=== PATIENT | male | born 1950 | race Caucasian/White ===

== ENCOUNTER 2022-06-26 15:16 | Inpatient (IN) | payer MEDICARE ==
[2022-06-26] MEDS ORDERED: SODIUM CHLORIDE 0.9% 500 ML 500 ML IV ONE (15:53)
--- NOTE | 2022-06-26 16:06 | ED ---
Syncope HPI - General Stated Complaint: Syncope Time Seen by Provider: 06/26/22 15:29 Source: patient Limitations: no limitations - History of Present Illness Initial Comments: This patient is a 71-year-old man who was sent here from the neurology clinic to have evaluation for syncopal episode. The patient had reportedly gone there with his this morning to be evaluated for generalized weakness and numbness throughout his whole body. Patient was having evaluation there when he reportedly passed out. The patient denies having any fall or injury. The patient states he feels some generalized weakness but otherwise back at his baseline. Patient states that he is only able to go from room to room in his home by holding onto the jones. He describes having his entire body be "numb" going back for 12 years. He does not see a primary physician. MD Complaint: collapsed -: hour(s) Prodromal Symptoms: lightheaded Witnessed: yes - by bystander Injuries Sustained Associated with Event: None Current Symptoms: weakness Treatments Prior to Arrival: none - Related Data Allergies Allergy/AdvReac Type Severity Reaction Status Date / Time No Known Allergies Allergy Verified 06/26/22 17:13 Review of Systems ROS Statement: Those systems with pertinent positive or pertinent negative responses have been documented in the HPI. ROS Other: All systems not noted in ROS Statement are negative. Constitutional: Reports: weakness Eyes: Denies: vision change ENT: Denies: congestion Respiratory: Denies: cough, dyspnea, hemoptysis Cardiovascular: Reports: syncope. Denies: chest pain, palpitations, orthopnea, edema Gastrointestinal: Denies: abdominal pain, vomiting, diarrhea, melena, hematochezia Genitourinary: Denies: dysuria, hematuria Musculoskeletal: Denies: back pain Skin: Denies: rash Neurological: Reports: abnormal gait. Denies: headache, weakness, numbness General Exam General appearance: alert, cachectic Head exam: Present: atraumatic, normocephalic Eye exam: Present: normal appearance. Absent: scleral icterus, conjunctival injection ENT exam: Present: mucous membranes dry Neck exam: Present: normal inspection Respiratory exam: Present: normal lung sounds bilaterally. Absent: respiratory distress, wheezes, rales, rhonchi, stridor Cardiovascular Exam: Present: regular rate, normal rhythm, normal heart sounds. Absent: systolic murmur, diastolic murmur, rubs, gallop GI/Abdominal exam: Present: soft. Absent: distended, tenderness, guarding, rebound, mass Extremities exam: Present: normal inspection, normal capillary refill. Absent: pedal edema, calf tenderness Neurological exam: Present: alert, CN II-XII intact. Absent: oriented X3 (The patient not able to state the exact date.), motor sensory deficit Skin exam: Present: warm, dry, intact, normal color. Absent: rash Course Vital Signs 06/26/22 06/26/22 15:30 19:14 Temperature 97.2 F L 98.0 F Pulse Rate 72 73 Respiratory 18 20 Rate Blood Pressure 150/68 103/74 O2 Sat by Pulse 96 100 Oximetry EKG Findings - EKG Comments: EKG Findings:: 12-lead ECG interpretation is extremely limited due to artifact, but shows sinus rhythm rate 89 - EKG Results: EKG: interpreted by RAUDEL, sinus rhythm (Rate 89 bpm) - Blocks, [place], Hypertrophy, ST Abn: AV and intraventricular conduction: 1 AV block Medical Decision Making - Medical Decision Making Patient is 71-year-old man here for syncopal episode. He is found to be moderately dehydrated, elevated lactic acid. No obvious source of infection, cultures are pending. Patient given IV fluids, but he is still too weak to stand at bedside or ambulate. We'll admit patient with possibility of rehabilitation/group home placement - Lab Data Result diagrams: 06/26/22 16:24 06/26/22 16:24 Lab Results 06/26/22 06/26/22 06/26/22 Range/Units 16:24 16:24 16:24 WBC 6.8 (3.8-10.6) k/uL RBC 4.04 L (4.30-5.90) m/uL Hgb 13.7 (13.0-17.5) gm/dL Hct 41.8 (39.0-53.0) % MCV 103.3 H (80.0-100.0) fL MCH 33.9 (25.0-35.0) pg MCHC 32.8 (31.0-37.0) g/dL RDW 13.3 (11.5-15.5) % Plt Count 243 (150-450) k/uL MPV 8.9 Neutrophils % (Manual) 67 % Lymphocytes % (Manual) 25 % Monocytes % (Manual) 8 % Neutrophils # (Manual) 4.56 (1.3-7.7) k/uL Lymphocytes # (Manual) 1.70 (1.0-4.8) k/uL Monocytes # (Manual) 0.54 (0-1.0) k/uL Nucleated RBCs 0 (0-0) /100 WBC Manual Slide Review Performed Macrocytosis Slight PT 10.1 (9.0-12.0) sec INR 0.9 (<1.2) APTT 18.8 L (22.0-30.0) sec Sodium 146 H (137-145) mmol/L Potassium 4.9 (3.5-5.1) mmol/L Chloride 111 H (98-107) mmol/L Carbon Dioxide 21 L (22-30) mmol/L Anion Gap 14 mmol/L BUN 25 H (9-20) mg/dL Creatinine 1.52 H (0.66-1.25) mg/dL Est GFR (CKD-EPI)AfAm 52 (>60 ml/min/1.73 sqM) Est GFR (CKD-EPI)NonAf 45 (>60 ml/min/1.73 sqM) Glucose 103 H (74-99) mg/dL POC Glucose (mg/dL) (70-110) mg/dL POC Glu Automation Controls Engineer ID Lactic Ac Sepsis Rflx Plasma Lactic Acid Jeremie (0.7-2.0) mmol/L Calcium 9.4 (8.4-10.2) mg/dL Total Bilirubin 0.3 (0.2-1.3) mg/dL AST 23 (17-59) U/L ALT 17 (4-49) U/L Alkaline Phosphatase 72 (38-126) U/L Ammonia (<30) umol/L Troponin I (0.000-0.034) ng/mL Total Protein 7.2 (6.3-8.2) g/dL Albumin 4.4 (3.5-5.0) g/dL Urine Color Urine Appearance (Clear) Urine pH (5.0-8.0) Ur Specific [place] (1.001-1.035) Urine Protein (Negative) Urine Glucose (UA) (Negative) Urine Ketones (Negative) Urine Blood (Negative) Urine Nitrite (Negative) Urine Bilirubin (Negative) Urine Urobilinogen (<2.0) mg/dL Ur Leukocyte Esterase (Negative) Serum Alcohol <10 mg/dL 06/26/22 06/26/22 06/26/22 Range/Units 16:24 16:24 16:26 WBC (3.8-10.6) k/uL RBC (4.30-5.90) m/uL Hgb (13.0-17.5) gm/dL Hct (39.0-53.0) % MCV (80.0-100.0) fL MCH (25.0-35.0) pg MCHC (31.0-37.0) g/dL RDW (11.5-15.5) % Plt Count (150-450) k/uL MPV Neutrophils % (Manual) % Lymphocytes % (Manual) % Monocytes % (Manual) % Neutrophils # (Manual) (1.3-7.7) k/uL Lymphocytes # (Manual) (1.0-4.8) k/uL Monocytes # (Manual) (0-1.0) k/uL Nucleated RBCs (0-0) /100 WBC Manual Slide Review Macrocytosis PT (9.0-12.0) sec INR (<1.2) APTT (22.0-30.0) sec Sodium (137-145) mmol/L Potassium (3.5-5.1) mmol/L Chloride (98-107) mmol/L Carbon Dioxide (22-30) mmol/L Anion Gap mmol/L BUN (9-20) mg/dL Creatinine (0.66-1.25) mg/dL Est GFR (CKD-EPI)AfAm (>60 ml/min/1.73 sqM) Est GFR (CKD-EPI)NonAf (>60 ml/min/1.73 sqM) Glucose (74-99) mg/dL POC Glucose (mg/dL) 140 H (70-110) mg/dL POC Glu Automation Controls Engineer ID Coleman Mallory Lactic Ac Sepsis Rflx Plasma Lactic Acid Jeremie 4.3 H* (0.7-2.0) mmol/L Calcium (8.4-10.2) mg/dL Total Bilirubin (0.2-1.3) mg/dL AST (17-59) U/L ALT (4-49) U/L Alkaline Phosphatase (38-126) U/L Ammonia <9 (<30) umol/L Troponin I <0.012 (0.000-0.034) ng/mL Total Protein (6.3-8.2) g/dL Albumin (3.5-5.0) g/dL Urine Color Urine Appearance (Clear) Urine pH (5.0-8.0) Ur Specific [place] (1.001-1.035) Urine Protein (Negative) Urine Glucose (UA) (Negative) Urine Ketones (Negative) Urine Blood (Negative) Urine Nitrite (Negative) Urine Bilirubin (Negative) Urine Urobilinogen (<2.0) mg/dL Ur Leukocyte Esterase (Negative) Serum Alcohol mg/dL 06/26/22 06/26/22 Range/Units 16:56 19:11 WBC (3.8-10.6) k/uL RBC (4.30-5.90) m/uL Hgb (13.0-17.5) gm/dL Hct (39.0-53.0) % MCV (80.0-100.0) fL MCH (25.0-35.0) pg MCHC (31.0-37.0) g/dL RDW (11.5-15.5) % Plt Count (150-450) k/uL MPV Neutrophils % (Manual) % Lymphocytes % (Manual) % Monocytes % (Manual) % Neutrophils # (Manual) (1.3-7.7) k/uL Lymphocytes # (Manual) (1.0-4.8) k/uL Monocytes # (Manual) (0-1.0) k/uL Nucleated RBCs (0-0) /100 WBC Manual Slide Review Macrocytosis PT (9.0-12.0) sec INR (<1.2) APTT (22.0-30.0) sec Sodium (137-145) mmol/L Potassium (3.5-5.1) mmol/L Chloride (98-107) mmol/L Carbon Dioxide (22-30) mmol/L Anion Gap mmol/L BUN (9-20) mg/dL Creatinine (0.66-1.25) mg/dL Est GFR (CKD-EPI)AfAm (>60 ml/min/1.73 sqM) Est GFR (CKD-EPI)NonAf (>60 ml/min/1.73 sqM) Glucose (74-99) mg/dL POC Glucose (mg/dL) (70-110) mg/dL POC Glu Automation Controls Engineer ID Lactic Ac Sepsis Rflx Y Plasma Lactic Acid Jeremie (0.7-2.0) mmol/L Calcium (8.4-10.2) mg/dL Total Bilirubin (0.2-1.3) mg/dL AST (17-59) U/L ALT (4-49) U/L Alkaline Phosphatase (38-126) U/L Ammonia (<30) umol/L Troponin I (0.000-0.034) ng/mL Total Protein (6.3-8.2) g/dL Albumin (3.5-5.0) g/dL Urine Color Light Yellow Urine Appearance Clear (Clear) Urine pH 6.5 (5.0-8.0) Ur Specific [place] 1.015 (1.001-1.035) Urine Protein Trace H (Negative) Urine Glucose (UA) Negative (Negative) Urine Ketones Negative (Negative) Urine Blood Negative (Negative) Urine Nitrite Negative (Negative) Urine Bilirubin Negative (Negative) Urine Urobilinogen <2.0 (<2.0) mg/dL Ur Leukocyte Esterase Negative (Negative) Serum Alcohol mg/dL Disposition Clinical Impression: Generalized weakness, Lactic acidosis Disposition: ADMITTED IP TO THIS HOSP Condition: Fair Is patient prescribed a controlled substance at d/c from ED?: No Referrals: None,Stated [Primary Care Provider] - 1-2 days
[2022-06-26 16:29] LABS: Glucose,Whole Blood 140 mg/dL (70-110)
[2022-06-26 16:52] LABS: ALT 17 U/L (4-49); AST 23 U/L (17-59); African American GFR (CKD) 52 (>60 ml/min/1.73 sqM); Albumin 4.4 g/dL (3.5-5.0); Alcohol <10 mg/dL; Alkaline Phosphatase 72 U/L (38-126); Anion Gap 14 mmol/L; Blood Urea Nitrogen 25 mg/dL (9-20); Calcium 9.4 mg/dL (8.4-10.2); Carbon Dioxide 21 mmol/L (22-30); Chloride 111 mmol/L (98-107); Glucose 103 mg/dL (74-99); Non-African American GFR(CKD) 45 (>60 ml/min/1.73 sqM); Potassium 4.9 mmol/L (3.5-5.1); Sodium 146 mmol/L (137-145); Total Bilirubin 0.3 mg/dL (0.2-1.3); Total Protein 7.2 g/dL (6.3-8.2)
[2022-06-26 16:56] LABS: Lactic Acid, Venous 4.3 mmol/L (0.7-2.0)
[2022-06-26 17:00] LABS: INR 0.9 (<1.2); Prothrombin Time 10.1 sec (9.0-12.0)
[2022-06-26 17:02] LABS: HCT 41.8 % (39.0-53.0); HGB 13.7 gm/dL (13.0-17.5); MCH 33.9 pg (25.0-35.0); MCHC 32.8 g/dL (31.0-37.0); MCV 103.3 fL (80.0-100.0); Macrocytosis Slight; Mean Platelet Volume 8.9; Platelet Count 243 k/uL (150-450); RBC 4.04 m/uL (4.30-5.90); RDW 13.3 % (11.5-15.5); WBC 6.8 k/uL (3.8-10.6)
[2022-06-26 17:04] LABS: Partial Thromboplastin Time 18.8 sec (22.0-30.0)
[2022-06-26 17:12] LABS: Monocytes # (M) 0.54 k/uL (0-1.0); Neutrophils # (M) 4.56 k/uL (1.3-7.7); Neutrophils % (M) 67 %; Nucleated Red Blood Cells 0 /100 WBC (0-0); Total Cells Counted 100
--- NOTE | 2022-06-26 17:40 | CT ---
EXAMINATION TYPE: CT brain wo con DATE OF EXAM: 06/26/2022 COMPARISON: None HISTORY: Altered mental status CT DLP: 1090.4 mGycm Automated exposure control for dose reduction was used. There is mild cerebral cortical atrophy. There is no mass effect nor midline shift. There is no evide nce of intracranial hemorrhage. There is patchy hypodensity in the periventricular white matter. Ther e is 1 cm old lacunar infarct in the mid right internal capsule. The calvarium is intact. IMPRESSION: Mild atrophy. Chronic small vessel ischemia. No acute intracranial abnormality. Left-sided mastoiditi s noted.
--- NOTE | 2022-06-26 17:47 | XR ---
EXAMINATION TYPE: XR chest 2V DATE OF EXAM: 06/26/2022 COMPARISON: NONE HISTORY: Altered mental status. Short of breath TECHNIQUE: 3 views FINDINGS: Heart is normal. Lungs are clear of infiltrate. No heart failure. There are no hilar masses . There is a mild pectus excavatum chest deformity. A small reticular interstitial density lateral ri ght upper lobe. IMPRESSION: There is probably some COPD. Mild pulmonary hyperinflation. Mild scarring or subsegmental atelectasis right upper lobe.
[2022-06-26] MEDS ORDERED: SODIUM CHLORIDE 0.9% 500 ML 500 ML IV STA (18:56)
[2022-06-26 19:33] LABS: Appearance,Urine Clear (Clear); Bilirubin,Urine Negative (Negative); Blood,Urine Negative (Negative); Color,Urine Light Yellow; Glucose,Urine (UA) Negative (Negative); Ketones,Urine Negative (Negative); Leukocyte Esterase,Urine Negative (Negative); Nitrite,Urine Negative (Negative); PH, Urine 6.5 (5.0-8.0); Protein,Urine Trace (Negative); Specific Gravity,Urine 1.015 (1.001-1.035); Urobilinogen,Urine <2.0 mg/dL (<2.0)
[2022-06-26] MEDS ORDERED: SODIUM CHLORIDE 0.9% 1,000 ML IV ONE (19:58)
[2022-06-26] MEDS ORDERED: NALOXONE 0.4 MG/ML 1 ML VIAL IV PRN (20:11)
--- NOTE | 2022-06-27 00:50 | P.HPIM ---
History of Present Illness H&P Date: 06/26/22 Chief Complaint: Syncope 71-year-old male with BPH Patient was visiting and neurology office today as he's been dealing with paresthesia of the hands and feet for over 12 years now is also struggling with gait for about 5 years now as he can't walk without leaning against wall and furniture as he loses balance. He also admits to multiple episodes of syncope over the past month. And today while he was at the neurology office he had another episode of syncope which she can't recall. No reported seizure-like activity loss of bladder or bowel control or biting tongue. Patient denies any associated palpitations or shortness of breath he literally doesn't remember wha t happened and he felt nothing before or after the episode. EMS was notified and he was brought into the hospital for evaluation. Blood work was done showed mAcrocytosis without anemia, elevated renal function creatinine without baseline, CT of the brain showed no acute pathology Patient denies any recent hospitalization or traveling. He denies any fevers or chills denies any coughing chest pain or trouble breathing denies any abdominal pain nausea vomiting or diarrhea. Patient does admit to heavy smoking denies any illicit drugs or alcohol. Patient also admits to poor appetite but claims that his weight has been stable which she is very thin built and cachectic Review of Systems Pertinent positives as noted in HPI. All other systems were reviewed and are negative Past Medical History Past Medical History: No Reported History History of Any Multi-Drug Resistant Organisms: None Reported Past Surgical History: No Surgical Hx Reported Past Psychological History: No Psychological Hx Reported Smoking Status: Current every day smoker Past Alcohol Use History: None Reported, Daily Past Drug Use History: None Reported - Past Family History family Additional Family Medical History / Comment(s): no reported CAD, OR CANCER Medications and Allergies Home Medications Medication Instructions Recorded Confirmed Type Ibuprofen [Motrin Ib] 600 mg PO BID 06/26/22 06/26/22 History Allergies Allergy/AdvReac Type Severity Reaction Status Date / Time No Known Allergies Allergy Verified 06/26/22 20:35 Physical Exam Vitals: Vital Signs Temp Pulse Resp BP Pulse Ox 06/26/22 19:14 98.0 F 73 20 103/74 100 06/26/22 15:30 97.2 F L 72 18 150/68 96 Intake and Output 06/26/22 06/26/22 06/26/22 06:59 14:59 22:59 Other: Weight 56.699 kg Constitutional: No acute distress, conversant, pleasant, cachectic Eyes: Anicteric sclerae, moist conjunctiva, Pupils equal round reactive to light ENMT: NC/AT Oropharynx clear, no erythema, or exudates Neck: Supple, FROM, no masses, or JVD No carotid bruits No thyromegaly Lungs: Clear to auscultation Clear to percussion Normal respiratory effort, no accessory muscle use Cardiovascular: Heart regular in rate and rhythm, No murmurs, gallops, or rubs No peripheral edema Abdominal: Soft Nontender, no guarding, rebound or rigidity Abdomen moving with respiration Normoactive bowel sounds No hepatomegaly, No splenomegaly No palpable mass No abdominal wall hernia noted Skin: Normal temperature, tone, texture, turgor No induration No subcutaneous nodules No rash, lesions No ulcers Extremities: No digital cyanosis No clubbing Pedal pulses intact and symmetrical Radial pulses intact and symmetrical No calf tenderness Psychiatric: Alert and oriented to person, place and time Appropriate affect fair judgement Neuro Muscles Strength 4/5 in all 4 extremities Decreased sensation to light touch over bilateral feet and hands Cranial nerves II-XII grossly intact Lymphatics: no palpable cervical or supraclavicular lymph nodes Results CBC & Chem 7: 06/26/22 16:24 06/26/22 16:24 Labs: Abnormal Lab Results - Last 24 Hours (Table) 06/26/22 06/26/22 06/26/22 Range/Units 16:24 16:24 16:24 RBC 4.04 L (4.30-5.90) m/uL MCV 103.3 H (80.0-100.0) fL APTT 18.8 L (22.0-30.0) sec Sodium 146 H (137-145) mmol/L Chloride 111 H (98-107) mmol/L Carbon Dioxide 21 L (22-30) mmol/L BUN 25 H (9-20) mg/dL Creatinine 1.52 H (0.66-1.25) mg/dL Glucose 103 H (74-99) mg/dL POC Glucose (mg/dL) (70-110) mg/dL Plasma Lactic Acid Jeremie (0.7-2.0) mmol/L Urine Protein (Negative) 06/26/22 06/26/22 06/26/22 Range/Units 16:24 16:26 19:11 RBC (4.30-5.90) m/uL MCV (80.0-100.0) fL APTT (22.0-30.0) sec Sodium (137-145) mmol/L Chloride (98-107) mmol/L Carbon Dioxide (22-30) mmol/L BUN (9-20) mg/dL Creatinine (0.66-1.25) mg/dL Glucose (74-99) mg/dL POC Glucose (mg/dL) 140 H (70-110) mg/dL Plasma Lactic Acid Jeremie 4.3 H* (0.7-2.0) mmol/L Urine Protein Trace H (Negative) Assessment and Plan Assessment: Frequent episodes of syncope Gait instability Macrocytosis without anemia Peripheral neuropathy Acute kidney injury Plan Neurochecks Fall precautions CT of the brain no acute pathology Check vitamin B12, vitamin D hydroxy 25, TSH, RBC folate PT consultation Neurology consult Initiate patient on Neurontin 100 mg 3 times a day residential monitor Check echocardiogram Avoid nephrotoxic meds IV fluid hydration with normal saline Monitor renal function Monitor urine output Ensure with all meals Nutrition consult Tobacco smoking daily Counseled to quit smoking DVT prophylaxis mechanical Full code
[2022-06-27] MEDS: GABAPENTIN 100 MG CAP PO SCH ×4 (01:44→23:05)
[2022-06-27] MEDS: ACETAMINOPHEN TAB 325 MG TAB PO PRN (04:57)
[2022-06-27] MEDS ORDERED: PANTOPRAZOLE 40 MG/10 ML VIAL IV SCH (09:00)
--- NOTE | 2022-06-27 11:02 | CA ---
Transthoracic Echo Report Name: Brenton Moraes Age: 71 Gender: M : 1950 Exam Date: 06/27/2022 08:13 Exam Location: [place] [facility] Ht (in): 60 Wt (lb): 125 Ordering Physician: Steven Call MD Attending/Referring Phys: [id number], Jakub Tap Builder Elvira Christina RDCS Procedure CPT: Indications: Syncope Cardiac Hx: Technical Quality: Fair Contrast 1: Total Dose (mL): Contrast 2: Total Dose (mL): MEASUREMENTS (Male / Female) Normal Values 2D ECHO LV Diastolic Diameter PLAX 4.3 cm 4.2 - 5.9 / 3.9 - 5.3 cm LV Systolic Diameter PLAX 3.0 cm IVS Diastolic Thickness 1.3 cm 0.6 - 1.0 / 0.6 - 0.9 cm LVPW Diastolic Thickness 1.1 cm 0.6 - 1.0 / 0.6 - 0.9 cm LV Relative Wall Thickness 0.5 RV Internal Dim ED PLAX 2.3 cm LA Systolic Diameter LX 2.4 cm 3.0 - 4.0 / 2.7 - 3.8 cm M-MODE Aortic Root Diameter MM 3.4 cm LA Systolic Diameter MM 4.2 cm LA Ao Ratio MM 1.2 MV E Point Septal Separation 0.5 cm AV Cusp Separation MM 2.6 cm DOPPLER MV Area PHT 3.2 cm??? Mitral E Point Velocity 51.4 cm/s Mitral A Point Velocity 71.1 cm/s Mitral E to A Ratio 0.7 MV Deceleration Time 233.7 ms MV E' Velocity 4.4 cm/s Mitral E to MV E' Ratio 11.6 FINDINGS Left Ventricle Left ventricular ejection fraction is estimated at 50-55%. Mildly increased left ventricular wall thickness. Right Ventricle Normal right ventricular size and function. Right Atrium Normal right atrial size. Left Atrium Normal left atrial size. Mitral Valve Structurally normal mitral valve. Trace to mild mitral regurgitation. Aortic Valve Aortic valve not well visualized. Tricuspid Valve Structurally normal tricuspid valve. Mild tricuspid regurgitation. Pulmonic Valve Structurally normal pulmonic valve. Pericardium Normal pericardium. Aorta Normal size aortic root and proximal ascending aorta. CONCLUSIONS Technically difficult study for interpretation Normal left ventricular dimension and systolic function Poorly visualized intracardiac valves Previewed by: Dr. Salvador Nguyen MD (Electronically Signed) Final Date: 27 June 2022 11:01
--- NOTE | 2022-06-27 12:03 | US ---
EXAMINATION TYPE: US carotid duplex BILAT DATE OF EXAM: 06/27/2022 COMPARISON: NONE CLINICAL HISTORY: syncope. Syncope, weakness TECHNIQUE: Carotid duplex ultrasound examination. Indirect Doppler criteria was utilized. FINDINGS: EXAM MEASUREMENTS: RIGHT: Peak Systolic Velocity (PSV) cm/sec ----- Right CCA: 65.8 ----- Right ICA: 197.6 ----- Right ECA: 81.9 ICA/CCA ratio: 3.0 RIGHT: End Diastole cm/sec ----- Right CCA: 15.3 ----- Right ICA: 33.2 ----- Right ECA: 0.0 LEFT: Peak Systolic Velocity (PSV) cm/sec ----- Left CCA: 120.0 ----- Left ICA: 122.6 ----- Left ECA: 102.3 ICA/CCA ratio: 1.0 LEFT: End Diastole cm/sec ----- Left CCA: 11.6 ----- Left ICA: 28.9 ----- Left ECA: 11.9 VERTEBRALS (direction of flow): Right Vertebral: Antegrade Left Vertebral: Unable to visualize Rhythm: Normal WAGON WASHER NOTES: Heterogeneous plaque bilaterally with elevated velocities right ICA IMPRESSION: 1. Atheromatous plaquing bilaterally greater on the right. 2. Moderate narrowing between 50 and 69% proximal right internal carotid artery. 3. Mild narrowing approaching 50% within the proximal left internal carotid artery. Criteria for Assigning % of Stenosis / Diameter reduction (Estimation based on the indirect measurements of the internal carotid artery velocities (ICA PSV). 1. Normal (no stenosis)=ICA PSV < 125 cm/s: ratio < 2.0: ICA EDV<40 cm/s. 2. Less than 50% stenosis=ICA PSV < 125 cm/s: ratio < 2.0: ICA EDV<40 cm/s. 3. 50 to 69% stenosis=ICA PSV of 125 to 230 cm/s: ration 2.0 ? 4.0: ICA EDV 40-100 cm/s. 4. Greater than 70% stenosis to near occlusion= ICA PSV > 230 cm/s: ratio > 4.0: ICA EDV > 100 cm/s. 5. Near occlusion= ICA PSV velocities may be low or undetectable: variable ratio and ICA EDV. 6. Total occlusion=unable to detect flow.
--- NOTE | 2022-06-27 12:06 | XR ---
EXAMINATION TYPE: XR lumbar spine 2 or 3V DATE OF EXAM: 06/27/2022 COMPARISON: None HISTORY: Gait instability and numbness to lower extremities TECHNIQUE: 3 view lumbar spine FINDINGS: There is a grade 1 anterior listhesis of L4 anteriorly on L5. There is a grade 1 retrolist hesis of L2 posteriorly on L3. Some mild superior endplate compression changes may be present at L2 There is posterior disc space narrowing present at L2-3 L3-4. Mild diffuse disc space narrowing is pr esent L5-S1. Rotoscoliosis is present. IMPRESSION: 1. Grade 1 anterolisthesis of L4 anteriorly on L5. A grade 1 retrolisthesis of L2 on L3 is present. 2. Mild superior endplate changes L2. 3. Degenerative disc changes
--- NOTE | 2022-06-27 14:33 | P.PN ---
Subjective Progress Note Date: 06/27/22 Patient seen and examined at bedside. Patient denied chest pain shortness of breath nausea vomiting fevers or chills. Patient continues to have upper and lower extremity neuropathy and pain. Patient also admits to back pain. Objective - Vital Signs Vital signs: Vital Signs Temp 98 F 06/27/22 09:41 Pulse 70 06/27/22 09:41 Resp 16 06/27/22 09:41 BP 114/74 06/27/22 09:41 Pulse Ox 96 06/27/22 09:41 FiO2 Intake & Output 06/26/22 06/27/22 06/27/22 18:59 06:59 18:59 Output Total 400 Balance -400 Weight 56.699 kg Output: Urine 400 Other: # Voids 1 - Exam General: [non toxic], [no distress], [appears at stated age] Derm: [warm], [dry] Head: [atraumatic], [normocephalic], [symmetric] Eyes: [EOMI], [no lid lag], [anicteric sclera] Mouth: [no lip lesion], [mucus membranes moist] Cardiovascular: [S1S2 reg], [no murmur], [positive posterior tibial pulse bilateral], Lungs: [CTA bilateral], [no rhonchi, no rales] , [no accessory muscle use] Abdominal: [soft], [ nontender to palpation], [no guarding], [no appreciable organomegaly] Ext: [4 out of 5 bilateral muscle strength gross muscle atrophy], [no edema], [no contractures] Neuro: [ CN II-XI grossly intact], [no focal neuro deficits] Psych: [Alert], [oriented], [appropriate affect] - Labs CBC & Chem 7: 06/26/22 16:24 06/26/22 16:24 Labs: Abnormal Lab Results - Last 24 Hours (Table) 06/26/22 06/26/22 06/26/22 Range/Units 16:24 16:24 16:24 RBC 4.04 L (4.30-5.90) m/uL MCV 103.3 H (80.0-100.0) fL APTT 18.8 L (22.0-30.0) sec Sodium 146 H (137-145) mmol/L Chloride 111 H (98-107) mmol/L Carbon Dioxide 21 L (22-30) mmol/L BUN 25 H (9-20) mg/dL Creatinine 1.52 H (0.66-1.25) mg/dL Glucose 103 H (74-99) mg/dL POC Glucose (mg/dL) (70-110) mg/dL Plasma Lactic Acid Jeremie (0.7-2.0) mmol/L Urine Protein (Negative) 06/26/22 06/26/22 06/26/22 Range/Units 16:24 16:26 19:11 RBC (4.30-5.90) m/uL MCV (80.0-100.0) fL APTT (22.0-30.0) sec Sodium (137-145) mmol/L Chloride (98-107) mmol/L Carbon Dioxide (22-30) mmol/L BUN (9-20) mg/dL Creatinine (0.66-1.25) mg/dL Glucose (74-99) mg/dL POC Glucose (mg/dL) 140 H (70-110) mg/dL Plasma Lactic Acid Jeremie 4.3 H* (0.7-2.0) mmol/L Urine Protein Trace H (Negative) Assessment and Plan Assessment: Assessment/Plan 1. 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 Macrocytosis without anemia Trend CBC Vitamin B12 within normal limits 3. Peripheral neuropathy initiate patient on Neurontin 100 mg 3 times a day 4.Acute kidney injury Slow IV hydration Trend BUN and creatinine 5. malnutrtion Ensure with all meals Nutrition consult 6. Tobacco smoking daily Counseled to quit smoking DVT prophylaxis mechanical Full code
[2022-06-27] MEDS: SODIUM CHLORIDE 0.9% 1,000 ML IV SCH (15:07)
[2022-06-27 15:22] VITALS: BMI 17.9
[2022-06-27 15:27] LABS: ALT 18 U/L (4-49); AST 24 U/L (17-59); African American GFR (CKD) 78 (>60 ml/min/1.73 sqM); Albumin 3.5 g/dL (3.5-5.0); Albumin/Globulin Ratio 1.5; Alkaline Phosphatase 63 U/L (38-126); Anion Gap 10 mmol/L; Blood Urea Nitrogen 22 mg/dL (9-20); Calcium 8.8 mg/dL (8.4-10.2); Carbon Dioxide 22 mmol/L (22-30); Chloride 109 mmol/L (98-107); Globulin 2.4 g/dL; Glucose 118 mg/dL (74-99); Non-African American GFR(CKD) 68 (>60 ml/min/1.73 sqM); Sodium 141 mmol/L (137-145); Total Bilirubin 0.3 mg/dL (0.2-1.3); Total Protein 5.9 g/dL (6.3-8.2)
[2022-06-27 15:35] LABS: Basophils # (A) 0.1 k/uL (0-0.2); Basophils % (A) 1 %; Eosinophils # (A) 0.2 k/uL (0-0.7); Eosinophils % (A) 3 %; HCT 32.8 % (39.0-53.0); Hypochromasia Slight; Lymphocytes # (A) 1.5 k/uL (1.0-4.8); Lymphocytes % (A) 31 %; MCH 34.8 pg (25.0-35.0); MCHC 33.5 g/dL (31.0-37.0); MCV 103.9 fL (80.0-100.0); Macrocytosis Slight; Mean Platelet Volume 8.3; Monocytes # (A) 0.4 k/uL (0-1.0); Monocytes % (A) 9 %; Neutrophils # (A) 2.6 k/uL (1.3-7.7); Neutrophils % (A) 52 %; Platelet Count 224 k/uL (150-450); RBC 3.15 m/uL (4.30-5.90); RDW 12.8 % (11.5-15.5); WBC 4.9 k/uL (3.8-10.6)
--- NOTE | 2022-06-27 18:23 | MR ---
EXAMINATION TYPE: MR brain/cspine wo DATE OF EXAM: 06/27/2022 COMPARISON: None HISTORY: Weakness, ataxia Multiplanar multiecho imaging of the brain and cervical spine performed without contrast. On the T2 and FLAIR images there are numerous areas of increased signal in the periventricular white matter and noel-white matter junction of both cerebral hemispheres. These are somewhat coalescent and measure up to 1.3 cm in thickness. There are multiple discrete high signal foci on the diffusion lavon ges in the right centrum semiovale that measure up to almost 10 mm. There is also single 3 mm focus i n the posterior left thalamus. There is some cerebral mild cortical atrophy. The brainstem is intact. Cerebellum is intact. No evide nce of posterior fossa mass. Internal auditory canals appear normal. The cervical vertebra show fairly normal alignment. There is a minimal retrolisthesis at C6-7. There is posterior disc herniation at C6-7. There is a 5 mm area of increased signal on the T2 images in th e cervical cord at the C4-5 level. There is uncovertebral spurring and left-sided neural foraminal na rrowing at C6-7. There is a small posterior disc bulge at C4-5. No significant spinal stenosis seen a t C4-5 to explain the cervical cord signal abnormality. IMPRESSION: Spondylotic changes in the cervical spine. Large area of abnormal signal in the cervical cord at the C4-5 level could be infarct or demyelinating disease. No cord mass. Mild left-sided C6-7 neural roland inal impingement. Posterior C6-7 disc herniation without significant spinal stenosis. There is some m ild relative spinal stenosis at C3-4. Canal measures 6 mm. Extensive coalescent increased signal in the periventricular white matter in both cerebral hemisphere s. This could be demyelinating disease or microvascular ischemia. Diffusion weighted images show increased signal in multiple foci in the right cerebral hemisphere yoli trum semiovale and also the left thalamus that could be acute infarcts or acute demyelinating disease .
--- NOTE | 2022-06-28 00:52 | P.CNNES ---
History of Present Illness Consult date: 06/27/22 Requesting physician: Steven Call Reason for Consult: Gait instability History of Present Illness: Patient is a 71-year-old male came to the hospital by ambulance yesterday at 3:16 PM for a syncopal spell at his neurologist office. Patient states that he was at his neurologist office, when he passed out. He did not know what happened after that. Patient states that he has passed out two other times. Each time he has been sitting when he passes out. He does not recall what happened. It just comes on and he is out for a few minutes. Never had any tongue bite or loss of control of urine. As per EMS flow sheet, when they arrived, patient was sitting in the wheelchair in exam room. Patient was alert and oriented 4, complaining of numbness in his hands and feet. This has been going on for several years. Patient had come into the neurology clinic for an appointment. While he was being seen by the physician medical assistant per diem (PA), he had a syncopal episode. The PA went to get the M.D., but by the time they got back, the patient was alert again. Patient had not fallen and had no trauma. Patient's family stated that this has happened about 2 weeks ago. Patient's vitals at the scene was blood pressure 153/65 pulse is 70 respirations 16, saturation 95%. Blood test shows normal CBC with elevated MCV 103.3. PT/PTT is normal, sodium 146 potassium 4.9 BUN 25 creatinine 1.52. Plasma lactate 4.3. Vitamin B12 722, vitamin D 50.4, troponin negative. UA negative, blood alcohol level negative. CT head showed mild atrophy. Chronic small vessel ischemia. No acute process. Left-sided mastoiditis noted. I personally reviewed CT head. There is some small vessel disease. Old lacune in the right internal capsule. Chest x-ray showed probably some COPD. Mild pulmonary hyperinflation. Mild scarring or subsegmental atelectasis right upper lobe. EKG shows sinus rhythm with first- degree AV block. Possible right atrial enlargement. Patient states he has very limited walking. He goes from living room to the kitchen, hanging onto the jones. He has problem with gait for about last 5-6 years, getting worse particularly this year. Patient states that the symptoms started in the upper body then went to the arms, legs, feet neck down, left more than right. Patient states that he uses wheelchair when he goes outside. When he walks, there are slow steps, not a real good gait. He admits to sometimes localized low back pain, which he rates 5/10, cannot stand up straight due to the pain. Patient has some problems with urine, as he has urgency, sometimes cannot control of urine. He believes it is the result of exposure to agent orange in 1968 in the [place]. Also believes he had history of Malaria in 1968. Patient only takes ibuprofen at home. Patient denies any marijuana use or any drugs. He quit alcohol. He drinks 1 beer per day. He has smoked 1 pack per day most of his life since age 14-15. In the last 2-3 years, he rolls his own cigarette. He smokes < 1 pack per day since age [age]. Patient states that he lives with his . He has one biological child. He denies diabetes. Review of Systems Constitutional: Denies chills, Denies fever Eyes: denies blurred vision, denies pain Ears, nose, mouth and throat: Denies headache, Denies sore throat Cardiovascular: Reports as per HPI Respiratory: Denies cough Gastrointestinal: Denies abdominal pain, Denies diarrhea, Denies nausea, Denies vomiting Genitourinary: Reports urinary frequency Musculoskeletal: Reports frequent falls, Reports gait dysfunction, Reports low back pain, Reports neck pain Integumentary: Denies pruritus, Denies rash Neurological: Reports as per HPI Psychiatric: Reports anxiety, Denies irritability, Denies suicidal ideation Endocrine: Reports fatigue, Reports weight change Hematologic/Lymphatic: Reports easy bruising Past Medical History Past Medical History: No Reported History History of Any Multi-Drug Resistant Organisms: None Reported Past Surgical History: No Surgical Hx Reported Past Psychological History: No Psychological Hx Reported Smoking Status: Current every day smoker Past Alcohol Use History: None Reported, Daily Past Drug Use History: None Reported - Past Family History family Additional Family Medical History / Comment(s): no reported CAD, OR CANCER Medications and Allergies Home Medications Medication Instructions Recorded Confirmed Type Ibuprofen [Motrin Ib] 600 mg PO BID 06/26/22 06/26/22 History Allergies Allergy/AdvReac Type Severity Reaction Status Date / Time No Known Allergies Allergy Verified 06/26/22 20:35 Physical Examination - Vital Signs Vital Signs: Vital Signs Temp Pulse Pulse Resp BP BP Pulse Ox 06/27/22 04:44 67 18 121/70 96 06/26/22 22:54 98.2 F 70 20 131/79 96 06/26/22 19:14 98.0 F 73 20 103/74 100 06/26/22 15:30 97.2 F L 72 18 150/68 96 Intake and Output 06/26/22 06/27/22 06/27/22 22:59 06:59 14:59 Output Total 400 Balance -400 Output: Urine 400 Other: # Voids 1 Weight 56.699 kg Patient is an elderly male, in no acute distress. Patient appears somewhat cachectic. Patient is alert awake oriented to time place and person. He knows it is 06/26/2022 and that he is in [facility]. Speech and language functions are normal. Patient can name and repeat very well. No aphasia or dysarthria. Attention, concentration and fund of knowledge is adequate. On cranial nerve examination, pupils are equal, although at times the right appears slightly larger than the left. He appears to have cataract in both eyes, right more than left. His visual cho are full on confrontation, with no neglect on double simultaneous stimulation. Extraocular muscles are intact with no nystagmus. Face is symmetric, tongue protrudes to the midline. Palatal elevation and sensation normal, hearing and shoulder shrug normal, facial sensation normal. On muscle strength testing, there is no pronator drift, and the strength is (right/left) deltoid 5/4, biceps 5/4, triceps 5/5, field marketing specialist 5/5, hip flexion 4/4, knee extension 5/5, ankle dorsiflexion 5/5, toe extension 5-/5-. Deep tendon reflexes are symmetric (right/left) biceps 1+/3, brachioradialis 1/2+, triceps 1+/2+, knees 3/3, ankles 2/2 and plantars are upgoing bilaterally. Sensory to touch is equal except decreased left hand as compared to the right. There is no neglect on double simultaneous stimulation. Cerebellar function showed ataxia for [id number] testing on the left, not on the right. He has dysdiadochokinesia on the left. He has significant ataxia for [id number] testing on both sides. Tone of muscles normal. Bulk of muscles overall diminished. Gait deferred.. On general examination, there is no carotid bruit or murmur, S1-S2 audible. Chest is clear on consultation. Abdomen is soft nontender. No organomegaly, bowel sounds present. Peripheral pulses are present. No edema. He has some petechia and some bruises on his extremities. Results - Laboratory Findings CBC and BMP: 06/27/22 14:58 06/27/22 14:58 Abnormal Lab Findings: Abnormal Labs 06/26/22 06/26/22 06/26/22 16:24 16:24 16:24 RBC 4.04 L MCV 103.3 H APTT 18.8 L Sodium 146 H Chloride 111 H Carbon Dioxide 21 L BUN 25 H Creatinine 1.52 H Glucose 103 H POC Glucose (mg/dL) Plasma Lactic Acid Jeremie Urine Protein 06/26/22 06/26/22 06/26/22 16:24 16:26 19:11 RBC MCV APTT Sodium Chloride Carbon Dioxide BUN Creatinine Glucose POC Glucose (mg/dL) 140 H Plasma Lactic Acid Jeremie 4.3 H* Urine Protein Trace H Assessment and Plan Assessment: * Syncopal spell 3, unclear etiology. All of them occurred in sitting position, therefore need to rule out arrhythmia, seizure, versus orthostasis. * Gait dysfunction, generalized weakness, with spasticity, ataxia rule out spinal stenosis. Rule out demyelinating disease, CVA. * Ataxia involving the left upper extremity and bilateral lower limbs. Rule out spinal stenosis. Rule out central cause. * Tobacco use * Reported exposure to agent orange in 1968. Plan: * MRI of the brain and cervical spine evaluate for CVA, demyelinating disease, spinal stenosis and other structural abnormalities. * EEG rule out epileptiform activity. * Carotid Doppler * 2-D echo * B12 is 722, TSH normal 1.27, vitamin D 50. Ammonia <9. Check folate, A1c, Lyme titer. * Neurology will follow. Thank you for the consult. Time with Patient: Greater than 30
--- NOTE | 2022-06-28 02:56 | EEG ---
ELECTROENCEPHALOGRAM REPORT PREAMBLE: This is a 71-year-old male with recurrent syncopal spells. This study is performed to evaluate for any epileptiform activity. EEG FINDINGS: This is a 21-channel digital EEG recorded with video component, utilizing 10/20 international system with referential and bipolar montages. Background consists of well developed, well regulated moderate voltage activity in 9 hertz alpha. Background is posterior dominant and reactive to eye opening and closing. Photic driving response was seen with some flash frequencies. Some drowsiness was seen with appearance of bilaterally symmetric theta frequency rhythm. Deeper stages of sleep were not attained. No focal or generalized epileptiform activity was seen. EKG channel showed no obvious arrhythmia. IMPRESSION: This is a normal awake and drowsy EEG. No focal, lateralized or epileptiform activity was seen. MMODL / IJN: [id number] /
[2022-06-28] MEDS: GABAPENTIN 100 MG CAP PO SCH ×3 (08:24→23:27)
[2022-06-28] MEDS: PANTOPRAZOLE 40 MG TABLET PO SCH (08:24)
[2022-06-28 09:13] LABS: ALT 10 U/L (10-49); AST 18 U/L (14-35); African American GFR (CKD) 86.2 (60.0-200.0); Albumin 3.4 g/dL (3.8-4.9); Albumin/Globulin Ratio 1.62 (1.60-3.17); Alkaline Phosphatase 64 U/L (41-126); Blood Urea Nitrogen 17.1 mg/dL (9.0-27.0); Calcium 8.7 mg/dL (8.7-10.3); Carbon Dioxide 23.4 mmol/L (20.0-27.5); Chloride 112 mmol/L (96-109); Globulin 2.1 g/dL (1.6-3.3); Glucose 98 mg/dL (70-110); Non-African American GFR(CKD) 74.3 (60.0-200.0); Potassium 4.2 mmol/L (3.5-5.5); Sodium 144 mmol/L (135-145); Total Bilirubin <0.15 mg/dL (0.30-1.20); Total Protein 5.5 g/dL (6.2-8.2)
[2022-06-28 09:21] LABS: Basophils # (A) 0.08 X 10*3/uL (0.00-0.10); Basophils % (A) 1.4 %; Eosinophils # (A) 0.29 X 10*3/uL (0.04-0.35); Eosinophils % (A) 5.3 %; HCT 33.8 % (39.6-50.0); HGB 10.9 g/dL (13.0-17.0); Immature Grans, Automated 0.2 %; Lymphocytes # (A) 2.01 X 10*3/uL (0.90-5.00); Lymphocytes % (A) 36.4 %; MCH 33.9 pg (27.0-32.0); MCHC 32.2 g/dL (32.0-37.0); Mean Platelet Volume 10.6 fL (9.5-12.2); Monocytes # (A) 0.65 X 10*3/uL (0.20-1.00); Monocytes % (A) 11.8 %; NRBC Per 100 WBC 0 /100 WBCS (0.0-0.0); Neutrophils # (A) 2.48 X 10*3/uL (1.80-7.70); Neutrophils % (A) 44.9 %; Platelet Count 231 X 10*3/uL (140-440); RBC 3.22 X 10*6/uL (4.40-5.60); RDW 13.2 % (11.5-14.5); WBC 5.52 X 10*3/uL (4.50-10.00)
--- NOTE | 2022-06-28 10:40 | P.CRDCN ---
History of Present Illness Consult date: 06/28/22 Chief complaint: Cardiac arrhythmia History of present illness: The patient is a pleasant 71-year-old gentleman was no significant cardiovascular history from before with a follow with a home therapy clinician regularly who was admitted to the hospital because of recurrent syncope. We consulted to see the patient because of episodes of sinus pause noted last night. The patient does have history of neuropathy and he underwent recently an investigation including a computed tomography scan of the neck and that showed what it seems to be disc herniation at the level of C6-C7 subsequently he was seen by orthopedic surgeon who advised the patient to undergo surgery to relieve the numbness in the upper and lower extremities. The patient did have to episodes of syncope over the last several weeks. The first episode when he was at home sitting on the dinner table and suddenly he lost his consciousness without any warning symptoms. The second episode was at his doctor's office when he was having an x-ray and at that point also he was in the sitting position when he did have another episode of syncope as well. The 2 episodes of syncope were not associated with any warning symptoms and also wear in a sitting position. No warning symptoms off work feeling or sweating or nausea or vomiting. No other symptoms of any chest pain or chest discomfort or shortness of breath. No cardiovascular history of coronary artery disease or congestive h eart failure or cardiac arrhythmia in the past and he never seen any home therapy clinician before. I did review the telemetry which revealed multiple episodes of sinus pauses have been mostly during the night with the longest 2.2 seconds. He underwent an echo which revealed normal left ventricular systolic function. He underwent also a TSH and that came in to be unremarkable. He is not on any AV bartolo serafin agents. Past Medical History Past Medical History: No Reported History Additional Past Medical History / Comment(s): recently went to neurologist and had syncopal episode. pt states he has been numb all over, neck pain, and wea kness and unable to walk. states started years ago but recently went to doctor. possible exposure to agent orange History of Any Multi-Drug Resistant Organisms: None Reported Past Surgical History: No Surgical Hx Reported Past Psychological History: No Psychological Hx Reported Smoking Status: Current every day smoker Past Alcohol Use History: None Reported, Daily Past Drug Use History: None Reported - Past Family History family Additional Family Medical History / Comment(s): no reported CAD, OR CANCER Medications and Allergies Home Medications Medication Instructions Recorded Confirmed Type Ibuprofen [Motrin Ib] 600 mg PO BID 06/26/22 06/26/22 History Allergies Allergy/AdvReac Type Severity Reaction Status Date / Time No Known Allergies Allergy Verified 06/26/22 20:35 Physical Exam Vitals: Vital Signs Temp Pulse Pulse Resp BP BP Pulse Ox 06/28/22 08:00 62 17 06/28/22 07:44 97.7 F 62 17 123/76 99 06/28/22 02:27 98.3 F 67 17 119/57 98 06/27/22 22:05 65 17 06/27/22 20:34 97.5 F L 65 17 110/75 97 06/27/22 15:30 97.5 F L 72 17 119/87 97 06/27/22 14:25 60 16 110/60 98 Intake and Output 06/27/22 06/28/22 06/28/22 22:59 06:59 14:59 Output Total 475 200 Balance -475 -200 Output: Urine 475 200 Other: Voiding Method Urinal Urinal # Voids 1 Weight 56.699 kg - Constitutional General appearance: no acute distress - Respiratory Respiratory: bilateral: CTA - Cardiovascular Rhythm: regular Heart sounds: normal: S1, S2 Abnormal Heart Sounds: systolic murmur Results 06/28/22 06:25 06/28/22 06:25 Cardiac Enzymes 06/27/22 06/28/22 Range/Units 14:58 06:25 AST 24 18 (17-59) U/L CBC 06/27/22 06/28/22 Range/Units 14:58 06:25 WBC 4.9 5.52 (3.8-10.6) k/uL RBC 3.15 L 3.22 L (4.30-5.90) m/uL Hgb 11.0 L 10.9 L (13.0-17.5) gm/dL Hct 32.8 L 33.8 L (39.0-53.0) % Plt Count 224 231 (150-450) k/uL Comprehensive Metabolic Panel 06/27/22 06/28/22 Range/Units 14:58 06:25 Sodium 141 144 (137-145) mmol/L Potassium 4.0 4.2 (3.5-5.1) mmol/L Chloride 109 H 112 H (98-107) mmol/L Carbon Dioxide 22 23.4 (22-30) mmol/L BUN 22 H 17.1 (9-20) mg/dL Creatinine 1.08 1.0 (0.66-1.25) mg/dL Glucose 118 H 98 (74-99) mg/dL Calcium 8.8 8.7 (8.4-10.2) mg/dL AST 24 18 (17-59) U/L ALT 18 10 (4-49) U/L Alkaline Phosphatase 63 64 (38-126) U/L Total Protein 5.9 L 5.5 L (6.3-8.2) g/dL Albumin 3.5 3.4 L (3.5-5.0) g/dL Current Medications Generic Name Dose Route Start Last Admin Trade Name Freq PRN Reason Stop Dose Admin Acetaminophen 650 mg 06/26/22 20:11 06/27/22 04:57 Acetaminophen Tab 325 Mg Tab PO 650 mg Q6HR PRN Administration Mild Pain or Fever > 100.5 Gabapentin 100 mg 06/27/22 00:45 06/28/22 08:24 Gabapentin 100 Mg Cap PO 100 mg TID SHALONDA Administration Sodium Chloride 1,000 mls @ 75 mls/hr 06/27/22 14:45 06/27/22 15:07 Saline 0.9% IV 75 mls/hr .[id number] SHALONDA Administration Naloxone HCl 0.2 mg 06/26/22 20:11 Naloxone 0.4 Mg/Ml 1 Ml Vial IV Q2M PRN Opioid Reversal Pantoprazole Sodium 40 mg 06/28/22 07:30 06/28/22 08:24 Pantoprazole 40 Mg Tablet PO 40 mg [id number] SHALONDA Administration Intake and Output 06/27/22 06/28/22 06/28/22 22:59 06:59 14:59 Output Total 475 200 Balance -475 -200 Output: Urine 475 200 Other: Voiding Method Urinal Urinal # Voids 1 Weight 56.699 kg 06/28/22 06:25 06/28/22 06:25 Assessment and Plan Assessment: Assessment #1 intermittent episodes of syncope not associated with any warning symptoms and both where in the sitting position #2 cardiac arrhythmia into of sinus pauses with the longest of 2.5 seconds mostly during the night #3 degenerative changes in the cervical spine #4 bilateral upper and lower extent his numbness secondary to #3 Plan #1 definitely episodes of syncope are concerning to be of cardiac etiology/cardiac syncope giving that both have been in sitting position and with no warning symptoms #2 continue monitor the patient on telemetry. So far he did not have any episodes of sinus pauses longest then 3 seconds #3 thyroid disease was ruled out. TSH came in to be unremarkable #4 avoid any AV bartolo serafin agents #5 further recommendation to follow.
--- NOTE | 2022-06-28 12:02 | CT ---
CT of the cervical and thoracic spine without contrast. HISTORY: Pain. COMPARISON: None. TECHNIQUE: Multiple axial images were obtained through the skull base through the cervical and thorac ic spine without contrast. Coronal and sagittal reconstructions were generated and reviewed. FINDINGS: CT cervical spine. The craniovertebral junction relationships and prevertebral soft tissues are normal. There is a 3.5 mm anterolisthesis of C4 on C5. The cervical vertebral segments are normal in height a nd there is no evidence of fracture. There is moderate degenerative disc disease at the C6-7 level wh ere there is moderate disc space narrowing and spondylosis. Intervertebral discs from C2 through C6 a re well-maintained in height. There is no bony encroachment of the cervical spinal canal. Secondary to marked degeneration of facet joints and uncovertebral joint there is marked bony neural foraminal stenosis at this C4-5 level yuliya aterally left greater than right is also significant bony neural foraminal encroachment secondary to facet degeneration at the C6-[address] thoracic spine. The thoracic vertebral segments are normal in height and alignment. There is moderate degenerative di sc disease with moderate disc space narrowing and spondylosis at the T8-9 and T9-10 level. There is n o bony encroachment of the thoracic spinal canal the paraspinal soft tissues are unremarkable. IMPRESSION: 1. Anterolisthesis of C4 on C5 as described above. 2. Marked degeneration of the uncovertebral joints and facet joints at the C4-5 and C6-7 levels resul ting in neural foraminal stenosis as described above 3. Moderate degenerative disc disease in the mid to lower thoracic spine as described above. 4. Thoracic vertebral segments are normal in both height and alignment. No bony compromise of the tho racic spinal canal.
--- NOTE | 2022-06-28 12:13 | P.PN ---
Subjective Progress Note Date: 06/28/22 The patient was seen at bedside, no acute events overnight. Objective - Vital Signs Vital signs: Vital Signs Temp 97.7 F 06/28/22 07:44 Pulse 62 06/28/22 08:00 Resp 17 06/28/22 08:00 BP 123/76 06/28/22 07:44 Pulse Ox 99 06/28/22 07:44 FiO2 Intake & Output 06/27/22 06/28/22 06/28/22 18:59 06:59 18:59 Output Total 475 200 Balance -475 -200 Weight 56.699 kg Output: Urine 475 200 Other: Voiding Method Urinal Urinal # Voids 1 - Exam General: [non toxic], [no distress], [appears at stated age] Derm: [warm], [dry] Head: [atraumatic], [normocephalic], [symmetric] Eyes: [EOMI], [no lid lag], [anicteric sclera] Mouth: [no lip lesion], [mucus membranes moist] Cardiovascular: [S1S2 reg], [no murmur], [positive posterior tibial pulse bilateral], Lungs: [CTA bilateral], [no rhonchi, no rales] , [no accessory muscle use] Abdominal: [soft], [ nontender to palpation], [no guarding], [no appreciable organomegaly] Ext: [4 out of 5 bilateral muscle strength gross muscle atrophy], [no edema], [no contractures] Neuro: [ CN II-XI grossly intact], [no focal neuro deficits] Psych: [Alert], [oriented], [appropriate affect] - Labs CBC & Chem 7: 06/28/22 06:25 06/28/22 06:25 Labs: Abnormal Lab Results - Last 24 Hours (Table) 06/27/22 06/27/22 06/28/22 Range/Units 14:58 14:58 06:25 RBC 3.15 L 3.22 L (4.30-5.90) m/uL Hgb 11.0 L 10.9 L (13.0-17.5) gm/dL Hct 32.8 L 33.8 L (39.0-53.0) % MCV 103.9 H 105.0 H (80.0-100.0) fL MCH 33.9 H (27.0-32.0) pg Chloride 109 H (98-107) mmol/L Anion Gap (10.00-18.00) mmol/L BUN 22 H (9-20) mg/dL Glucose 118 H (74-99) mg/dL Total Bilirubin (0.30-1.20) mg/dL Total Protein 5.9 L (6.3-8.2) g/dL Albumin (3.8-4.9) g/dL 06/28/22 Range/Units 06:25 RBC (4.30-5.90) m/uL Hgb (13.0-17.5) gm/dL Hct (39.0-53.0) % MCV (80.0-100.0) fL MCH (27.0-32.0) pg Chloride 112 H (98-107) mmol/L Anion Gap 8.60 L (10.00-18.00) mmol/L BUN (9-20) mg/dL Glucose (74-99) mg/dL Total Bilirubin <0.15 L (0.30-1.20) mg/dL Total Protein 5.5 L (6.3-8.2) g/dL Albumin 3.4 L (3.8-4.9) g/dL Assessment and Plan Assessment: 1. 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 Macrocytosis without anemia Trend CBC Vitamin B12 within normal limits 3. Peripheral neuropathy initiate patient on Neurontin 100 mg 3 times a day 4.Acute kidney injury Slow IV hydration Trend BUN and creatinine 5. Malnutrtion Ensure with all meals Nutrition consult 6. Tobacco smoking daily Counseled to quit smoking DVT prophylaxis mechanical Full code
--- NOTE | 2022-06-28 16:24 | P.CNOR ---
History of Present Illness - [facility] Consult date: 06/28/22 Consult reason: neck pain History of present illness: 71 yo male presented with complex multisystem issues. He has sustained several falls lately and has been weak in his UE and LE. He states neck pain as well t hat has been going on for some time. Pt uses a walker at baseline and has over the past 4 years. He states he gradually just became more weak and more unbalanced. He denies any acute progressive symptoms other than his neck pain and some UE and LE paresthesias of which [facility] as he thought it may have been related to agent orange exposure. He had never had his neck or spine imaged however till now. He states no bowel or bladder issues. States no perineal numbness/tingling at this time. Denies any f/c/sob/cp currently. Review of Systems 16 pt ROS completed as stated in HPI. All other systems reviewed as negative. All systems: negative Constitutional: Reports as per HPI Past Medical History Past Medical History: No Reported History Additional Past Medical History / Comment(s): recently went to neurologist and had syncopal episode. pt states he has been numb all over, neck pain, and weakness and unable to walk. states started years ago but recently went to doctor. possible exposure to agent orange History of Any Multi-Drug Resistant Organisms: None Reported Past Surgical History: No Surgical Hx Reported Past Psychological History: No Psychological Hx Reported Smoking Status: Current every day smoker Past Alcohol Use History: None Reported, Daily Past Drug Use History: None Reported - Past Family History family Additional Family Medical History / Comment(s): no reported CAD, OR CANCER Medications and Allergies Home Medications Medication Instructions Recorded Confirmed Type Ibuprofen [Motrin Ib] 600 mg PO BID 06/26/22 06/26/22 History Allergies Allergy/AdvReac Type Severity Reaction Status Date / Time No Known Allergies Allergy Verified 06/26/22 20:35 Physical Examination Osteopathic Statement: *. No significant issues noted on an osteopathic structural exam other than those noted in the History and Physical/Consult. AOX3 NAD at this time in bed, answers questions appropriately, appears unkempt and cachexic VSS, afeb Mild TTP about the C and T spine paraspinal no midline TTP ROM of C spine is with mild pain and is relatively normal, decreased chin to chest and rotation slightly 4-/5 UE all major muscle groups with muscle wasting b/l UE and hands and forearms noted 4-/5 LE all major muscle groups with again muscle wasting 3+/4 DTR all, hyperreflexia present in UE and LE b/l, equal +hernández's b/l +clonus 10 beats b/l LE Neg babinski b/l SILT C5-T1 and L2-S1 with slight decrease over the C5-6 b/l UE 2/4 distal pulses all Compartments softand compressive CN II-XII grossly intact Results MRI of the Brain and C spine as well as CT of C spine reviewed. MRI shows severe stenosis of the cervical spine from C3-7 with myelomalacia and demyelnation of the cord with signal change at C3=4 and 5-7. This could be rela korey to the stenosis with SAC only 6 mm at C3-4, however due to findings in the brain could also be related to demyelinating disease. There is anterior listhesis of C3-4 noted as well as C7-T1 due to degeneration. There is spondylosis through the C spine as well that is evident on MRI and CT scan. No acute fractures noted at this time. No other lesions noted. - Labs Labs: Abnormal Lab Results - Last 24 Hours (Table) 06/27/22 06/27/22 06/28/22 Range/Units 14:58 14:58 06:25 RBC 3.15 L 3.22 L (4.30-5.90) m/uL Hgb 11.0 L 10.9 L (13.0-17.5) gm/dL Hct 32.8 L 33.8 L (39.0-53.0) % MCV 103.9 H 105.0 H (80.0-100.0) fL MCH 33.9 H (27.0-32.0) pg Chloride 109 H (98-107) mmol/L Anion Gap (10.00-18.00) mmol/L BUN 22 H (9-20) mg/dL Glucose 118 H (74-99) mg/dL Total Bilirubin (0.30-1.20) mg/dL Total Protein 5.9 L (6.3-8.2) g/dL Albumin (3.8-4.9) g/dL 06/28/22 Range/Units 06:25 RBC (4.30-5.90) m/uL Hgb (13.0-17.5) gm/dL Hct (39.0-53.0) % MCV (80.0-100.0) fL MCH (27.0-32.0) pg Chloride 112 H (98-107) mmol/L Anion Gap 8.60 L (10.00-18.00) mmol/L BUN (9-20) mg/dL Glucose (74-99) mg/dL Total Bilirubin <0.15 L (0.30-1.20) mg/dL Total Protein 5.5 L (6.3-8.2) g/dL Albumin 3.4 L (3.8-4.9) g/dL H & H 06/26/22 06/27/22 06/28/22 Range/Units 16:24 14:58 06:25 Hgb 13.7 11.0 L 10.9 L (13.0-17.5) gm/dL Hct 41.8 32.8 L 33.8 L (39.0-53.0) % Coagulation 06/26/22 Range/Units 16:24 INR 0.9 (<1.2) Result Diagrams: 06/28/22 06:25 06/28/22 06:25 Assessment and Plan Assessment: 71 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 There are areas of severe stenosis within his neck that are causing bruising to his spinal cord which explain some of his UE and LE symptoms. He also has lesions in his brain concerning for demyelinating disease which could be con tributing to the overall myelopathic picture of this patient. On top of this, the patient is undernourished and likely has multiple medical comorbid conditions, however he has not been to a physician in a long time. We discussed different options for treatment. From the spine standpoint, he has severe stenosis in his neck and would require surgery to decompress and stabiliize his neck which would allow this area to potentially heal and him to regain strength and function of his UE and LE. I also spoke with neurology who would like to work up with an LP which is reasonable given his imaging findings. The patient expressed that he would like to think about surgery at this time. While his myelopathy is urgent, there are no emergent signs at this time and he could have surgery in a few days if he desired and is cleared for surgery. -We will continue to follow
[2022-06-28] MEDS: HEPARIN SODIUM,PORCINE/PF 5,000 UNIT/0.5 ML SYRINGE SQ SCH (23:26)
[2022-06-28] MEDS: SODIUM CHLORIDE 0.9% 1,000 ML IV SCH ×2 (23:27→23:30)
[2022-06-29] MEDS: HEPARIN SODIUM,PORCINE/PF 5,000 UNIT/0.5 ML SYRINGE SQ SCH ×2 (08:35→20:39)
[2022-06-29] MEDS: GABAPENTIN 100 MG CAP PO SCH ×3 (08:36→23:18)
[2022-06-29] MEDS: PANTOPRAZOLE 40 MG TABLET PO SCH (08:36)
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
--- NOTE | 2022-06-29 09:28 | P.PN ---
Subjective Progress Note Date: 06/29/22 Principal diagnosis: Syncope The patient is a 49-year-old female patient who is known to her service from before was seen recently for mildly abnormal troponin which was felt to be not reactive to acute coronary syndrome. She does have an extensive cardiac history consistent of history of smoking and history of excessive alcohol use and history of drug abuse and also hepatitis C. She was admitted to the hospital this time was change in mental status. We consulted to see her this time because of cardiac arrhythmia mainly in the term of PVC. The patient is asymptomatic from the cardiovascular standpoint and reported no heart racing or fluttering and no palpitation no symptoms of chest pain or chest discomfort but these note that the patient overall is very poor historian. During her last hospital admission she underwent a workup including an echo which revealed no rmal left ventricle systolic function with mild valvular abnormalities. During this admission she seems to be hemodynamically stable. I'm going to obtain a BNP and also magnesium level. No need to repeat the echocardiogram in the light of recent echocardiogram. As an outpatient she needs to have a Holter monitor to assess the frequency of her PVC and further investigation/workup needed if the frequency is at high level. In the light of being asymptomatic from the PVC standpoint of view I would advise a conservative medical approach. We'll follow-up with the patient after the blood work was performed including a magnesium level June [id number] The patient was seen this morning. He remains asymptomatic. He did have an episode of sinus pause of less than 30 seconds again in the respiratory therapy aide. He remains hemodynamically stable as well. He underwent an echo which revealed normal left ventricular systolic function was no significant valvular abnormalities. We don't know the plan regarding the neck pain and if the plan to treat that surgically or conservatively at this point. From a cardiac standpoint of view, the patient seems to be stable. We will continue monitor his rhythm. Avoid any AV bartolo serafin agents. He might benefit from an event monitor as an outpatient. Objective - Vital Signs Vital signs: Vital Signs Temp 97.7 F 06/29/22 08:24 Pulse 68 06/29/22 08:24 Resp 17 06/29/22 08:24 BP 108/81 06/29/22 08:24 Pulse Ox 98 06/29/22 08:24 FiO2 Intake & Output 06/28/22 06/29/22 06/29/22 18:59 06:59 18:59 Output Total 200 750 Balance -200 -750 Weight 56.699 kg Output: Urine 200 750 Other: Voiding Method Urinal Urinal # Voids 1 # Bowel Movements 1 - Constitutional General appearance: Present: no acute distress - Respiratory Respiratory: bilateral: diminished - Cardiovascular Rhythm: regular Heart sounds: normal: S1, S2 Abnormal Heart Sounds: Present: systolic murmur - Labs CBC & Chem 7: 06/28/22 06:25 06/28/22 06:25 Assessment and Plan Assessment: Assessment #1 intermittent episodes of syncope not associated with any warning symptoms and both where in the sitting position #2 cardiac arrhythmia into of sinus pauses with the longest of 2.5 seconds mostly during the night #3 degenerative changes in the cervical spine #4 bilateral upper and lower extent his numbness secondary to #3 Plan #1 episodes of syncope are concerning to be of cardiac etiology/cardiac syncope giving that both have been in sitting position and with no warning symptoms #2 continue monitor the patient on telemetry. So far he did not have any episodes of sinus pauses longest then 3 seconds #3 thyroid disease was ruled out. TSH came in to be unremarkable #4 avoid any AV bartolo serafin agents #5 event monitor as an outpatient.
[2022-06-29] MEDS: DEXAMETHASONE SOD PHOSPHATE 4 MG/ML 1 ML VIAL IVP SCH ×3 (09:34→19:26)
[2022-06-29 11:25] LABS: Basophils # (A) 0.08 X 10*3/uL (0.00-0.10); Basophils % (A) 1.5 %; Eosinophils % (A) 5.5 %; HCT 31.4 % (39.6-50.0); HGB 10.5 g/dL (13.0-17.0); Immature Grans, Automated 0.2 %; Lymphocytes # (A) 1.93 X 10*3/uL (0.90-5.00); Lymphocytes % (A) 35.3 %; MCH 34.5 pg (27.0-32.0); MCHC 33.4 g/dL (32.0-37.0); MCV 103.3 fL (80.0-97.0); Mean Platelet Volume 10.7 fL (9.5-12.2); Monocytes # (A) 0.82 X 10*3/uL (0.20-1.00); NRBC Per 100 WBC 0 /100 WBCS (0.0-0.0); Neutrophils # (A) 2.32 X 10*3/uL (1.80-7.70); Neutrophils % (A) 42.5 %; Platelet Count 244 X 10*3/uL (140-440); RBC 3.04 X 10*6/uL (4.40-5.60); WBC 5.46 X 10*3/uL (4.50-10.00)
[2022-06-29 11:36] LABS: African American GFR (CKD) 78.5 (60.0-200.0); Anion Gap 8.9 mmol/L (10.00-18.00); BUN/Creat Ratio 21.85 Ratio (12.00-20.00); Blood Urea Nitrogen 23.6 mg/dL (9.0-27.0); Calcium 8.9 mg/dL (8.7-10.3); Carbon Dioxide 24.7 mmol/L (20.0-27.5); Magnesium 2.1 mg/dL (1.5-2.4); Non-African American GFR(CKD) 67.7 (60.0-200.0); Phosphorus 3.5 mg/dL (2.4-5.1); Potassium 4.2 mmol/L (3.5-5.5)
--- NOTE | 2022-06-29 12:48 | P.PN ---
Subjective Progress Note Date: 06/29/22 Principal diagnosis: 1. 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 UE weakness with paresthesias and hyperreflexia 3. LE weakness with paresthesias and hyperreflexia Patient was seen at bedside this morning lying in the semirecumbent position. Patient says he is still unable to walk. Patient has thought about surgery and still unsure whether he wants to proceed with cervical spine surgery at this time. Patient denies chest pain, fever, shortness breath, nausea, vomiting, change in vision, loss of bowel/bladder control. Objective - Vital Signs Vital signs: Vital Signs Temp 97.7 F 06/29/22 08:24 Pulse 68 06/29/22 08:24 Resp 17 06/29/22 08:24 BP 108/81 06/29/22 08:24 Pulse Ox 98 06/29/22 08:24 FiO2 Intake & Output 06/28/22 06/29/22 06/29/22 18:59 06:59 18:59 Output Total 200 750 Balance -200 -750 Weight 56.699 kg Output: Urine 200 750 Other: Voiding Method Urinal Urinal # Voids 1 # Bowel Movements 1 - Exam Negative for any open fractures, significant ecchymosis/erythema, ulcers. Patient is cachectic. Patient does have some tenderness to palpation along the posterior cervical spine. Nontender to palpation throughout rest exam. Patient does have sensation in the bilateral upper and lower extremities. Patient is a bit hyperreflexive on examining both the upper and lower extremities. Patient does have range of motion of the cervical spine, however it is present with some mild pain. Patient does have some limited range of motion in hip flexion/ extension and shoulder forward elevation. Patient has full range of motion and knee flexion/extension dorsi/plantar flexion bilaterally and elbow flexion/extension and wrist flexion/extension. motor exam 4-/5 in UE in all motor groups. 4-/5 in all LE motor groups. Radial pulses intact bilaterally. Cap refill under 3 seconds in his upper extremities digits. Positive Domitila's bilaterally. Positive clonus bilaterally. Negative Homans bilaterally. - Labs CBC & Chem 7: 06/29/22 06:21 06/29/22 06:21 Labs: Abnormal Lab Results - Last 24 Hours (Table) 06/28/22 06/28/22 Range/Units 06:25 06:25 RBC 3.22 L (4.40-5.60) X 10*6/uL Hgb 10.9 L (13.0-17.0) g/dL Hct 33.8 L (39.6-50.0) % MCV 105.0 H (80.0-97.0) fL MCH 33.9 H (27.0-32.0) pg Chloride 112 H (96-109) mmol/L Anion Gap 8.60 L (10.00-18.00) mmol/L Total Bilirubin <0.15 L (0.30-1.20) mg/dL Total Protein 5.5 L (6.2-8.2) g/dL Albumin 3.4 L (3.8-4.9) g/dL Assessment and Plan Assessment: 1. 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 UE weakness with paresthesias and hyperreflexia 3. LE weakness with paresthesias and hyperreflexia Plan: 1. 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 At this time we are recommending continued Decadron. We'll continue follow patient while in hospital. 2. Appreciate medical management 3. Pain management - Tylenol; gabapentin 4. DVT prophylaxis - heparin 5. GI prophylaxis - Protonix 6. Encourage incentive spirometer use 7. PT/OT - weightbearing as tolerated with walker and assistance 8. Appreciate consult Time with Patient: Less than 30
--- NOTE | 2022-06-29 13:12 | P.PN ---
Subjective Progress Note Date: 06/29/22 The patient was seen at bedside, no acute events overnight. Objective - Vital Signs Vital signs: Vital Signs Temp 97.7 F 06/29/22 08:24 Pulse 68 06/29/22 08:24 Resp 17 06/29/22 08:24 BP 108/81 06/29/22 08:24 Pulse Ox 98 06/29/22 08:24 FiO2 Intake & Output 06/28/22 06/29/22 06/29/22 18:59 06:59 18:59 Output Total 200 750 Balance -200 -750 Weight 56.699 kg Output: Urine 200 750 Other: Voiding Method Urinal Urinal Urinal # Voids 1 # Bowel Movements 1 - Exam General: [non toxic], [no distress], [appears at stated age] Derm: [warm], [dry] Head: [atraumatic], [normocephalic], [symmetric] Eyes: [EOMI], [no lid lag], [anicteric sclera] Mouth: [no lip lesion], [mucus membranes moist] Cardiovascular: [S1S2 reg], [no murmur], [positive posterior tibial pulse bilateral], Lungs: [CTA bilateral], [no rhonchi, no rales] , [no accessory muscle use] Abdominal: [soft], [ nontender to palpation], [no guarding], [no appreciable organomegaly] Ext: [4 out of 5 bilateral muscle strength gross muscle atrophy], [no edema], [no contractures] Neuro: [ CN II-XI grossly intact], [no focal neuro deficits] Psych: [Alert], [oriented], [appropriate affect] - Labs CBC & Chem 7: 06/29/22 06:21 06/29/22 06:21 Labs: Abnormal Lab Results - Last 24 Hours (Table) 06/29/22 06/29/22 Range/Units 06:21 06:21 RBC 3.04 L (4.40-5.60) X 10*6/uL Hgb 10.5 L (13.0-17.0) g/dL Hct 31.4 L (39.6-50.0) % MCV 103.3 H (80.0-97.0) fL MCH 34.5 H (27.0-32.0) pg Anion Gap 8.90 L (10.00-18.00) mmol/L BUN/Creatinine Ratio 21.85 H (12.00-20.00) Ratio Assessment and Plan Assessment: Frequent episodes of syncope Cervical spondylotic myelopathy vs demyelinating disease or both Gait instability Neurochecks lumbar xray Fall precautions CT of the brain no acute pathology Echocardiogram showed left ventricular ejection fraction 55% 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 Cervical spine MRI that shows cervical and impingement and demyelinating changes Patient was started on Decadron per orthopedic recs Orthopedic recommended cervical spine surgery and the patient wanted to think about it Neurology on board appreciate recommendations Cardiology on board appreciate recommendations Macrocytosis without anemia Trend CBC Vitamin B12 within normal limits Peripheral neuropathy initiate patient on Neurontin 100 mg 3 times a day Acute kidney injury Slow IV hydration Trend BUN and creatinine Malnutrtion Ensure with all meals Nutrition consult Tobacco smoking daily Counseled to quit smoking DVT prophylaxis mechanical Full code
[2022-06-29] MEDS: ASPIRIN 81 MG PO SCH (15:41)
[2022-06-29] MEDS: SODIUM CHLORIDE 0.9% 1,000 ML IV SCH ×2 (19:26→23:18)
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
[2022-06-30] MEDS: DEXAMETHASONE SOD PHOSPHATE 4 MG/ML 1 ML VIAL IVP SCH ×4 (00:26→17:45)
[2022-06-30] MEDS: HEPARIN SODIUM,PORCINE/PF 5,000 UNIT/0.5 ML SYRINGE SQ SCH (07:28)
[2022-06-30] MEDS: ASPIRIN 81 MG PO SCH (08:53)
[2022-06-30] MEDS: GABAPENTIN 100 MG CAP PO SCH ×3 (08:56→20:47)
[2022-06-30] MEDS: PANTOPRAZOLE 40 MG TABLET PO SCH (08:56)
[2022-06-30 09:41] LABS: Lyme IgG/IgM 0.12 Index
--- NOTE | 2022-06-30 09:41 | P.PN ---
Subjective Progress Note Date: 06/30/22 Principal diagnosis: Neck Pain Patient seen and examined at bedside. Patient is currently resting in bed. Patient reports that his pain is managed on current regimen. Discussed surgical options with patient, he states he would like to proceed with surgical intervention at this time. Surgery is scheduled for Thursday pending medical clearance. Patient is requesting his phone from his bags that were placed in quarantine. assignment desk editor was notified. Patient denies any changes regarding neck pain and bilateral upper extremity weakness. Patient denies any fevers/chills, shortness of breath, or chest pain. Objective - Vital Signs Vital signs: Vital Signs Temp 98.3 F 06/30/22 01:55 Pulse 67 06/30/22 01:55 Resp 15 06/30/22 01:55 BP 117/72 06/30/22 01:55 Pulse Ox 97 06/30/22 01:55 FiO2 Intake & Output 06/29/22 06/30/22 06/30/22 18:59 06:59 18:59 Output Total 500 Balance -500 Output: Urine 500 Other: Voiding Method Urinal Urinal # Voids 3 - Exam Physical Examination General: The patient is awake and alert, in no acute distress Skin: Skin is warm and dry with no obvious rashes or lesions. Hairy patches absent, no dorsal skin dimples, no cafe au lait spots, and no surgical incisions. Eye: Pupils are equal, round and reactive to light, extra-ocular movements are intact; there is normal conjunctiva bilaterally. Neck: The neck is supple, there is no tenderness and ROM intact. Cardiovascular: There is a regular rate and rhythm. No murmur, rub or gallop is appreciated. Respiratory: Lungs are clear to auscultation, respirations are non-labored, breath sounds are equal. Gastrointestinal: Soft, non-distended, non-tender abdomen . Back: There is no tenderness to palpation in the midline, paralumbar, parathoracic or buttocks region. There is no obvious deformity . Musculoskeletal: ROM limited secondary to pain. Shoulder abduction 4-/5, elbow flexors 4-/5, wrist dorsiflexors 4-/5. finger abductor 4-/5, agency manager 4-/5, hip flexor 4-/5, knee flexor 4-/5, ankle dorsiflexor 4-/5, ankle plantarflexion 4-/5 and extensor hallucis 4-/5. Neurological: CN 2-12 intact. Patient is hyperflexic in bilateral upper extremities. Movement and coordination equal and intact. Sensory exam to light touch intact C5-T1 and intact from L2-S1. Reflexes 2/4 in bilateral upper and lower extremities. Negative Hoffmans, babinski, and clonus signs. Psychiatric: Cooperative, appropriate mood & affect, normal judgment. - Labs CBC & Chem 7: 06/29/22 06:21 06/29/22 06:21 Labs: Abnormal Lab Results - Last 24 Hours (Table) 06/29/22 06/29/22 Range/Units 06:21 06:21 RBC 3.04 L (4.40-5.60) X 10*6/uL Hgb 10.5 L (13.0-17.0) g/dL Hct 31.4 L (39.6-50.0) % MCV 103.3 H (80.0-97.0) fL MCH 34.5 H (27.0-32.0) pg Anion Gap 8.90 L (10.00-18.00) mmol/L BUN/Creatinine Ratio 21.85 H (12.00-20.00) Ratio Assessment and Plan Assessment: Assessment: 1. 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 UE weakness with paresthesias and hyperreflexia 3. LE weakness with paresthesias and hyperreflexia Plan: Plan: 1. 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 This has been scheduled for Thursday pending medical clearance. 2. Appreciate medical management 3. Pain management - Tylenol; gabapentin 4. DVT prophylaxis - heparin 5. GI prophylaxis - Protonix 6. Encourage incentive spirometer use 7. PT/OT - weightbearing as tolerated with walker and assistance 8. Appreciate consult *I reviewed and discussed this case with my attending Dr. Odonnell, whom has reviewed this chart and films and is in agreement with assessment and plan of care as outlined above. I have personally seen and examined the patient, performed the documentation and the assessment and plan as written. Number of minutes spent on the visit: 20m.
--- NOTE | 2022-06-30 10:12 | P.PN ---
Subjective Progress Note Date: 06/30/22 HISTORY OF PRESENT ILLNESS: The patient is a 49-year-old female patient who is known to her service from before was seen recently for mildly abnormal troponin which was felt to be not reactive to acute coronary syndrome. She does have an extensive cardiac history consistent of history of smoking and history of excessive alcohol use and history of drug abuse and also hepatitis C. She was admitted to the hospital this time was change in mental status. We consulted to see her this time because of cardiac arrhythmia mainly in the term of PVC. The patient is asymptomatic from the cardiovascular standpoint and reported no heart racing or fluttering and no palpitation no symptoms of chest pain or chest discomfort but these note that the patient overall is very poor historian. During her last hospital admission she underwent a workup including an echo which revealed kalpesh l left ventricle systolic function with mild valvular abnormalities. During this admission she seems to be hemodynamically stable. I'm going to obtain a BNP and also magnesium level. No need to repeat the echocardiogram in the light of recent echocardiogram. As an outpatient she needs to have a Holter monitor to assess the frequency of her PVC and further investigation/workup needed if the frequency is at high level. In the light of being asymptomatic from the PVC standpoint of view I would advise a conservative medical approach. We'll follow-up with the patient after the blood work was performed including a magnesium level June [id number] The patient was seen this morning. He remains asymptomatic. He did have an episode of sinus pause of less than 30 seconds again in the candy maker. He remains hemodynamically stable as well. He underwent an echo which revealed normal left ventricular systolic function was no significant valvular abnormalities. We don't know the plan regarding the neck pain and if the plan to treat that surgically or conservatively at this point. From a cardiac standpoint of view, the patient seems to be stable. We will continue monitor his rhythm. Avoid any AV bartolo serafin agents. He might benefit from an event monitor as an outpatient. 06/30/2022 Patient examined this morning. He is sitting up in the chair. He denies chest pain or pressure. He denies dizziness or lightheadedness. No further episodes of syncope. Telemetry reveals sinus mechanism with a heart rate around 100. Blood pressure stable. Echo reveals EF 50-50%. PHYSICAL EXAM: VITAL SIGNS: Reviewed. GENERAL: Well-developed in no acute distress. NECK: Supple. No JVD or thyromegaly LUNGS: Respirations even and unlabored. Lungs essentially clear to auscultation bilaterally. HEART: Regular rate and rhythm. S1 and S2 heard. + systolic murmur. EXTREMITIES: Normal range of motion. No clubbing or cyanosis. Peripheral pulses intact. 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 Will consider event monitor at follow up visit We will sign off. Please reconsult if needed. Nurse practitioner note has been reviewed by physician. Signing provider agrees with the documented findings, assessment, and plan of care. Objective - Vital Signs Vital signs: Vital Signs Temp 98.6 F 06/30/22 07:52 Pulse 81 06/30/22 07:52 Resp 17 06/30/22 07:52 BP 127/81 06/30/22 07:52 Pulse Ox 95 06/30/22 07:52 FiO2 Intake & Output 06/29/22 06/30/22 06/30/22 18:59 06:59 18:59 Output Total 500 Balance -500 Output: Urine 500 Other: Voiding Method Urinal Urinal # Voids 3 - Labs CBC & Chem 7: 06/29/22 06:21 06/29/22 06:21 Labs: Abnormal Lab Results - Last 24 Hours (Table) 06/29/22 06/29/22 Range/Units 06:21 06:21 RBC 3.04 L (4.40-5.60) X 10*6/uL Hgb 10.5 L (13.0-17.0) g/dL Hct 31.4 L (39.6-50.0) % MCV 103.3 H (80.0-97.0) fL MCH 34.5 H (27.0-32.0) pg Anion Gap 8.90 L (10.00-18.00) mmol/L BUN/Creatinine Ratio 21.85 H (12.00-20.00) Ratio
[2022-06-30] MEDS: SODIUM CHLORIDE 0.9% 1,000 ML IV SCH (11:50)
--- NOTE | 2022-06-30 15:13 | P.PN ---
Subjective Progress Note Date: 06/30/22 I am seeing the patient for the first time during this hospital visit. He presented to our office because of a syncopal episode at neurologist office. He was seeing neurologist as outpatient for peripheral neuropathy. He stated he has numbness from the neck all the way down to tip toes for years and has progressively worsened. During this hospital visit there is concern for demylinating disease. Please refer to Dr. Altamirano's. Objective - Vital Signs Vital signs: Vital Signs Temp 97.5 F L 06/30/22 11:00 Pulse 77 06/30/22 11:00 Resp 18 06/30/22 11:00 BP 122/88 06/30/22 11:00 Pulse Ox 95 06/30/22 11:00 FiO2 Intake & Output 06/29/22 06/30/22 06/30/22 18:59 06:59 18:59 Output Total 500 Balance -500 Output: Urine 500 Other: Voiding Method Urinal Urinal # Voids 3 - Exam GENERAL: The patient is lying in bed and is not in acute distress. NEUROLOGICAL: Higher mental function: The patient is awake, alert, oriented to self, place and time. Patient is following commands. No aphasia and no neglect. Cranial nerves: The pupils are round, equal and reactive to light. Visual cho are full to confrontation throughout. Extraocular movement is intact no nystagmus is noted. Facial sensation is normal to touch throughout. The facial strength is normal throughout. Tongue is midline and moved [id number] without any difficulty. No dysarthria is noted. Shoulder shrug is normal bilaterally. Motor: The strength is 5 over 5 throughout. Normal tone and bulk. Sensation: Sensation is normal to touch throughout. Reflexes (right/left): Biceps2+/3+; triceps 2+/3+; brachioradialis 2+; patellar3+; ankles2+. SOME OF THE WORK-UP DURING THIS HOSPITAL VISIT CONSISTED OF: * * MRI of the brain revealed extensive coalescent increased signal in the periventricular white matter in both cerebral hemispheres. This could be demyelinating disease or microvascular ischemia. Effusion weighted images show increased signal in multiple foci in the right cerebral hemisphere centrum semiovale and also in the left thalamus that could be acute infarcts or acute edema limiting disease. On my review, agree there is abnormal brain MRI, revealed 4 different areas of abnormal signal on diffusion weighted images, however negative on ADC mapping. Differential includes subacute stroke versus demyelination. All these 4 areas of abnormal signal on DWI had significant FLAIR abnormality, therefore could be T2 shine through. MRI also reveals significant white matter disease in the periventricular and subcortical white matter region particularly around the occipital horns bilaterally, raising possibility of multiple sclerosis. * MRI cervical spine revealed spondylotic changes in the cervical spine. Large area of abnormal signal within the cervical cord at the C4 5 level could be infarct or demyelinating disease. No cord mask. Mild left-sided C6 7 neural foraminal impingement. Posterior C6 7 disc herniation without significant spinal stenosis. There is mild relative spinal stenosis at C3 4. Canal measures 6 mm. I personally reviewed MRI, agree with the findings. The abnormal signal in the spinal cord is at the level of moderate spinal stenosis at C4 5 level. There is some spondylolisthesis at this level. * EEG was reported as normal. * Carotid Doppler revealed atheromatous plaquing bilaterally, greater on the right. Moderate narrowing between 50 and 69% proximal right ICA. Mild narrowing approaching 50% within the proximal left ICA. * 2-D echo was technically difficult study. Normal left ventricular dimension and systolic function. Poorly visualized intracardiac valves. * B12 is 722, TSH normal 1.27, vitamin D 50. Ammonia <9. Folate 17.80, hemoglobin A1c 5.1. * Lyme titers are negative. - Labs CBC & Chem 7: 06/29/22 06:21 06/29/22 06:21 Assessment and Plan Assessment: * Syncopal spell 3, unclear etiology. All of them occurred in sitting position, therefore need to rule out arrhythmia, seizure, versus orthostasis. Routine EEG is normal. * Abnormal brain MRI, revealed 4 different areas of abnormal signal on diffusion weighted images, however negative on ADC mapping. Differential includes subacute stroke versus ALUMINUM WELDER demyelination. All these 4 areas of abnormal sig nal on DWI had significant FLAIR abnormality, therefore could be T2 shine through. MRI also reveals significant white matter disease in the periventricular and subcortical white matter region particularly around the occipital horns bilaterally, raising possibility of multiple sclerosis. * Abnormal MRI cervical spine, with evidence of spondylolisthesis, myelomalacia at C4 5 level. Rule out demyletinating disease. * Gait dysfunction, generalized weakness, with spasticity, ataxia. Most likely related to cervical myelopathy. Rule out demyelinating disease like MS. * Ataxia involving the left upper extremity and bilateral lower limbs. Probably due to cervical myelopathy. * Tobacco use * Reported exposure to agent orange in 1968. Plan: * Dr. Altamirano recommended: MRI brain with contrast to evaluate for enhancement in the lesions, which will be suggestive of demyelination rather than subacute CVA and pending Lumbar puncture to rule out MS. In addition, I also added MRI C-spine w/ to rule out any lesion enhancement. * Orthopedics spine input appreciated. They are considering cervical intervention but recommend to hold off until further imaging is complete to rule out Demylinating disease. * Aspirin 81 mg daily. * Will defer the rest of medical management to the primary team. * Upon discharge, patient to follow-up with neurologist as outpatient within 1-2 weeks. The plan is discussed with the patient and primary team. Time with Patient: Less than 30
--- NOTE | 2022-06-30 17:02 | MR ---
EXAMINATION TYPE: MR cervical spine w con DATE OF EXAM: 06/30/2022 COMPARISON: 06/27/2022 HISTORY: Weakness, ataxia, abnormal MRI. CONTRAST: Performed utilizing 5.5 mL intravenous Gadavist gadolinium contrast. TECHNIQUE: Multiplanar multiecho imaging on a 3.0 Jaylene magnet is performed through the cervical spin e. Postcontrast axial and sagittal plane imaging was performed. This is compared to 06/27/2022 cervica l spine. FINDINGS: There is some hypointense signal change through the cervical spinal cord posterior to the C4-5 disc l evel corresponding to the abnormality identified on the prior exam. This area does not enhance. No enhancement is evident through the serpiginous spinal cord. Appears to be some cord compression fr om a left paracentral disc herniation at the C4-5 level. Spinal canal stenosis is present. There is d isc uncovering at the C4-5 level with a grade 1 spondylolisthesis. IMPRESSIONS: 1. Left paracentral focal disc herniation with moderate anterior thecal sac impression. This has cord compression and deformity. Spinal canal stenosis is present. Subtle signal change is present within the spinal cord at this level without enhancement.
--- NOTE | 2022-06-30 17:24 | MR ---
EXAMINATION TYPE: MR brain w con DATE OF EXAM: 06/30/2022 COMPARISON: 06/27/2022 HISTORY: Weakness, ataxia, abnormal MRI. CONTRAST: Standard multiplanar, multisequence MRI departmental protocol images were obtained without contrast a nd with 5.5 mL intravenous Gadavist gadolinium contrast. There is extensive coalescent increased signal on the FLAIR images in the periventricular white matte r that measures up to 1.5 cm in thickness. There is no midline shift. No mass effect. No sign of intr acranial hemorrhage. Precontrast images show no pathologic enhancement. There is normal enhancement o f the venous sinuses. There is 1 cm focus of increased signal in the posterior left thalamus on the F LAIR images. There is a 1.5 cm irregular area of increased signal in the left occipital lobe consistent with an in farct. No evidence of orbital mass. Sella turcica appears intact. Corpus callosum is intact. There is some c erebral cortical atrophy. IMPRESSION: Extensive white matter signal changes around the ventricles and noel-white matter junction that is li rubén microvascular ischemia. Demyelinating disease not excluded. No significant change compared to re cent exam. No evidence of a new infarct. 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
--- NOTE | 2022-06-30 18:00 | P.PN ---
Subjective Progress Note Date: 06/30/22 (delayed charting seen at 1015) Patient is a 71-year-old male with BPH who presented with gait instability. Patient seen and examined at bedside. He is very concerned about new medical diagnoses has not followed up with physicians in the past. He states he is having some response to the Neurontin. He denies any chest pain or shortness of breath. Discussed his cardiac results as well as the indications for LP prior to surgery. General: nontoxic, no distress, appears at stated age Derm: warm, dry Head: atraumatic, normocephalic, symmetric Eyes: EOMI, no lid lag, anicteric sclera Mouth: no lip lesion, mucus membranes moist Cardiovascular: S1S2 reg, no murmur, positive posterior tibial pulse bilateral, Lungs: CTA bilateral, no rhonchi, no rales , no accessory muscle use Abdominal: soft, nontender to palpation, no guarding, no appreciable organomegaly Ext: no gross muscle atrophy, no edema, no contractures Neuro: CN II-XI grossly intact, + intrinsic hand muscle wasting, no tremors Psych: Alert, oriented, appropriate affect Assessment/plan: Cervical myelopathy with spinal stenosis at C5 6 Abnormal MRI brain Ataxia Syncopal episode 3 -Case discussed with Dr. Daniels he would like an LP completed, will await repeat MRI brain with contrast to rule out any disease. ASA daily - surgical intervention on 07/[address] pardo -Pain control -Gabapentin -PT/OT 9-continue with Decadron Macrocytic anemia -RBC folate 817 -Vitamin B12 722 -TSH 1.27 -Follow CBC Syncope wtih sinus pausas - cardio recs outpatient follow-up avoid AV bartolo blocking agents Acute kidney injury, resolved Hyponatremia, resolved Metabolic acidosis, resolved DVT prophylaxis: SCDs, heparin on hold for possible lumbar puncture Discussed with: Patient, nursing Anticipated discharge: pending clinical course Anticipated discharge place: pending clinical course A total of 35 minutes was spent on the care of this complex patient more than 50% of the time was spent in counseling and care coordination. Objective - Vital Signs Vital signs: Vital Signs Temp 97.5 F L 06/30/22 11:00 Pulse 77 06/30/22 11:00 Resp 18 06/30/22 11:00 BP 122/88 06/30/22 11:00 Pulse Ox 95 06/30/22 11:00 FiO2 Intake & Output 06/29/22 06/30/22 06/30/22 18:59 06:59 18:59 Output Total 500 200 Balance -500 -200 Output: Urine 500 200 Other: Voiding Method Urinal Urinal # Voids 3 # Bowel Movements 1 - Labs CBC & Chem 7: 06/29/22 06:21 06/29/22 06:21 Labs: Abnormal Lab Results - Last 24 Hours (Table) 06/26/22 Range/Units 20:09 RBC Folate 817 H (280 - 791) ng/mL
[2022-07-01] MEDS: SODIUM CHLORIDE 0.9% 1,000 ML IV SCH ×2 (00:30→13:19)
[2022-07-01] MEDS: DEXAMETHASONE SOD PHOSPHATE 4 MG/ML 1 ML VIAL IVP SCH ×5 (00:31→23:32)
[2022-07-01] MEDS: PANTOPRAZOLE 40 MG TABLET PO SCH (07:01)
[2022-07-01] MEDS: GABAPENTIN 100 MG CAP PO SCH ×3 (07:01→21:06)
--- NOTE | 2022-07-01 07:07 | P.PN ---
Progress Note - Text Progress Note Date: 07/01/22 Plan for OR with ortho spine for 07/04/22 in the afternoon. Brain MRI shows white matter changes, appreciate neuro input. Pt still has severe stenosis in cervical spine on MRI causing myelomalacia which is a contributing factor to his current state. Would decompress and fuse posteriorly for pt to give greatest chance for recovery from spine standpoint. Demyelinating disease poses compounding factors to pts condition but mechanical compression can be fixed with surgery. Depending on pts wishes and treatment team input will plan for surgery on C spine Thursday.
--- NOTE | 2022-07-01 08:16 | P.PN ---
Subjective Progress Note Date: 07/01/22 Principal diagnosis: Neck Pain Patient seen and examined at bedside. Patient is currently resting in bed. Patient reports that his pain is managed on current regimen. He is still wanting to proceed with surgical intervention at this time. Informed patient that the procedure is plnned for Thursday pending clearance. Patient denies any changes regarding neck pain and bilateral upper extremity weakness. Patient denies any fevers/chills, shortness of breath, or chest pain. Objective - Vital Signs Vital signs: Vital Signs Temp 97.9 F 07/01/22 08:01 Pulse 75 07/01/22 08:01 Resp 18 07/01/22 08:01 BP 146/66 07/01/22 08:01 Pulse Ox 96 07/01/22 08:01 FiO2 Intake & Output 06/30/22 07/01/22 07/01/22 18:59 06:59 18:59 Output Total 200 400 Balance -200 -400 Output: Urine 200 400 Other: Voiding Method Urinal # Bowel Movements 1 - Exam Physical Examination General: The patient is awake and alert, in no acute distress Skin: Skin is warm and dry with no obvious rashes or lesions. Hairy patches absent, no dorsal skin dimples, no cafe au lait spots, and no surgical incisions. Eye: Pupils are equal, round and reactive to light, extra-ocular movements are intact; there is normal conjunctiva bilaterally. Neck: The neck is supple, there is no tenderness and ROM intact. Cardiovascular: There is a regular rate and rhythm. No murmur, rub or gallop is appreciated. Respiratory: Lungs are clear to auscultation, respirations are non-labored, breath sounds are equal. Gastrointestinal: Soft, non-distended, non-tender abdomen . Back: There is no tenderness to palpation in the midline, paralumbar, parathoracic or buttocks region. There is no obvious deformity . Musculoskeletal: ROM limited secondary to pain. Shoulder abduction 4-/5, elbow flexors 4-/5, wrist dorsiflexors 4-/5. finger abductor 4-/5, credit verification clerk 4-/5, hip flexor 4-/5, knee flexor 4-/5, ankle dorsiflexor 4-/5, ankle plantarflexion 4-/5 and extensor hallucis 4-/5. Neurological: CN 2-12 intact. Patient is hyperflexic in bilateral upper extremities. Movement and coordination equal and intact. Sensory exam to light touch intact C5-T1 and intact from L2-S1. Reflexes 2/4 in bilateral upper and lower extremities. Negative Hoffmans, babinski, and clonus signs. Psychiatric: Cooperative, appropriate mood & affect, normal judgment. - Labs CBC & Chem 7: 06/29/22 06:21 06/29/22 06:21 Labs: Abnormal Lab Results - Last 24 Hours (Table) 06/26/22 Range/Units 20:09 RBC Folate 817 H (280 - 791) ng/mL Assessment and Plan Assessment: Assessment: 1. 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 UE weakness with paresthesias and hyperreflexia 3. LE weakness with paresthesias and hyperreflexia Plan: Plan: 1. 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 This has been scheduled for Thursday pending medical clearance. 2. Appreciate medical management 3. Pain management - Tylenol; gabapentin 4. DVT prophylaxis - heparin 5. GI prophylaxis - Protonix 6. Encourage incentive spirometer use 7. PT/OT - weightbearing as tolerated with walker and assistance 8. Appreciate consult *I reviewed and discussed this case with my attending Dr. Odonnell, whom has reviewed this chart and films and is in agreement with assessment and plan of care as outlined above. I have personally seen and examined the patient, performed the documentation and the assessment and plan as written. Number of minutes spent on the visit: 20m.
[2022-07-01] MEDS ORDERED: LACTATED RINGERS 1,000 ML IV ONE ×2 (10:48)
[2022-07-01] MEDS ORDERED: MIDAZOLAM 2 MG/2 ML VIAL ONE (11:01)
--- NOTE | 2022-07-01 11:24 | P.PCN ---
Date of Procedure: 07/01/22 Description of Procedure: Procedure: Lumbar Puncture . Preoperative Diagnoses: Confusion, rule out demyelinating disease Postoperative Diagnosis: Pain Anesthesia: IV sedation with Versed and local Condition: stable. Complications: none. Description of the procedure: Patient was consented in the preoperative area we discussed the risks benefits and alternatives to the procedure. The patient was Brought the patient into the procedure room and she was placed in the left lateral decubitus position. The back was cleansed with iodine 3. The L2-L3 level was palpated . At that point lidocaine 1% was used to anesthetize the skin, total of 5 mL was used. A 22 gauge spinal needle was advanced until spinal fluid was aspirated through the needle and a three - way stop cock. Opening pressure was 9, closing pressure was 9. CSF was obtained and sent off to laboratory for examination. CSF was clear. Band-Aid was placed after the procedure the patient was instructed to lay flat for the next few hours. The patient was discharged from the PACU in stable condition.
--- NOTE | 2022-07-01 13:22 | P.PN ---
Subjective Progress Note Date: 07/01/22 The patient is seen at bedside and feels about the same. Denies any new neurological issues. Objective - Vital Signs Vital signs: Vital Signs Temp 98.0 F 07/01/22 12:00 Pulse 76 07/01/22 12:00 Resp 16 07/01/22 12:00 BP 133/79 07/01/22 12:00 Pulse Ox 96 07/01/22 10:41 FiO2 Intake & Output 06/30/22 07/01/22 07/01/22 18:59 06:59 18:59 Intake Total 50 Output Total 200 400 Balance -200 -400 50 Intake: IV 50 Output: Urine 200 400 Other: Voiding Method Urinal Urinal # Bowel Movements 1 - Exam GENERAL: The patient is lying in bed and is not in acute distress. NEUROLOGICAL: Higher mental function: The patient is awake, alert, oriented to self, place and time. Patient is following commands. No aphasia and no neglect. Cranial nerves: The pupils are round, equal and reactive to light. Visual fiel ds are full to confrontation throughout. Extraocular movement is intact no nystagmus is noted. Facial sensation is normal to touch throughout. The facial strength is normal throughout. Tongue is midline and moved [id number] without any difficulty. No dysarthria is noted. Shoulder shrug is normal bilaterally. Motor: The strength is 5 over 5 throughout. Normal tone and bulk. Sensation: Sensation is normal to touch throughout. Reflexes (right/left): Biceps2+/3+; triceps 2+/3+; brachioradialis 2+; patellar3+; ankles2+. SOME OF THE WORK-UP DURING THIS HOSPITAL VISIT CONSISTED OF: * MRI of the brain revealed extensive coalescent increased signal in the periventricular white matter in both cerebral hemispheres. This could be demyelinating disease or microvascular ischemia. Effusion weighted images show increased signal in multiple foci in the right cerebral hemisphere centrum semiovale and also in the left thalamus that could be acute infarcts or acute edema limiting disease. On my review, agree there is abnormal brain MRI, revealed 4 different areas of abnormal signal on diffusion weighted images, however negative on ADC mapping. Differential includes subacute stroke versus demyelination. All these 4 areas of abnormal signal on DWI had significant FLAIR abnormality, therefore could be T2 shine through. MRI also reveals significant white matter disease in the periventricular and subcortical white matter region particularly around the occipital horns bilaterally, raising possibility of multiple sclerosis. * MRI cervical spine revealed spondylotic changes in the cervical spine. Large area of abnormal signal within the cervical cord at the C4 5 level could be infarct or demyelinating disease. No cord mask. Mild left-sided C6 7 neural foraminal impingement. Posterior C6 7 disc herniation without significant spinal stenosis. There is mild relative spinal stenosis at C3 4. Canal measures 6 mm. I personally reviewed MRI, agree with the findings. The abnormal signal in the spinal cord is at the level of moderate spinal stenosis at C4 5 level. There is some spondylolisthesis at this level. * MRI of the brain with gadolinium is reported as extensive white matter signal changes around the ventricle and graywhite matter junction that is likely microvascular ischemia. The mind disease not excluded. No significant change compared to recent exam. No evidence of new infarct. Small 1.5 Center cortical infarct and left occipital lobe unchanged. * MRI of the cervical spine with contrast is reported as left paracentral focal disc herniation with moderate anterior thecal sac impression. This has ordered compression and deformity. Spinal canal stenosis is present. Septal signal changes present with in the spinal cord at this level without enhancement. * EEG was reported as normal. * Carotid Doppler revealed atheromatous plaquing bilaterally, greater on the right. Moderate narrowing between 50 and 69% proximal right ICA. Mild narrowing approaching 50% within the proximal left ICA. * 2-D echo was technically difficult study. Normal left ventricular dimension and systolic function. Poorly visualized intracardiac valves. * B12 is 722, TSH normal 1.27, vitamin D 50. Ammonia <9. Folate 17.80, hemoglobin A1c 5.1. * Lyme titers are negative. - Labs CBC & Chem 7: 06/29/22 06:21 06/29/22 06:21 Labs: Abnormal Lab Results - Last 24 Hours (Table) 06/26/22 Range/Units 20:09 RBC Folate 817 H (280 - 791) ng/mL Assessment and Plan Assessment: * Syncopal spell 3, unclear etiology. All of them occurred in sitting position, therefore need to rule out arrhythmia, seizure, versus orthostasis. Routine EEG is normal. * Patient had extensive white matter on MRI of the brain. On T2/FLAIR patient had hyperintensity around the periventricular, bilateral thalamus left more than right and left occipital. Patient does not have any enhancement on the MRI of the brain or cervical spine. The white matter seems likely due to chronic microvascular disease. Patient old left occipital seen possibly suggestive of old stroke. Cannot exclude the extensive white matter due to demylinating disease but feel more microvascular. * Cervical Myleopathy (C4-C5) due to severe stenosis. * Gait dysfunction, generalized weakness, with spasticity, ataxia. Most likely related to cervical myelopathy. Rule out demyelinating disease like MS. * Ataxia involving the left upper extremity and bilateral lower limbs. Probably due to cervical myelopathy. * Tobacco use * Reported exposure to agent orange in 1968. Plan: * Patient had extensive white matter on MRI of the brain. On T2/FLAIR patient had hyperintensity around the periventricular, bilateral thalamus left more than right and left occipital. Patient does not have any enhancement on the MRI of the brain or cervical spine. The white matter seems due to chronic microvascular disease. Patient old left occipital seen possibly suggestive of old stroke. Cannot exclude the extensive white matter due to demylinating disease but feel more microvascular. I discussed with reading radiologist (Armaan) who agree and appears more microvascular and agrees cannot rule out demylinating disease. * Pending lumbar puncture for MS panel. * Orthopedics spine input appreciated. They are considering cervical intervention and likely to proceed this Thursday. * Continue Aspirin 81 mg daily once cleared by orthopedic team. * Will defer the rest of medical management to the primary team. * Upon discharge, patient to follow-up with neurologist as outpatient within 1-2 weeks. The plan is discussed with the patient and primary team. Time with Patient: Less than 30
[2022-07-01 17:40] LABS: Glucose,CSF 89 mg/dL (40-70); Total Protein,CSF 73 mg/dL (12-60)
[2022-07-01 17:58] LABS: Appearance,CSF Clear; CSF Tube Number 4; CSF Tube Volume 1; Nucleated Cells, CSF 2 u/L (0-5); Red Blood Cell,CSF 387 u/L (0-10)
[2022-07-01 17:59] LABS: Red Blood Cell, CSF Crenated 3 %; Red Blood Cell, CSF Fresh 97 %
--- NOTE | 2022-07-01 20:59 | P.PN ---
Subjective Progress Note Date: 07/01/22 (delayed charting seen at 1600) Patient is a 71-year-old male with BPH who presented with gait instability. Patient seen and examined at bedside. Tolerated LP well, no chest pain, no SOB. He is was dependent on for cooking and cleaning due to weakness and no coordination, he was not very active or mobile before surgery. He did do his own bathing and dressing. Was smoking dialy. General: nontoxic, no distress, appears at stated age Derm: warm, dry Head: atraumatic, normocephalic, symmetric Eyes: EOMI, no lid lag, anicteric sclera Mouth: no lip lesion, mucus membranes moist Cardiovascular: S1S2 reg, no murmur, positive posterior tibial pulse bilateral, Lungs: CTA bilateral, no rhonchi, no rales , no accessory muscle use Abdominal: soft, nontender to palpation, no guarding, no appreciable organomegaly Ext: no gross muscle atrophy, no edema, no contractures Neuro: CN II-XI grossly intact, + intrinsic hand muscle wasting, no tremors Psych: Alert, oriented, appropriate affect Assessment/plan: Cervical myelopathy with spinal stenosis at C5 6 Abnormal MRI brain- d/w Dr. Snyder likely microvascular changes Ataxia Syncopal episode 3 -Await LP results - ASA - surgical intervention on 07/[address] pardo Moderate risk given help required for ADLS, no additional testing warranted at this time, Patient aware of elevated risk -Pain control -Gabapentin -PT/OT -continue with Decadron Macrocytic anemia -RBC folate 817 -Vitamin B12 722 -TSH 1.27 -Follow CBC Syncope wtih sinus pauses - cardio recs outpatient follow-up avoid AV bartolo blocking agents - Echo with EF 55-60% Tobacco abuse - cessation Acute kidney injury, resolved Hyponatremia, resolved Metabolic acidosis, resolved DVT prophylaxis: SCDs Discussed with: Patient, nursing Anticipated discharge: pending clinical course Anticipated discharge place: pending clinical course A total of 35 minutes was spent on the care of this complex patient more than 50% of the time was spent in counseling and care coordination. Active Medications Generic Name Dose Route Start Last Admin Trade Name Freq PRN Reason Stop Dose Admin Acetaminophen 650 mg 06/26/22 20:11 06/27/22 04:57 Acetaminophen Tab 325 Mg Tab PO 650 mg Q6HR PRN Administration Mild Pain or Fever > 100.5 Dexamethasone Sodium Phosphate 4 mg 06/29/22 09:00 07/01/22 17:04 Dexamethasone Sod Phosphate 4 Mg/Ml 1 Ml Vial IVP 4 mg Q6HR SHALONDA Administration Gabapentin 100 mg 06/27/22 00:45 07/01/22 15:28 Gabapentin 100 Mg Cap PO 100 mg TID SHALONDA Administration Sodium Chloride 1,000 mls @ 75 mls/hr 06/27/22 14:45 07/01/22 13:19 Saline 0.9% IV 75 mls/hr .[id number] SHALONDA Administration Naloxone HCl 0.2 mg 06/26/22 20:11 Naloxone 0.4 Mg/Ml 1 Ml Vial IV Q2M PRN Opioid Reversal Pantoprazole Sodium 40 mg 06/28/22 07:30 07/01/22 07:01 Pantoprazole 40 Mg Tablet PO 40 mg [id number] SHALONDA Administration Objective - Vital Signs Vital signs: Vital Signs Temp 97.7 F 07/01/22 14:00 Pulse 67 07/01/22 14:00 Resp 18 07/01/22 14:00 BP 103/68 07/01/22 14:00 Pulse Ox 97 07/01/22 14:00 FiO2 Intake & Output 07/01/22 07/01/22 07/02/22 06:59 18:59 06:59 Intake Total 50 Output Total 400 500 Balance -400 -450 Intake: IV 50 Output: Urine 400 500 Other: Voiding Method Urinal Urinal - Labs CBC & Chem 7: 06/29/22 06:21 06/29/22 06:21 Labs: Abnormal Lab Results - Last 24 Hours (Table) 07/01/22 Range/Units 11:20 CSF RBC 387 H (0-10) u/L CSF Glucose 89 H (40-70) mg/dL CSF Total Protein 73 H (12-60) mg/dL
[2022-07-01] MEDS: ACETAMINOPHEN TAB 325 MG TAB PO PRN (21:06)
[2022-07-02] MEDS: SODIUM CHLORIDE 0.9% 1,000 ML IV SCH ×2 (02:02→18:17)
[2022-07-02] MEDS: DEXAMETHASONE SOD PHOSPHATE 4 MG/ML 1 ML VIAL IVP SCH ×3 (05:19→18:16)
--- NOTE | 2022-07-02 07:40 | P.PN ---
Subjective Progress Note Date: 07/02/22 Principal diagnosis: Neck Pain Patient seen and examined at bedside. Patient is currently resting in bed. Patient continues to deny any changes regarding neck pain and bilateral upper extremity weakness. He states he is looking forward to surgical procedure to be performed to hopefully get relief of his symptoms. Patient states he has been using a urinal and getting up to BSC when needed. Patient denies any fevers/chills, shortness of breath, or chest pain. Objective - Vital Signs Vital signs: Vital Signs Temp 97.8 F 07/02/22 01:58 Pulse 67 07/02/22 01:58 Resp 18 07/02/22 01:58 BP 132/80 07/02/22 01:58 Pulse Ox 95 07/02/22 01:58 FiO2 Intake & Output 07/01/22 07/02/22 07/02/22 18:59 06:59 18:59 Intake Total 50 Output Total 500 400 Balance -450 -400 Intake: IV 50 Output: Urine 500 400 Other: Voiding Method Urinal - Exam Physical Examination General: The patient is awake and alert, in no acute distress Skin: Skin is warm and dry with no obvious rashes or lesions. Hairy patches absent, no dorsal skin dimples, no cafe au lait spots, and no surgical incisions. Eye: Pupils are equal, round and reactive to light, extra-ocular movements are intact; there is normal conjunctiva bilaterally. Neck: The neck is supple, there is no tenderness and ROM intact. Cardiovascular: There is a regular rate and rhythm. No murmur, rub or gallop is appreciated. Respiratory: Lungs are clear to auscultation, respirations are non-labored, breath sounds are equal. Gastrointestinal: Soft, non-distended, non-tender abdomen . Back: There is no tenderness to palpation in the midline, paralumbar, parathoracic or buttocks region. There is no obvious deformity . Musculoskeletal: ROM limited secondary to pain. Shoulder abduction 4-/5, elbow flexors 4-/5, wrist dorsiflexors 4-/5. finger abductor 4-/5, inspector boiler 4-/5, hip flexor 4-/5, knee flexor 4-/5, ankle dorsiflexor 4-/5, ankle plantarflexion 4-/5 and extensor hallucis 4-/5. Neurological: CN 2-12 intact. Patient is hyperflexic in bilateral upper extremities. Movement and coordination equal and intact. Sensory exam to light touch intact C5-T1 and intact from L2-S1. Reflexes 2/4 in bilateral upper and lower extremities. Negative Hoffmans, babinski, and clonus signs. Psychiatric: Cooperative, appropriate mood & affect, normal judgment. - Labs CBC & Chem 7: 06/29/22 06:21 06/29/22 06:21 Labs: Abnormal Lab Results - Last 24 Hours (Table) 07/01/22 Range/Units 11:20 CSF RBC 387 H (0-10) u/L CSF Glucose 89 H (40-70) mg/dL CSF Total Protein 73 H (12-60) mg/dL Assessment and Plan Assessment: Assessment: 1. 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 UE weakness with paresthesias and hyperreflexia 3. LE weakness with paresthesias and hyperreflexia Plan: Plan: 1. 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 This has been scheduled for Thursday pending medical clearance. 2. Appreciate medical management 3. Pain management - Tylenol; gabapentin 4. DVT prophylaxis - heparin 5. GI prophylaxis - Protonix 6. Encourage incentive spirometer use 7. PT/OT - weightbearing as tolerated with walker and assistance 8. Appreciate consult *I reviewed and discussed this case with my attending Dr. Odonnell, whom has reviewed this chart and films and is in agreement with assessment and plan of care as outlined above. I have personally seen and examined the patient, performed the documentation and the assessment and plan as written. Number of minutes spent on the visit: 20m.
[2022-07-02] MEDS: PANTOPRAZOLE 40 MG TABLET PO SCH (10:35)
[2022-07-02] MEDS: ACETAMINOPHEN TAB 325 MG TAB PO PRN (10:35)
[2022-07-02] MEDS: GABAPENTIN 100 MG CAP PO SCH ×3 (10:35→20:45)
[2022-07-02 10:45] LABS: HCT 32.5 % (39.6-50.0); HGB 10.2 g/dL (13.0-17.0); MCH 33.3 pg (27.0-32.0); MCHC 31.4 g/dL (32.0-37.0); MCV 106.2 fL (80.0-97.0); Mean Platelet Volume 10.7 fL (9.5-12.2); NRBC Per 100 WBC 0 /100 WBCS (0.0-0.0); Platelet Count 257 X 10*3/uL (140-440); RBC 3.06 X 10*6/uL (4.40-5.60); RDW 13.3 % (11.5-14.5); WBC 17.07 X 10*3/uL (4.50-10.00)
--- NOTE | 2022-07-02 11:24 | P.PN ---
Subjective Progress Note Date: 07/02/22 The patient is seen at bedside and feels about the same. He had lumbar puncture yesterday and states he tolerated well. He has surgical intervention on his neck scheduled this Thursday by Orthopedic. Objective - Vital Signs Vital signs: Vital Signs Temp 98.0 F 07/02/22 07:30 Pulse 66 07/02/22 08:29 Resp 16 07/02/22 08:29 BP 128/85 07/02/22 07:30 Pulse Ox 96 07/02/22 07:30 FiO2 Intake & Output 07/01/22 07/02/22 07/02/22 18:59 06:59 18:59 Intake Total 50 Output Total 500 400 Balance -450 -400 Intake: IV 50 Output: Urine 500 400 Other: Voiding Method Urinal Toilet Urinal # Bowel Movements 1 - Exam GENERAL: The patient is lying in bed and is not in acute distress. NEUROLOGICAL: Higher mental function: The patient is awake, alert, oriented to self, place and time. Patient is following commands. No aphasia and no neglect. Cranial nerves: The pupils are round, equal and reactive to light. Visual cho are full to confrontation throughout. Extraocular movement is intact no nystagmus is noted. Facial sensation is normal to touch throughout. The facial strength is normal throughout. Tongue is midline and moved [id number] without any difficulty. No dysarthria is noted. Shoulder shrug is normal bilaterally. Motor: The strength is 5 over 5 throughout. Normal tone and bulk. Sensation: Sensation is normal to touch throughout. Reflexes (right/left): Biceps2+/3+; triceps 2+/3+; brachioradialis 2+; patellar3+; ankles2+. SOME OF THE WORK-UP DURING THIS HOSPITAL VISIT CONSISTED OF: * MRI of the brain revealed extensive coalescent increased signal in the periventricular white matter in both cerebral hemispheres. This could be demyelinating disease or microvascular ischemia. Effusion weighted images show increased signal in multiple foci in the right cerebral hemisphere centrum semiovale and also in the left thalamus that could be acute infarcts or acute edema limiting disease. On my review, agree there is abnormal brain MRI, revealed 4 different areas of abnormal signal on diffusion weighted images, however negative on ADC mapping. Differential includes subacute stroke versus demyelination. All these 4 areas of abnormal signal on DWI had significant FLAIR abnormality, therefore could be T2 shine through. MRI also reveals significant white matter disease in the periventricular and subcortical white matter region particularly around the occipital horns bilaterally, raising possibility of multiple sclerosis. * MRI cervical spine revealed spondylotic changes in the cervical spine. Large area of abnormal signal within the cervical cord at the C4 5 level could be infarct or demyelinating disease. No cord mask. Mild left-sided C6 7 neural foraminal impingement. Posterior C6 7 disc herniation without significant spinal stenosis. There is mild relative spinal stenosis at C3 4. Canal measures 6 mm. I personally reviewed MRI, agree with the findings. The abnormal signal in the spinal cord is at the level of moderate spinal stenosis at C4 5 level. There is some spondylolisthesis at this level. * MRI of the brain with gadolinium is reported as extensive white matter signal changes around the ventricle and graywhite matter junction that is likely microvascular ischemia. The mind disease not excluded. No significant change compared to recent exam. No evidence of new infarct. Small 1.5 Center cortical infarct and left occipital lobe unchanged. * MRI of the cervical spine with contrast is reported as left paracentral focal disc herniation with moderate anterior thecal sac impression. This has ordered compression and deformity. Spinal canal stenosis is present. Septal signal changes present with in the spinal cord at this level without enhancement. * EEG was reported as normal. * Carotid Doppler revealed atheromatous plaquing bilaterally, greater on the right. Moderate narrowing between 50 and 69% proximal right ICA. Mild narrowing approaching 50% within the proximal left ICA. * 2-D echo was technically difficult study. Normal left ventricular dimension and systolic function. Poorly visualized intracardiac valves. * B12 is 722, TSH normal 1.27, vitamin D 50. Ammonia <9. Folate 17.80, hemoglobin A1c 5.1. * Lyme titers are negative. * CSF: clear, colorless, rbc 387, total nucleated cells 2, glucose 89 (normal is 40-70), total protein is 73 (normal is 12-60). Opening pressure is 9 and closing is 9 cm H20. 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 * Syncopal spell 3, unclear etiology. All of them occurred in sitting pos ition, therefore need to rule out arrhythmia, seizure, versus orthostasis. Routine EEG is normal. * Patient had extensive white matter on MRI of the brain. On T2/FLAIR patient had hyperintensity around the periventricular, bilateral thalamus left more than right and left occipital. Patient does not have any enhancement on the MRI of the brain or cervical spine. The white matter seems likely due to chronic microvascular disease. Patient old left occipital seen possibly suggestive of old stroke. Cannot exclude the extensive white matter due to demylinating disease but feel more microvascular. * Gait dysfunction, generalized weakness, with spasticity, ataxia. Most likely related to cervical myelopathy. Rule out demyelinating disease like MS. * Ataxia involving the left upper extremity and bilateral lower limbs. Probably due to cervical myelopathy. * Tobacco use * Reported exposure to agent orange in 1968. Plan: * Patient had extensive white matter on MRI of the brain. On T2/FLAIR patient had hyperintensity around the periventricular, bilateral thalamus left more than right and left occipital. Patient does not have any enhancement on the MRI of the brain or cervical spine. The white matter seems due to chronic microvascular disease. Patient old left occipital seen possibly suggestive of old stroke. Cannot exclude the extensive white matter due to demylinating disease but feel more microvascular. I discussed with reading radiologist (Armaan) who agree and appears more microvascular and agrees cannot rule out demylinating disease. * Pending CSF MS panel. * Orthopedics spine input appreciated. They are considering cervical intervention and likely to proceed this Thursday. * Continue Aspirin 81 mg daily once cleared by orthopedic team. * Will defer the rest of medical management to the primary team. * Upon discharge, patient to follow-up with neurologist as outpatient within 1-2 weeks. The plan is discussed with the patient and primary team. Time with Patient: Less than 30
[2022-07-02 11:59] LABS: African American GFR (CKD) 86.2 (60.0-200.0); Anion Gap 7.1 mmol/L (10.00-18.00); BUN/Creat Ratio 39.4 Ratio (12.00-20.00); Blood Urea Nitrogen 39.4 mg/dL (9.0-27.0); Calcium 9.2 mg/dL (8.7-10.3); Carbon Dioxide 24.9 mmol/L (20.0-27.5); Non-African American GFR(CKD) 74.3 (60.0-200.0); Potassium 4.8 mmol/L (3.5-5.5)
[2022-07-02 13:34] LABS: IgG - CSF 2.8 mg/dL (0.0 - 3.4); IgG/Albumin Index (CSF) 0.37 (0.00 - 0.77); Immunoglobulin G 912 mg/dL (700 - 1600)
[2022-07-02] MEDS: bisacodyL 10 MG SUPP RECTAL STA (17:01)
--- NOTE | 2022-07-02 17:51 | P.PN ---
Subjective Progress Note Date: 07/02/22 (delayed charting seen at 1300) Patient is a 71-year-old male with BPH who presented with gait instability. Patient was evaluated by neurology and orthopedic spine surgery. He was worked up for demyelinating disease however it was felt that is changes on brain are likely reflective of microvascular ischemia. Is also found to have spinal cord compression. During his hospital stay he developed sinus pauses. He was evaluated by cardiology who recommended avoidance of AV bartolo blocking agents and follow up in the outpatient setting. Imaging: MRI brain with contrast: Extensive white matter signal changes around the ventricles that is likely microvascular ischemia, demyelinating disease not excluded, small 1.5 cm cortical infarct left occipital lobe unchanged MRI cervical spine with contrast: Left paracentral focal disc herniation with moderate anterior thecal sac impression, cord compression and deformity, spinal canal stenosis Cervical and thoracic spine CT. Anterolisthesis of C4 on 5 ML marked degeneration of the uncovertebral joints, moderate degenerative disc disease MRI brain and C-spine: Spondylitic changes in the cervical spine with large area of abnormal signal no cervical 4 at C4 5 could be infarct versus demyelinating disease, no cord mass, left-sided C6 7 neuro foraminal impingement, extensive coalescent increased signal in the periventricular white matter in both cerebral hemispheres representing demyelinating disease or microvascular ischemia EEG: Normal weight/drowsy EEG Carotid Doppler: Moderate narrowing between 50 and 69% of the right internal carotid artery, mild narrowing 50% of the left internal carotid artery Echocardiogram: Technically difficult study, normal left ventricular dimensions and systolic function Patient seen and examined at bedside. Tolerated LP well, no chest pain, no SOB. He is was dependent on for cooking and cleaning due to weakness and no coordination, he was not very active or mobile before surgery. He did do his own bathing and dressing. Was smoking dialy. General: nontoxic, no distress, appears at stated age Derm: warm, dry Head: atraumatic, normocephalic, symmetric Eyes: EOMI, no lid lag, anicteric sclera Mouth: no lip lesion, mucus membranes moist Cardiovascular: S1S2 reg, no murmur, positive posterior tibial pulse bilateral, Lungs: CTA bilateral, no rhonchi, no rales , no accessory muscle use Abdominal: soft, nontender to palpation, no guarding, no appreciable organomegaly Ext: no gross muscle atrophy, no edema, no contractures Neuro: CN II-XI grossly intact, + intrinsic hand muscle wasting, no tremors Psych: Alert, oriented, appropriate affect Assessment/plan: Cervical myelopathy with spinal stenosis at C4/5 Abnormal MRI brain- d/w Dr. Snyder likely microvascular changes Ataxia Syncopal episode 3 -Await CSF MS pannel - ASA - surgical intervention on 07/[address] pardo Moderate risk given help required for ADLS, no additional testing warrante d at this time, Patient aware of elevated risk -Pain control -Gabapentin -PT/OT -continue with Decadron Macrocytic anemia -RBC folate 817 -Vitamin B12 722 -TSH 1.27 -Follow CBC Syncope wtih sinus pauses - cardio recs outpatient follow-up avoid AV bartolo blocking agents - Echo with EF 55-60% Tobacco abuse - cessation Leukocytosis, reactive -Follow CBC -Monitor finger profile closely Acute kidney injury, resolved Hyponatremia, resolved Metabolic acidosis, resolved DVT prophylaxis: SCDs Discussed with: Patient, nursing Anticipated discharge: pending clinical course Anticipated discharge place: pending clinical course A total of 25 minutes was spent on the care of this complex patient more than 50% of the time was spent in counseling and care coordination. Objective - Vital Signs Vital signs: Vital Signs Temp 97.9 F 07/02/22 13:59 Pulse 69 07/02/22 14:01 Resp 16 07/02/22 14:01 BP 130/88 07/02/22 13:59 Pulse Ox 96 07/02/22 13:59 FiO2 Intake & Output 07/01/22 07/02/22 07/02/22 18:59 06:59 18:59 Intake Total 50 Output Total 500 400 Balance -450 -400 Weight 56.699 kg Intake: IV 50 Output: Urine 500 400 Other: Voiding Method Urinal Toilet Urinal # Voids 2 # Bowel Movements 1 - Labs CBC & Chem 7: 07/02/22 07:12 07/02/22 07:12 Labs: Abnormal Lab Results - Last 24 Hours (Table) 06/28/22 07/01/22 07/02/22 Range/Units 15:33 11:20 07:12 WBC 17.07 H (4.50-10.00) X 10*3/uL RBC 3.06 L (4.40-5.60) X 10*6/uL Hgb 10.2 L (13.0-17.0) g/dL Hct 32.5 L (39.6-50.0) % MCV 106.2 H (80.0-97.0) fL MCH 33.3 H (27.0-32.0) pg MCHC 31.4 L (32.0-37.0) g/dL Anion Gap (10.00-18.00) mmol/L BUN (9.0-27.0) mg/dL BUN/Creatinine Ratio (12.00-20.00) Ratio Glucose (70-110) mg/dL CSF RBC 387 H (0-10) u/L CSF Glucose 89 H (40-70) mg/dL CSF Total Protein 73 H (12-60) mg/dL Serum Albumin 3,190 L (3500 - 5200) mg/dL 07/02/22 Range/Units 07:12 WBC (4.50-10.00) X 10*3/uL RBC (4.40-5.60) X 10*6/uL Hgb (13.0-17.0) g/dL Hct (39.6-50.0) % MCV (80.0-97.0) fL MCH (27.0-32.0) pg MCHC (32.0-37.0) g/dL Anion Gap 7.10 L (10.00-18.00) mmol/L BUN 39.4 H (9.0-27.0) mg/dL BUN/Creatinine Ratio 39.40 H (12.00-20.00) Ratio Glucose 122 H (70-110) mg/dL CSF RBC (0-10) u/L CSF Glucose (40-70) mg/dL CSF Total Protein (12-60) mg/dL Serum Albumin (3500 - 5200) mg/dL
[2022-07-03] MEDS: DEXAMETHASONE SOD PHOSPHATE 4 MG/ML 1 ML VIAL IVP SCH ×4 (00:20→17:52)
[2022-07-03] MEDS: SODIUM CHLORIDE 0.9% 1,000 ML IV SCH ×2 (06:00→08:19)
[2022-07-03] MEDS: GABAPENTIN 100 MG CAP PO SCH ×3 (08:14→20:30)
[2022-07-03] MEDS: ACETAMINOPHEN TAB 325 MG TAB PO PRN (08:14)
[2022-07-03] MEDS: PANTOPRAZOLE 40 MG TABLET PO SCH (08:14)
[2022-07-03] MEDS: bisacodyL 10 MG SUPP RECTAL STA (08:16)
--- NOTE | 2022-07-03 12:34 | P.PN ---
Subjective Progress Note Date: 07/03/22 Principal diagnosis: 1. 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 UE weakness with paresthesias and hyperreflexia 3. LE weakness with paresthesias and hyperreflexia Patient was seen at bedside this morning lying in the semirecumbent position. Patient says he is still unable to walk. Patient does note that he has better movement in his left leg. Patient says he does want to move forward with spine surgery. Patient denies chest pain, fever, shortness breath, nausea, vomiting, change in vision, loss of bowel/bladder control. Objective - Vital Signs Vital signs: Vital Signs Temp 97.9 F 07/03/22 08:00 Pulse 65 07/03/22 08:00 Resp 17 07/03/22 08:00 BP 159/89 07/03/22 08:00 Pulse Ox 94 L 07/03/22 08:00 FiO2 Intake & Output 07/02/22 07/03/22 07/03/22 18:59 06:59 18:59 Output Total 450 1100 Balance -450 -1100 Weight 56.699 kg Output: Urine 450 1100 Other: Voiding Method Toilet Toilet Urinal Urinal # Voids 2 # Bowel Movements 1 - Exam Negative for any open fractures, significant ecchymosis/erythema, ulcers. Patient is cachectic. Patient does have some tenderness to palpation along the posterior cervical spine. Nontender to palpation throughout rest exam. Patient does have sensation in the bilateral upper and lower extremities. Patient is a bit hyperreflexive on examining both the upper and lower extremities. Patient does have range of motion of the cervical spine, however it is present with some mild pain. Patient does have some limited range of motion in hip flexion/extension and shoulder forward elevation. Patient has full range of motion and knee flexion/extension dorsi/plantar flexion bilaterally and elbow flexion/extension and wrist flexion/extension. motor exam 4-/5 in UE in all motor groups. 4-/5 in all LE motor groups. Radial pulses intact bilaterally. Cap refill under 3 seconds in his upper extremities digits. Positive Domitila's bilaterally. Positive clonus bilaterally. Negative Homans bilaterally. - Labs CBC & Chem 7: 07/02/22 07:12 07/02/22 07:12 Labs: Abnormal Lab Results - Last 24 Hours (Table) 06/28/22 07/02/22 07/02/22 Range/Units 15:33 07:12 07:12 WBC 17.07 H (4.50-10.00) X 10*3/uL RBC 3.06 L (4.40-5.60) X 10*6/uL Hgb 10.2 L (13.0-17.0) g/dL Hct 32.5 L (39.6-50.0) % MCV 106.2 H (80.0-97.0) fL MCH 33.3 H (27.0-32.0) pg MCHC 31.4 L (32.0-37.0) g/dL Anion Gap 7.10 L (10.00-18.00) mmol/L BUN 39.4 H (9.0-27.0) mg/dL BUN/Creatinine Ratio 39.40 H (12.00-20.00) Ratio Glucose 122 H (70-110) mg/dL Serum Albumin 3,190 L (3500 - 5200) mg/dL Assessment and Plan Assessment: 1. 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 UE weakness with paresthesias and hyperreflexia 3. LE weakness with paresthesias and hyperreflexia Plan: 1. 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 NPO after midnight tonight. withhold thinners at this time. We will continue to follow patient during his stay. 2. Appreciate medical management 3. Pain management - Tylenol; gabapentin 4. DVT prophylaxis - mechanical. Withhold thinners at this time. 5. GI prophylaxis - Protonix 6. Encourage incentive spirometer use 7. PT/OT - weightbearing as tolerated with walker and assistance 8. Appreciate consult Time with Patient: Less than 30
--- NOTE | 2022-07-03 13:47 | P.PN ---
Subjective Progress Note Date: 07/03/22 The patient is seen at bedside and stated he is doing well. He denies any new neurological issues. Is looking forward to his cervical surgery tomorrow. Objective - Vital Signs Vital signs: Vital Signs Temp 97.6 F 07/03/22 12:45 Pulse 73 07/03/22 12:45 Resp 18 07/03/22 12:45 BP 126/86 07/03/22 12:45 Pulse Ox 94 L 07/03/22 12:45 FiO2 Intake & Output 07/02/22 07/03/22 07/03/22 18:59 06:59 18:59 Output Total 450 1100 300 Balance -450 -1100 -300 Weight 56.699 kg Output: Urine 450 1100 300 Other: Voiding Method Toilet Toilet Toilet Urinal Urinal Urinal # Voids 2 # Bowel Movements 1 - Exam GENERAL: The patient is lying in bed and is not in acute distress. NEUROLOGICAL: Higher mental function: The patient is awake, alert, oriented to self, place and time. Patient is following commands. No aphasia and no neglect. Cranial nerves: The pupils are round, equal and reactive to light. Visual cho are full to confrontation throughout. Extraocular movement is intact no nystagmus is noted. Facial sensation is normal to touch throughout. The facial strength is normal throughout. Tongue is midline and moved [id number] without any difficulty. No dysarthria is noted. Shoulder shrug is normal b ilaterally. Motor: The strength is 5 over 5 throughout. Normal tone and bulk. Sensation: Sensation is normal to touch throughout. Reflexes (right/left): Biceps2+/3+; triceps 2+/3+; brachioradialis 2+; patellar3+; ankles2+. SOME OF THE WORK-UP DURING THIS HOSPITAL VISIT CONSISTED OF: * MRI of the brain revealed extensive coalescent increased signal in the periventricular white matter in both cerebral hemispheres. This could be demyelinating disease or microvascular ischemia. Effusion weighted images show increased signal in multiple foci in the right cerebral hemisphere centrum semiovale and also in the left thalamus that could be acute infarcts or acute edema limiting disease. On my review, agree there is abnormal brain MRI, revealed 4 different areas of abnormal signal on diffusion weighted images, however negative on ADC mapping. Differential includes subacute stroke versus demyelination. All these 4 areas of abnormal signal on DWI had significant FLAIR abnormality, therefore could be T2 shine through. MRI also reveals significant white matter disease in the periventricular and subcortical white matter region particularly around the occipital horns b ilaterally, raising possibility of multiple sclerosis. * MRI cervical spine revealed spondylotic changes in the cervical spine. Large area of abnormal signal within the cervical cord at the C4 5 level could be infarct or demyelinating disease. No cord mask. Mild left-sided C6 7 neural foraminal impingement. Posterior C6 7 disc herniation without significant spinal stenosis. There is mild relative spinal stenosis at C3 4. Canal measures 6 mm. I personally reviewed MRI, agree with the findings. The abnormal signal in the spinal cord is at the level of moderate spinal stenosis at C4 5 level. There is some spondylolisthesis at this level. * MRI of the brain with gadolinium is reported as extensive white matter signal changes around the ventricle and graywhite matter junction that is likely microvascular ischemia. The mind disease not excluded. No significant change compared to recent exam. No evidence of new infarct. Small 1.5 Center cortical infarct and left occipital lobe unchanged. * MRI of the cervical spine with contrast is reported as left paracentral focal disc herniation with moderate anterior thecal sac impression. This has ordered compression and deformity. Spinal canal stenosis is present. Septal signal changes present with in the spinal cord at this level without enhancement. * EEG was reported as normal. * Carotid Doppler revealed atheromatous plaquing bilaterally, greater on the right. Moderate narrowing between 50 and 69% proximal right ICA. Mild narrowing approaching 50% within the proximal left ICA. * 2-D echo was technically difficult study. Normal left ventricular dimension and systolic function. Poorly visualized intracardiac valves. * B12 is 722, TSH normal 1.27, vitamin D 50. Ammonia <9. Folate 17.80, hemoglobin A1c 5.1. * Lyme titers are negative. * CSF: clear, colorless, rbc 387, total nucleated cells 2, glucose 89 (normal is 40-70), total protein is 73 (normal is 12-60). Opening pressure is 9 and closing is 9 cm H20. * MS CSF protocol: No oligoclonal bands. IgG index is within normal limits. 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 * Syncopal spell 3, unclear etiology. All of them occurred in sitting position, therefore need to rule out arrhythmia, seizure, versus orthostasis. Routine EEG is normal. * Patient had extensive white matter on MRI of the brain. On T2/FLAIR patient had hyperintensity around the periventricular, bilateral thalamus left more than right and left occipital. Patient does not have any enhancement on the MRI of the brain or cervical spine. The white matter seems likely due to chronic microvascular disease. Patient old left occipital seen possibly suggestive of old stroke. Cannot exclude the extensive white matter due to ?demylinating disease but again feel more microvascular. * Gait dysfunction, generalized weakness, with spasticity, ataxia. Most likely related to cervical myelopathy. Rule out demyelinating disease like MS. * Ataxia involving the left upper extremity and bilateral lower limbs. Probably due to cervical myelopathy. * Tobacco use * Reported exposure to agent orange in 1968. Plan: * Patient had extensive white matter on MRI of the brain. On T2/FLAIR patient had hyperintensity around the periventricular, bilateral thalamus left more than right and left occipital. Patient does not have any enhancement on the MRI of the brain or cervical spine. The white matter seems due to chronic microvascular disease. Patient old left occipital seen possibly suggestive of old stroke. Cannot exclude the extensive white matter due to demylinating disease but feel more microvascular. I discussed with reading radiologist (Armaan) who agree and appears more microvascular and agrees cannot rule out demylinating disease. * Orthopedics spine input appreciated. They are considering cervical intervention and likely to proceed this Thursday. * Continue Aspirin 81 mg daily once cleared by orthopedic team. * Will defer the rest of medical management to the primary team. * Upon discharge, patient to follow-up with neurologist as outpatient within 1-2 weeks. The plan is discussed with the patient. Will follow-up sporadically. Time with Patient: Less than 30
--- NOTE | 2022-07-03 15:31 | P.PN ---
Subjective Progress Note Date: 07/03/22 (delayed charting seen at 0900) Patient is a 71-year-old male with BPH who presented with gait instability. Patient was evaluated by neurology and orthopedic spine surgery. He was worked up for demyelinating disease however it was felt that is changes on brain are likely reflective of microvascular ischemia. He was also found to have spinal cord compression. During his hospital stay he developed sinus pauses. He was evaluated by cardiology who recommended avoidance of AV bartolo blocking agents and follow up in the outpatient setting. Imaging: MRI brain with contrast: Extensive white matter signal changes around the ventricles that is likely microvascular ischemia, demyelinating disease not excluded, small 1.5 cm cortical infarct left occipital lobe unchanged MRI cervical spine with contrast: Left paracentral focal disc herniation with moderate anterior thecal sac impression, cord compression and deformity, spinal canal stenosis Cervical and thoracic spine CT. Anterolisthesis of C4 on 5 ML marked degeneration of the uncovertebral joints, moderate degenerative disc disease MRI brain and C-spine: Spondylitic changes in the cervical spine with large area of abnormal signal no cervical 4 at C4 5 could be infarct versus demyelinating disease, no cord mass, left-sided C6 7 neuro foraminal impingement, extensive coalescent increased signal in the periventricular white matter in both cerebral hemispheres representing demyelinating disease or microvascular ischemia EEG: Normal weight/drowsy EEG Carotid Doppler: Moderate narrowing between 50 and 69% of the right internal carotid artery, mild narrowing 50% of the left internal carotid artery Echocardiogram: Technically difficult study, normal left ventricular dimensions and systolic function Patient seen and examined at bedside. He is doing well today. No complaints currently. Had a bowel movement this morning. General: nontoxic, no distress, appears at stated age Derm: warm, dry Head: atraumatic, normocephalic, symmetric Eyes: EOMI, no lid lag, anicteric sclera Mouth: no lip lesion, mucus membranes moist Cardiovascular: S1S2 reg, no murmur, positive posterior tibial pulse bilateral, Lungs: CTA bilateral, no rhonchi, no rales , no accessory muscle use Abdominal: soft, nontender to palpation, no guarding, no appreciable organomegaly Ext: no gross muscle atrophy, no edema, no contractures Neuro: CN II-XI grossly intact, + intrinsic hand muscle wasting, no tremors Psych: Alert, oriented, appropriate affect Assessment/plan: Cervical myelopathy with spinal stenosis at C4/5 Abnormal MRI brain- d/w Dr. Snyder likely microvascular changes Ataxia Syncopal episode 3 -Await CSF MS brisa - ASA - surgical intervention on 07/[address] pardo Moderate risk given help required for ADLS, no additional testing warranted at this time, Patient aware of elevated risk -Pain control -Gabapentin -PT/OT -continue with Decadron Macrocytic anemia -RBC folate 817 -Vitamin B12 722 -TSH 1.27 -Follow CBC Syncope wtih sinus pauses - cardio recs outpatient follow-up avoid AV bartolo blocking agents - Echo with EF 55-60% Tobacco abuse - cessation Leukocytosis, reactive -Follow CBC -Monitor finger profile closely Acute kidney injury, resolved Hyponatremia, resolved Metabolic acidosis, resolved DVT prophylaxis: SCDs Discussed with: Patient, nursing Anticipated discharge: pending clinical course Anticipated discharge place: pending clinical course A total of 25 minutes was spent on the care of this complex patient more than 50% of the time was spent in counseling and care coordination. Objective - Vital Signs Vital signs: Vital Signs Temp 97.6 F 07/03/22 12:45 Pulse 73 07/03/22 12:45 Resp 18 07/03/22 12:45 BP 126/86 07/03/22 12:45 Pulse Ox 94 L 07/03/22 12:45 FiO2 Intake & Output 07/02/22 07/03/22 07/03/22 18:59 06:59 18:59 Output Total 450 1100 300 Balance -450 -1100 -300 Weight 56.699 kg Output: Urine 450 1100 300 Other: Voiding Method Toilet Toilet Toilet Urinal Urinal Urinal # Voids 2 # Bowel Movements 1 - Labs CBC & Chem 7: 07/02/22 07:12 07/02/22 07:12
[2022-07-03 16:13] LABS: HCT 32.5 % (39.0-53.0); HGB 10.7 gm/dL (13.0-17.5); MCH 34.2 pg (25.0-35.0); MCHC 32.9 g/dL (31.0-37.0); MCV 104.1 fL (80.0-100.0); Macrocytosis Slight; Mean Platelet Volume 9.7; Platelet Count 266 k/uL (150-450); RBC 3.13 m/uL (4.30-5.90); RDW 13.2 % (11.5-15.5); WBC 14.9 k/uL (3.8-10.6)
[2022-07-04] MEDS ORDERED: DEXAMETHASONE SOD PHOSPHATE 4 MG/ML 1 ML VIAL ONE (00:28)
[2022-07-04] MEDS ORDERED: TRANEXAMIC ACID IN NACL,ISO-OS 1,000 MG in SALINE 1 100ML.BAG IVPB PRN ×2 (05:00)
[2022-07-04] MEDS: DEXAMETHASONE SOD PHOSPHATE 4 MG/ML 1 ML VIAL IVP SCH ×4 (05:19→20:11)
[2022-07-04 07:46] LABS: African American GFR (CKD) 85 (>60 ml/min/1.73 sqM); Anion Gap 5 mmol/L; Blood Urea Nitrogen 45 mg/dL (9-20); Calcium 8.6 mg/dL (8.4-10.2); Carbon Dioxide 25 mmol/L (22-30); Chloride 105 mmol/L (98-107); Glucose 114 mg/dL (74-99); Non-African American GFR(CKD) 74 (>60 ml/min/1.73 sqM); Sodium 135 mmol/L (137-145)
[2022-07-04 07:53] LABS: HGB 10.6 gm/dL (13.0-17.5); MCH 34.1 pg (25.0-35.0); MCHC 33.2 g/dL (31.0-37.0); MCV 102.8 fL (80.0-100.0); Macrocytosis Slight; Mean Platelet Volume 9.9; Platelet Count 263 k/uL (150-450); RBC 3.12 m/uL (4.30-5.90); RDW 13.2 % (11.5-15.5); WBC 13.1 k/uL (3.8-10.6)
--- NOTE | 2022-07-04 08:21 | P.PN ---
Progress Note - Text Progress Note Date: 07/04/22 Spine Surgery Clinical and Risk Review Brenton Moraes is a 71-year-old male presenting for evaluation of weakness in bilateral upper and lower extremities difficulty with gait difficulty with fine motor skills frequent falls and neck pain. It was my pleasure to have seen and examined Brenton Moraes . In our visit today we have had a chance to go over subjective complaints, physical examination findings and treatments including the natural course history without intervention and various interventional options. The patients imaging demonstrates severe cervical stenosis with spondylosis as well as demyelinating factors within the cervical as well as brain region. There is myomalacia around the stenotic areas of the cervical spine no acute fractures noted. On physical exam, Brenton Moraes demonstrates myelopathic findings with hyperreflexia and upper and lower extremities difficulty with gait and fine motor skills neck pain with tensioning signs. I have explained to the patient that as their condition progresses it will cause further neurological deficits and eventual paralysis. Based on the patients imaging, physical exam, and the rapid progression and disabling nature of their symptoms, at this time I recommend surgery in the form or a: Posterior cervical decompression and fusion from C2 to T2. I discussed the risk and benefits of this procedure at length with Brenton Moraes . The patient agreed to considered pursuing the procedure abovementioned. Prior to surgery, she should follow up with her PCP (Cardio, ID, IM etc) for clearance. Questions were invited and answered, and the patient wishes to proceed as outlined below. Currently, I am recommendin. Posterior cervical decompression and fusion from C2 to T2 2. Follow up with PCP for surgical clearance 3. Review of surgical risks and benefits as well as an educational packet on the proposed surgical procedure. Risks: All surgical procedures come with inherent risks, including those related to positioning, anesthesia, intraoperative findings, and postoperative complications. It is important to understand that surgery does not come with any guarantee of a successful outcome as complications and adverse events are always possible. The patient was given a handout in office today discussing the surgical procedure and risks associated with the intervention, both of which were discussed with the patient. These risks include but are not limited to the following: * Experiencing same, different or even worse symptoms in back, neck, arms, or legs compared to before surgery. * Requiring further surgery or other forms of treatment presently or at some time in the future at same or other levels of the intended spine surgery. * On an extreme but fortunately relatively rare basis severe complication such as blindness, stroke, heart attack, temporary and/or permanent nerve injury, paralysis, coma, or may occur, sometimes without known explanation. * Surgical complications may include but are not limited to risk of infection, fluid accumulation in the surgical dissection site, including a seroma or hematoma, that requires additional surgery, wound drainage, bleeding, new numbness or weakness, vision changes/loss, spinal fluid leakage, non-healing and/or infected incision, headaches, difficulty or inability to swallow, hoarseness, hemopneumothorax, pneumothorax, impotence, retrograde ejaculation, vaginal dryness; injury to nerves, spinal cord, blood vessels, lymphatics or other vital organs (i.e., bowel injury, injury to the great vessels); heterotopic bone formation; complications related to the hardware such as screws, rods, cages including misplaced hardware, device failure, instrumentation at the wrong spine level, hardware fracture/breakage, or hardware loosening; vertebral failure of the spinal column above or below the newly placed hardware; retained surgical instrumentations or devices and the need for further surgery. * Medical risks of the planned spine surgery include but are not limited to generalized Infections to the whole body or local areas outside of the surgical site (sepsis), heart attack, bleeding, anaphylaxis, meningitis, seizure, epilepsy, hearing loss, burn gregorio, laceration of the head or other areas of the body, bruising, hypersensitivity of the skin, bladder over distension; allergic reaction; shoulder injury related to positioning; fat, blood and air clots to other areas of the body like heart, lungs, brain; failure of internal organs such as lungs, kidneys, liver and excessive bleeding. If blood transfusions are necessary, note that transfusions may cause intolerance reactions such as anaphylaxis or other complex reactions. * Despite best efforts, the results of spine surgery might not heal in terms of bone, soft tissues such as skin, fascia, ligaments, and joints. Additionally, in order to achieve best possible results, spine surgery may be carried out beyond the initially planned levels and involve decompression, fusion including insertion of hardware at levels other than the original intended area of surgical interest change some portions of the procedure in order to ensure the best possible outcomes. * With spine surgery and spinal fusion, there are different off label uses of instrumentation (devices, implants and hardware) as well as biological substances (bone morphogenic proteins, demineralized bone matrix) as well as using extra bone from allograft sources (i.e. cadaver bone) or autograft (iliac crest bone, ribs, or the spine itself). The patient has been given information about these practices and their inherent risks and benefits. The patient has had a chance to review all the listed information, has been given print outs detailing this information, and has had all his/her questions answered to their satisfaction. It was my pleasure to have seen and examined Brenton Moraes . In our visit today we have had a chance to go over my understanding of our patient's current condition, the natural course history without intervention and various interventional options. Questions were invited and answered, and the patient wishes to proceed as outlined above. I have seen and examined the patient for 25 minutes and we have spent more than 50% of the time in repeat and detailed counseling about the patient's condition, its natural course history with out and as much as can be predicted with surgery and re-review of various surgical treatment options. In conclusion, Brenton Moraes and his family requested we proceed with the above suggested surgery and are willing to accept risks and limitations of the suggested surgery as nature of the disease process and our best attempts at treatment for the condition. Thank you again for allowing us to be part of your patient's care. Please don't hesitate to contact me if you have any further questions. Signed and authenticated by: Jose [facility] [address] [facility], [address] [address]
[2022-07-04] MEDS: ACETAMINOPHEN TAB 325 MG TAB PO PRN (10:45)
[2022-07-04] MEDS: GABAPENTIN 100 MG CAP PO SCH ×3 (10:45→21:09)
[2022-07-04] MEDS: PANTOPRAZOLE 40 MG TABLET PO SCH (10:45)
[2022-07-04] MEDS: SODIUM CHLORIDE 0.9% 1,000 ML IV SCH ×2 (10:51→20:16)
[2022-07-04] MEDS ORDERED: LACTATED RINGERS 1,000 ML IV ONE ×3 (13:14→16:30)
[2022-07-04] MEDS ORDERED: ONDANSETRON 4 MG/2 ML VIAL ONE (13:22)
[2022-07-04] MEDS ORDERED: ONDANSETRON 4 MG/2 ML VIAL IVP ONE (13:35)
--- NOTE | 2022-07-04 13:59 | CDI ---
Documentation Clarification Form Date: 07/04/2022 01:24:45 PM From: Shana Welsh RN CCDS Admit Date: 06/30/2022 11:28:00 AM Patient Name: Brenton Moraes Visit Number: [id number] Discharge Date: ATTENTION: The Clinical Documentation Specialists (CDI) and [facility] Coding Staff appreciate your assistance in clarifying documentation. Please respond to the clarification below the line at the bottom and electronically sign. The CDI & [facility] Coding staff will review the response and follow-up if needed. Please note: Queries are made part of the Legal Health Record. If you have any questions, please contact the author of this message via ITS. Dr. Delia Wilson Malnutrition is documented 06/27 06/29, Medicine Notes. Additional clarification regarding the severity of malnutrition is requested. History/Risk Factors: 71-year-old male presents to the ED with paresthesia of the hands and feet and struggling with gait. Medical history: No medical history noted. 06/26, H&P. Clinical Indicators: RD Consult Assessment: 07/02/22 Admitted with frequent syncope episodes, macrocytosis and malnutrition. Current BMI: 17.9 Height 5ft 10in weight 56.699kg standing scale. Nutrition Assessment: Intake: Fair; Percent consumed 50-75%. 68% average x past 7 meals; 75-100% of oral supplement. Physical findings underweight. Estimated Nutritional Needs in Kcals current weight: Energy formula for estimated nutritional needs: [address]. Jeor Equation: Energy needs 2250 Kcals; KCAL comment [id number] + 500 for weight gain. Estimated protein needs: current weight. Estimated protein range 1.2 -1.4 grams/kg. Estimated protein needs 67- 78 grams/day. Protein comment 1.2 -1.4g /kg r/t suspected malnutrition. Estimated fluid needs: Fluid formula 1ml/Kcal; Estimated Fluid needs 2250 mls/day. Predicted inadequate energy intake. H&P, 06/26 Patient also admits to poor appetite but claims that his weight has been stable which she is very thin built and cachectic. Treatment: General / healthful diet, Regular diet; Monitor PO intake and supplement acceptance. Dietary Consult: See above Supplements: Commercial beverage Ensure Enlive TID Please clarify the type of malnutrition, if known: [ X ] Moderate Protein-Calorie Malnutrition [ ] Severe Protein-Calorie Malnutrition [ ] Other condition, please specify [ ] Unable to Determine (Template Last Revised: November 2020) MTDD
[2022-07-04] MEDS ORDERED: MIDAZOLAM 2 MG/2 ML VIAL ONE (14:04)
[2022-07-04] MEDS ORDERED: WATER FOR INJECTION, STERILE 10 ML VIAL IV ONE (14:04)
[2022-07-04] MEDS ORDERED: fentaNYL (PF) 50 MCG/ML 2 ML AMP ONE (14:04)
[2022-07-04] MEDS ORDERED: ePHEDrine 50 MG/ML 1 ML VIAL ONE (14:04)
[2022-07-04] MEDS ORDERED: TRANEXAMIC ACID IN NACL,ISO-OS 1,000 MG/100 ML BAG ONE (14:04)
[2022-07-04] MEDS ORDERED: LIDOCAINE 2% INJ 20 MG/ML (2 ML VIAL) ONE (14:04)
[2022-07-04] MEDS ORDERED: SUCCINYLCHOLINE CHLORIDE 200 MG/10 ML VIAL IV ONE (14:04)
[2022-07-04] MEDS ORDERED: PROPOFOL 10 MG/ML 20 ML VIAL IV ONE (14:04)
[2022-07-04] MEDS ORDERED: KETAMINE 10 MG/ML 20 ML VIAL ONE (14:04)
[2022-07-04] MEDS ORDERED: SODIUM CHLORIDE 0.9% 100 ML with ceFAZolin 2 GM IV ONE ×2 (15:06)
[2022-07-04] MEDS ORDERED: THROMBIN (BOVINE) 5,000 UNIT VIAL TOPICAL ONE (15:49)
[2022-07-04] MEDS ORDERED: GELATIN SPONGE,ABSORB (LARGE) 1 EACH SPONGE TOPICAL ONE (15:49)
--- NOTE | 2022-07-04 16:16 | P.PN ---
Subjective Progress Note Date: 07/04/22 (delayed charting seen at 1030) Patient is a 71-year-old male with BPH who presented with gait instability. Patient was evaluated by neurology and orthopedic spine surgery. He was worked up for demyelinating disease however it was felt that is changes on brain are likely reflective of microvascular ischemia. He was also found to have spinal cord compression. During his hospital stay he developed sinus pauses. He was evaluated by cardiology who recommended avoidance of AV bartolo blocking agents and follow up in the outpatient setting. Imaging: MRI brain with contrast: Extensive white matter signal changes around the ventricles that is likely microvascular ischemia, demyelinating disease not excluded, small 1.5 cm cortical infarct left occipital lobe unchanged MRI cervical spine with contrast: Left paracentral focal disc herniation with moderate anterior thecal sac impression, cord compression and deformity, spinal canal stenosis Cervical and thoracic spine CT. Anterolisthesis of C4 on 5 ML marked degeneration of the uncovertebral joints, moderate degenerative disc disease MRI brain and C-spine: Spondylitic changes in the cervical spine with large area of abnormal signal no cervical 4 at C4 5 could be infarct versus demyelinating disease, no cord mass, left-sided C6 7 neuro foraminal impingement, extensive coalescent increased signal in the periventricular white matter in both cerebral hemispheres representing demyelinating disease or microvascular ischemia EEG: Normal weight/drowsy EEG Carotid Doppler: Moderate narrowing between 50 and 69% of the right internal carotid artery, mild narrowing 50% of the left internal carotid artery Echocardiogram: Technically difficult study, normal left ventricular dimensions and systolic function Patient seen and examined at bedside. Feeling anxious, No chest pain, no shortness of breath, no nausea. General: nontoxic, no distress, appears at stated age Derm: warm, dry Head: atraumatic, normocephalic, symmetric Eyes: EOMI, no lid lag, anicteric sclera Mouth: no lip lesion, mucus membranes moist Cardiovascular: S1S2 reg, no murmur, positive posterior tibial pulse bilateral, Lungs: CTA bilateral, no rhonchi, no rales , no accessory muscle use Abdominal: soft, nontender to palpation, no guarding, no appreciable org anomegaly Ext: no gross muscle atrophy, no edema, no contractures Neuro: CN II-XI grossly intact, + intrinsic hand muscle wasting, no tremors Psych: Alert, oriented, appropriate affect Assessment/plan: Cervical myelopathy with spinal stenosis at C4/5 Abnormal MRI brain- d/w Dr. Snyder likely microvascular changes Ataxia Syncopal episode 3 -CSF MS pannel negative - outpatient neuro follow-up - ASA - surgical intervention on 07/[address] pardo Moderate risk given help required for ADLS, no additional testing warranted at this time, Patient aware of elevated risk -Pain control -Gabapentin -PT/OT -continue with Decadron Macrocytic anemia -RBC folate 817 -Vitamin B12 722 -TSH 1.27 -Follow CBC Syncope wtih sinus pauses - cardio recs outpatient follow-up avoid AV bartolo blocking agents - Echo with EF 55-60% Tobacco abuse - cessation Leukocytosis, reactive -Follow CBC -Monitor finger profile closely Acute kidney injury, resolved Hyponatremia, resolved Metabolic acidosis, resolved DVT prophylaxis: SCDs Discussed with: Patient, nursing Anticipated discharge: pending clinical course Anticipated discharge place: pending clinical course A total of 25 minutes was spent on the care of this complex patient more than 50% of the time was spent in counseling and care coordination. Active Medications Generic Name Dose Route Start Last Admin Trade Name Freq PRN Reason Stop Dose Admin Acetaminophen 650 mg 06/26/22 20:11 07/04/22 10:45 Acetaminophen Tab 325 Mg Tab PO 650 mg Q6HR PRN Administration Mild Pain or Fever > 100.5 Dexamethasone Sodium Phosphate 4 mg 06/29/22 09:00 07/04/22 13:33 Dexamethasone Sod Phosphate 4 Mg/Ml 1 Ml Vial IVP Not Given Q6HR SHALONDA Gabapentin 100 mg 06/27/22 00:45 07/04/22 10:45 Gabapentin 100 Mg Cap PO 100 mg TID SHALONDA Administration Sodium Chloride 1,000 mls @ 75 mls/hr 06/27/22 14:45 07/04/22 10:51 Saline 0.9% IV Not Given .[id number] SHALONDA Tranexamic Acid/Sodium 100 mls @ 200 mls/hr 07/04/22 05:00 Chloride 1,000 mg/ IV Solution IVPB 07/05/22 00:01 ONCE PRN Pre-Op Tranexamic Acid/Sodium 100 mls @ 200 mls/hr 07/04/22 05:00 Chloride 1,000 mg/ IV Solution IVPB 07/05/22 00:01 ONCE PRN Pre-Op Naloxone HCl 0.2 mg 06/26/22 20:11 Naloxone 0.4 Mg/Ml 1 Ml Vial IV Q2M PRN Opioid Reversal Pantoprazole Sodium 40 mg 06/28/22 07:30 07/04/22 10:45 Pantoprazole 40 Mg Tablet PO 40 mg [id number] SHALONDA Administration Objective - Vital Signs Vital signs: Vital Signs Temp 97.3 F L 07/04/22 08:00 Pulse 64 07/04/22 13:14 Resp 16 07/04/22 13:14 BP 219/93 07/04/22 13:14 Pulse Ox 97 07/04/22 13:14 FiO2 Intake & Output 07/03/22 07/04/22 07/04/22 18:59 06:59 18:59 Intake Total 300 Output Total 1100 675 600 Balance -1100 -675 -300 Intake: IV 300 Output: Urine 1100 675 600 Other: Voiding Method Toilet Urinal Urinal Urinal - Labs CBC & Chem 7: 07/04/22 06:47 07/04/22 06:47 Labs: Abnormal Lab Results - Last 24 Hours (Table) 07/03/22 07/04/22 07/04/22 Range/Units 15:38 06:47 06:47 WBC 14.9 H 13.1 H (3.8-10.6) k/uL RBC 3.13 L 3.12 L (4.30-5.90) m/uL Hgb 10.7 L 10.6 L (13.0-17.5) gm/dL Hct 32.5 L 32.0 L (39.0-53.0) % MCV 104.1 H 102.8 H (80.0-100.0) fL Sodium 135 L (137-145) mmol/L BUN 45 H (9-20) mg/dL Glucose 114 H (74-99) mg/dL
[2022-07-04] MEDS ORDERED: SENNOSIDES-DOCUSATE SODIUM 1 EACH TAB PO PRN (17:20)
[2022-07-04] MEDS ORDERED: HYDROmorphone 0.5 MG/0.5 ML SYRINGE IVP PRN (17:20)
[2022-07-04] MEDS ORDERED: hydrALAZINE HCL 20 MG/ML 1 ML VIAL IVP ONE (17:48)
[2022-07-04] MEDS ORDERED: HYDROmorphone 0.5 MG/0.5 ML SYRINGE IVP ONE ×3 (18:06→18:37)
[2022-07-04] MEDS ORDERED: LABETALOL SYRINGE 5 MG/ML IVP ONE (18:07)
--- NOTE | 2022-07-04 18:53 | XR ---
EXAMINATION TYPE: XR cervical spine limited DATE OF EXAM: 07/04/2022 COMPARISON: NONE HISTORY: Surgery TECHNIQUE: 2 fluoroscopic images. 58 seconds fluoroscopy time. FINDINGS: There are 2 images which show placement of posterior rods and screws fusing the spine from the level of C2 to probably T1 vertebra. IMPRESSION: No complicating process seen.
[2022-07-04] MEDS: HYDROmorphone 1 MG/ML 1 ML SYRINGE IVP PRN (21:09)
[2022-07-05] MEDS: DEXAMETHASONE SOD PHOSPHATE 4 MG/ML 1 ML VIAL IVP SCH ×5 (00:19→23:17)
[2022-07-05] MEDS: HYDROmorphone 1 MG/ML 1 ML SYRINGE IVP PRN ×3 (00:19→20:50)
[2022-07-05] MEDS: HYDROcodone/APAP 5-325MG 1 EACH TAB PO PRN ×2 (05:02→12:14)
[2022-07-05 07:09] LABS: Glucose,Whole Blood 102 mg/dL (70-110)
[2022-07-05] MEDS: SODIUM CHLORIDE 0.9% 1,000 ML IV SCH ×2 (07:39→23:17)
[2022-07-05] MEDS: PANTOPRAZOLE 40 MG TABLET PO SCH (07:39)
[2022-07-05] MEDS: GABAPENTIN 100 MG CAP PO SCH ×3 (07:39→20:44)
[2022-07-05 08:53] LABS: HCT 33.9 % (39.6-50.0); HGB 10.9 g/dL (13.0-17.0); MCH 34.4 pg (27.0-32.0); MCHC 32.2 g/dL (32.0-37.0); MCV 106.9 fL (80.0-97.0); Mean Platelet Volume 11.2 fL (9.5-12.2); NRBC Per 100 WBC 0 /100 WBCS (0.0-0.0); Platelet Count 284 X 10*3/uL (140-440); RBC 3.17 X 10*6/uL (4.40-5.60); RDW 13.2 % (11.5-14.5)
[2022-07-05 09:00] LABS: African American GFR (CKD) 69.1 (60.0-200.0); BUN/Creat Ratio 33.5 Ratio (12.00-20.00); Blood Urea Nitrogen 40.2 mg/dL (9.0-27.0); Calcium 8.3 mg/dL (8.7-10.3); Magnesium 2.3 mg/dL (1.5-2.4); Non-African American GFR(CKD) 59.6 (60.0-200.0); Potassium 5.4 mmol/L (3.5-5.5)
--- NOTE | 2022-07-05 09:01 | CT ---
EXAMINATION TYPE: CT cervical spine wo con DATE OF EXAM: 07/05/2022 COMPARISON: CT 06/28/2022 HISTORY: s/p C2-T1 decompression and fusion. CT DLP: 482.9 mGycm Automated exposure control for dose reduction was used. TECHNIQUE: CT scan of the cervical spine is obtained without contrast, axial images are obtained, sagittal and c oronal reformatted images are also reviewed. FINDINGS: There has been interval posterior fusion from C2-T1. Artifact may limit evaluation. There is lucency within the soft tissues consistent with postop state. Allograft material is present posteriorly. Alig nment is improved as compared to preoperative exam, minimal retrolisthesis grade 1 C6-7 persists, ant erolisthesis C4-5 is improved. There is multilevel spondylosis. Loss of disc height at C4-5, C6-7 is again noted. There is multilevel laminectomy change. No evident spinal stenosis. Posterior drain is i n place. Coursing in a caudal direction towards the T1 level towards the left of midline posteriorly. Surgical glendy are present in the posterior skin. Subcutaneous edema is present. Small posterior d isc bulge present C4-5 Transpedicular screws at T1 breach the anterior cortex minimally and extends to the level of the post erior esophagus. Retained contrast material may represent secretions are present within the thoracic esophagus. Multilevel foraminal encroachment due to facet arthropathy and uncovertebral joint hypertr ophy again noted. Incidental bilateral pleural effusions noted to have developed in the interval. Ext ensive apical scarring again noted on the right, bilateral centrilobular emphysematous changes and pu lmonary fibrosis changes again seen. Difficult to exclude airspace disease left upper lobe versus ate lectasis. IMPRESSION: Postop findings as described. Correlate to exclude pneumonia, retained secretions in the esophagus, a spiration not excluded, correlate. Small bilateral pleural effusions noted.
--- NOTE | 2022-07-05 09:22 | P.PN ---
Subjective Progress Note Date: 07/05/22 Principal diagnosis: 1. 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 UE weakness with paresthesias and hyperreflexia 3. LE weakness with paresthesias and hyperreflexia Patient was seen at bedside about to be transported to CT for scan of cervical spine to check for postoperative surgical alignment of hardware. Patient says he has been a lot of pain since surgery yesterday. Patient denies chest pain, fever, shortness breath, nausea, vomiting, change in vision. Patient denies saddle anesthesia. Objective - Vital Signs Vital signs: Vital Signs Temp 98.6 F 07/05/22 07:27 Pulse 107 H 07/05/22 07:27 Resp 18 07/05/22 07:27 BP 148/76 07/05/22 07:47 Pulse Ox 96 07/05/22 07:27 FiO2 Intake & Output 07/04/22 07/05/22 07/05/22 18:59 06:59 18:59 Intake Total 1800 450 Output Total 970 1000 Balance 830 -550 Weight 56.699 kg 56.699 kg Intake: IV 1800 450 Output: Drainage 0 HEMOVAC LOCATED NEAR 0 INCISION Urine 820 1000 Uretheral (Terrell) 600 Estimated Blood Loss 150 Other: Voiding Method Urinal Indwelling Catheter - Exam Soft cervical collar is in place and optifoam dressing is present on posterior cervical spine. drain is present. Patient does have some tenderness to palpation along the posterior cervical spine. Nontender to palpation throughout rest exam. Patient does have sensation in the bilateral upper and lower extremities. Patient is a bit hyperreflexive on examining both the upper and lower extremities. Patient does have range of motion of the cervical spine, however it is present with some mild pain. Patient does have some limited range of motion in hip flexion/extension and shoulder forward elevation. Patient has full range of motion and knee flexion/extension dorsi/plantar flexion bilaterally and elbow flexion/extension and wrist flexion/extension. motor exam 4-/5 in UE in all motor groups. 4-/5 in all LE motor groups. Radial pulses intact bilaterally. Cap refill under 3 seconds in his upper extremities digits. Positive Domitila's bilaterally. Positive clonus bilaterally. Negative Homans bilaterally. - Labs CBC & Chem 7: 07/05/22 05:33 07/05/22 05:33 Assessment and Plan Assessment: 1. 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 UE weakness with paresthesias and hyperreflexia 3. LE weakness with paresthesias and hyperreflexia Plan: 1. 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 Patient stable at bedside this morning with soft cervical collar present in drain and dressing in place to posterior cervical spine. Patient is about to leave for postoperative computed tomography scan of cervical spine checking for postsurgical alignment of hardware. We'll continue to follow patient while in hospital 2. Appreciate medical management 3. Pain management - Tylenol; gabapentin; [place]; dilaudid 4. DVT prophylaxis - mechanical. 5. GI prophylaxis - Protonix 6. Encourage incentive spirometer use 7. PT/OT - weightbearing as tolerated with walker and assistance 8. Appreciate consult Time with Patient: Less than 30
[2022-07-05 09:46] LABS: Basophils # (A) 0.05 X 10*3/uL (0.00-0.10); Basophils % (A) 0.2 %; Eosinophils # (A) 0 X 10*3/uL (0.04-0.35); Eosinophils % (A) 0 %; Immature Grans, Automated 0.6 %; Lymphocytes # (A) 0.72 X 10*3/uL (0.90-5.00); Lymphocytes % (A) 2.3 %; Monocytes # (A) 3.07 X 10*3/uL (0.20-1.00); Monocytes % (A) 9.9 %; Neutrophils # (A) 27.06 X 10*3/uL (1.80-7.70)
[2022-07-05 09:47] LABS: Acanthocytes 2+; Macrocytosis (M) 2+
--- NOTE | 2022-07-05 11:30 | P.PN ---
Subjective Progress Note Date: 07/05/22 Principal diagnosis: syncope Hospital Course: Patient is a 71-year-old male with BPH who presented with gait instability. Patient was evaluated by neurology and orthopedic spine surgery. He was worked up for demyelinating disease however it was felt that is changes on brain are likely reflective of microvascular ischemia. He was also found to have spinal cord compression. During his hospital stay he developed sinus pauses. He was evaluated by cardiology who recommended avoidance of AV bartolo blocking agents and follow up in the outpatient setting. Imaging: MRI brain with contrast: Extensive white matter signal changes around the ventricles that is likely microvascular ischemia, demyelinating disease not excluded, small 1.5 cm cortical infarct left occipital lobe unchanged MRI cervical spine with contrast: Left paracentral focal disc herniation with moderate anterior thecal sac impression, cord compression and deformity, spinal canal stenosis Cervical and thoracic spine CT. Anterolisthesis of C4 on 5 ML marked degeneration of the uncovertebral joints, moderate degenerative disc disease MRI brain and C-spine: Spondylitic changes in the cervical spine with large area of abnormal signal no cervical 4 at C4 5 could be infarct versus demyelinating disease, no cord mass, left-sided C6 7 neuro foraminal impingement, extensive coalescent increased signal in the periventricular white matter in both cerebral hemispheres representing demyelinating disease or microvascular ischemia EEG: Normal weight/drowsy EEG Carotid Doppler: Moderate narrowing between 50 and 69% of the right internal carotid artery, mild narrowing 50% of the left internal carotid artery Echocardiogram: Technically difficult study, normal left ventricular dimensions and systolic function Subjective: Patient seen and examined at bedside. No acute events overnight. Patient is status post surgery. He claims that he is having difficulty with eating because of the c-collar. He denies any significant pain. He denies any chest pain, shortness of breath, abdominal pain. He currently has a Terrell catheter in place. Pertinent positives and negatives as discussed above, a complete review of systems was performed and all other systems are negative. Vitals Signs Reviewed. General: nontoxic, no distress, appears at stated age, thin-appearing Derm: warm, dry Head: atraumatic, normocephalic, symmetric, neck in c-collar with a drain (serosanguineous) Eyes: EOMI, no lid lag, anicteric sclera Mouth: no lip lesion, mucus membranes moist Cardiovascular: S1S2 reg, no murmur Lungs: CTA bilateral, no rhonchi, no rales , no accessory muscle use Abdominal: soft, nontender to palpation, no guarding, no appreciable organomegaly Ext: no gross muscle atrophy, no edema, no contractures Neuro: CN II-XI grossly intact Psych: Alert, oriented, appropriate affect Assessment and Plan: Cervical myelopathy with spinal stenosis at C4/5 Abnormal MRI brain- d/w Dr. Snyder likely microvascular changes Ataxia Syncopal episode 3 -Status post surgery, postop day 1 -CSF MS pannel negative - outpatient neuro follow-up - ASA -Pain control -Gabapentin -PT/OT -continue with Decadron Macrocytic anemia -RBC folate 817 -Vitamin B12 722 -TSH 1.27 -Follow CBC Syncope wtih sinus pauses - cardio recs outpatient follow-up avoid AV bartolo blocking agents - Echo with EF 55-60% Tobacco abuse - cessation Leukocytosis, reactive -Follow CBC Acute kidney injury, resolved Hypernatremia, resolved Metabolic acidosis, resolved DVT prophylaxis: SCDs Discussed with: Patient, nursing Anticipated discharge: pending clinical course Anticipated discharge place: pending clinical course Objective - Vital Signs Vital signs: Vital Signs Temp 98.6 F 07/05/22 07:27 Pulse 107 H 07/05/22 07:27 Resp 18 07/05/22 08:00 BP 148/76 07/05/22 07:47 Pulse Ox 96 07/05/22 07:27 FiO2 Intake & Output 07/04/22 07/05/22 07/05/22 18:59 06:59 18:59 Intake Total 1800 450 Output Total 970 1000 Balance 830 -550 Weight 56.699 kg 56.699 kg Intake: IV 1800 450 Output: Drainage 0 HEMOVAC LOCATED NEAR 0 INCISION Urine 820 1000 Uretheral (Terrell) 600 Estimated Blood Loss 150 Other: Voiding Method Urinal Indwelling Catheter Indwelling Catheter - Labs CBC & Chem 7: 07/05/22 05:33 07/05/22 05:33 Labs: Abnormal Lab Results - Last 24 Hours (Table) 07/05/22 07/05/22 Range/Units 05:33 05:33 WBC 31.10 H (4.50-10.00) X 10*3/uL RBC 3.17 L (4.40-5.60) X 10*6/uL Hgb 10.9 L (13.0-17.0) g/dL Hct 33.9 L (39.6-50.0) % MCV 106.9 H (80.0-97.0) fL MCH 34.4 H (27.0-32.0) pg Immature Gran # 0.20 H (0.00-0.04) X 10*3/uL Neutrophils # 27.06 H (1.80-7.70) X 10*3/uL Lymphocytes # 0.72 L (0.90-5.00) X 10*3/uL Monocytes # 3.07 H (0.20-1.00) X 10*3/uL Eosinophils # 0 L (0.04-0.35) X 10*3/uL BUN 40.2 H (9.0-27.0) mg/dL Est GFR (CKD-EPI)NonAf 59.6 L (60.0-200.0) BUN/Creatinine Ratio 33.50 H (12.00-20.00) Ratio Calcium 8.3 L (8.7-10.3) mg/dL
--- NOTE | 2022-07-05 11:36 | FL ---
Fluoroscopy HISTORY: Cervical decompression and effusion 58 seconds fluoroscopy time supplied to the referring clinician. 2 intraoperative C-arm images docum ent the procedure. See dictated report from orthopedic surgery.
[2022-07-05] MEDS: HYDROcodone/APAP 10-325MG 1 EACH TAB PO PRN ×2 (17:00→23:17)
[2022-07-05] MEDS: CYCLOBENZAPRINE 5 MG TAB PO PRN (20:50)
[2022-07-06] MEDS: HYDROmorphone 1 MG/ML 1 ML SYRINGE IVP PRN ×2 (02:06→10:24)
[2022-07-06] MEDS: CYCLOBENZAPRINE 5 MG TAB PO PRN (02:06)
[2022-07-06] MEDS: HYDROcodone/APAP 10-325MG 1 EACH TAB PO PRN ×3 (04:54→17:27)
[2022-07-06] MEDS: DEXAMETHASONE SOD PHOSPHATE 4 MG/ML 1 ML VIAL IVP SCH ×3 (06:17→17:24)
[2022-07-06] MEDS: PANTOPRAZOLE 40 MG TABLET PO SCH (07:42)
[2022-07-06] MEDS: GABAPENTIN 100 MG CAP PO SCH ×3 (07:42→22:20)
--- NOTE | 2022-07-06 10:54 | P.PN ---
Subjective Progress Note Date: 07/06/22 Principal diagnosis: syncope Hospital Course: Patient is a 71-year-old male with BPH who presented with gait instability. Patient was evaluated by neurology and orthopedic spine surgery. He was worked up for demyelinating disease however it was felt that is changes on brain are likely reflective of microvascular ischemia. He was also found to have spinal cord compression. During his hospital stay he developed sinus pauses. He was evaluated by cardiology who recommended avoidance of AV bartolo blocking agents and follow up in the outpatient setting. Imaging: MRI brain with contrast: Extensive white matter signal changes around the ventricles that is likely microvascular ischemia, demyelinating disease not excluded, small 1.5 cm cortical infarct left occipital lobe unchanged MRI cervical spine with contrast: Left paracentral focal disc herniation with moderate anterior thecal sac impression, cord compression and deformity, spinal canal stenosis Cervical and thoracic spine CT. Anterolisthesis of C4 on 5 ML marked degeneration of the uncovertebral joints, moderate degenerative disc disease MRI brain and C-spine: Spondylitic changes in the cervical spine with large area of abnormal signal no cervical 4 at C4 5 could be infarct versus demyelinating disease, no cord mass, left-sided C6 7 neuro foraminal impingement, extensive coalescent increased signal in the periventricular white matter in both cerebral hemispheres representing demyelinating disease or microvascular ischemia EEG: Normal weight/drowsy EEG Carotid Doppler: Moderate narrowing between 50 and 69% of the right internal carotid artery, mild narrowing 50% of the left internal carotid artery Echocardiogram: Technically difficult study, normal left ventricular dimensions and systolic function Repeat C spine CT - post op changes, possibly pneumonia Subjective: Patient seen and examined at bedside. No acute events overnight. He is still having difficulty with meals due to c-collar. He has more pain in his neck today. He denies any new numbness or weakness in his arms or legs. He denies any chest pain, shortness of breath, abdominal pain. Terrell was discontinued yesterday. Pertinent positives and negatives as discussed above, a complete review of systems was performed and all other systems are negative. Vitals Signs Reviewed. General: nontoxic, no distress, appears at stated age, thin-appearing Derm: warm, dry Head: atraumatic, normocephalic, symmetric, neck in c-collar with a drain (serosanguineous) Eyes: EOMI, no lid lag, anicteric sclera Mouth: no lip lesion, mucus membranes moist Cardiovascular: S1S2 reg, no murmur Lungs: CTA bilateral, no rhonchi, no rales , no accessory muscle use Abdominal: soft, nontender to palpation, no guarding, no appreciable organomegaly Ext: no gross muscle atrophy, no edema, no contractures Neuro: CN II-XI grossly intact Psych: Alert, oriented, appropriate affect Assessment and Plan: Cervical myelopathy with spinal stenosis at C4/5 Abnormal MRI brain- d/w Dr. Snyder likely microvascular changes Ataxia Syncopal episode 3 -Status post surgery, postop day 2 -CSF MS pannel negative - outpatient neuro follow-up - ASA -Pain control -Gabapentin -PT/OT -continue with Decadron Macrocytic anemia -RBC folate 817 -Vitamin B12 722 -TSH 1.27 -Follow CBC Syncope wtih sinus pauses - cardio recs outpatient follow-up avoid AV bartolo blocking agents - Echo with EF 55-60% Tobacco abuse - cessation Leukocytosis -likely reactive and 2/2 steroids -Follow CBC pending -if trending up, will consider abx Acute kidney injury, resolved Hypernatremia, resolved Metabolic acidosis, resolved DVT prophylaxis: SCDs Discussed with: Patient, nursing Anticipated discharge: pending clinical course Anticipated discharge place: pending clinical course Objective - Vital Signs Vital signs: Vital Signs Temp 98.0 F 07/06/22 07:31 Pulse 56 L 07/06/22 07:31 Resp 18 07/06/22 08:00 BP 162/96 07/06/22 07:31 Pulse Ox 92 L 07/06/22 07:31 FiO2 Intake & Output 07/05/22 07/06/22 07/06/22 18:59 06:59 18:59 Intake Total 240 Output Total 250 1075 Balance -250 -835 Intake: Oral 240 Output: Drainage 100 150 HEMOVAC LOCATED NEAR 100 150 INCISION Urine 150 925 Other: Voiding Method Indwelling Catheter # Voids 1 - Labs CBC & Chem 7: 07/05/22 05:33 07/05/22 05:33
[2022-07-06 11:17] LABS: Basophils % (A) 0 %; Eosinophils % (A) 0 %; HCT 34.8 % (39.0-53.0); HGB 11.5 gm/dL (13.0-17.5); Lymphocytes # (A) 1.2 k/uL (1.0-4.8); Lymphocytes % (A) 6 %; MCH 33.9 pg (25.0-35.0); MCV 102.9 fL (80.0-100.0); Macrocytosis Slight; Monocytes # (A) 1.3 k/uL (0-1.0); Monocytes % (A) 6 %; Neutrophils # (A) 17.6 k/uL (1.3-7.7); Neutrophils % (A) 86 %; Platelet Count 248 k/uL (150-450); RBC 3.38 m/uL (4.30-5.90); WBC 20.5 k/uL (3.8-10.6)
[2022-07-06] MEDS: SODIUM CHLORIDE 0.9% 1,000 ML IV SCH (11:27)
--- NOTE | 2022-07-06 12:05 | P.PN ---
Subjective Progress Note Date: 07/06/22 Principal diagnosis: 1. 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 UE weakness with paresthesias and hyperreflexia 3. LE weakness with paresthesias and hyperreflexia Patient was seen at bedside this morning lying in semirecumbent position. Patient says he has tried to do some therapy on his own. Patient says he would like to get up and sit in chair at bedside today. Patient did seem anxious about recovery process from surgery. Patient says he has been a lot of pain since surgery. Patient denies chest pain, fever, shortness breath, nausea, vom iting, change in vision. Patient denies saddle anesthesia. Objective - Vital Signs Vital signs: Vital Signs Temp 98.0 F 07/06/22 07:31 Pulse 56 L 07/06/22 07:31 Resp 18 07/06/22 08:00 BP 162/96 07/06/22 07:31 Pulse Ox 92 L 07/06/22 07:31 FiO2 Intake & Output 07/05/22 07/06/22 07/06/22 18:59 06:59 18:59 Intake Total 240 Output Total 250 1075 Balance -250 -835 Intake: Oral 240 Output: Drainage 100 150 HEMOVAC LOCATED NEAR 100 150 INCISION Urine 150 925 Other: Voiding Method Indwelling Catheter # Voids 1 - Exam Soft cervical collar is in place and optifoam dressing is present on posterior cervical spine. drain is present. Patient does have some tenderness to palpation along the posterior cervical spine. Nontender to palpation throughout rest exam. Patient does have sensation in the bilateral upper and lower extremities. Patient is a bit hyperreflexive on examining both the upper and lower extremities. Patient does have range of motion of the cervical spine, however it is present with some mild pain. Patient does have some limited range of motion in hip flexion/extension and shoulder forward elevation. Patient has full range of motion and knee flexion/extension dorsi/plantar flexion bilaterally and elbow flexion/extension and wrist flexion/extension. motor exam 4-/5 in UE in all motor groups. 4-/5 in all LE motor groups. Radial pulses intact bilaterally. Cap refill under 3 seconds in his upper extremities digits. Positive Domitila's bilaterally. Positive clonus bilaterally. Negative Homans bilaterally. - Labs CBC & Chem 7: 07/06/22 11:01 07/05/22 05:33 Labs: Abnormal Lab Results - Last 24 Hours (Table) 07/06/22 Range/Units 11:01 WBC 20.5 H (3.8-10.6) k/uL RBC 3.38 L (4.30-5.90) m/uL Hgb 11.5 L (13.0-17.5) gm/dL Hct 34.8 L (39.0-53.0) % MCV 102.9 H (80.0-100.0) fL Neutrophils # 17.6 H (1.3-7.7) k/uL Monocytes # 1.3 H (0-1.0) k/uL Assessment and Plan Assessment: 1. 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 UE weakness with paresthesias and hyperreflexia 3. LE weakness with paresthesias and hyperreflexia - Postoperative day #2 status post C2-T1 decompression and fusion Plan: 1. 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 Patient stable at bedside this morning with soft cervical collar present in drain and dressing in place to posterior cervical spine. Recommend patient to continue with therapy daily. Maintain a soft cervical collar. We'll continue to follow patient while in hospital 2. Appreciate medical management 3. Pain management - Tylenol; gabapentin; [place]; dilaudid 4. DVT prophylaxis - mechanical 5. GI prophylaxis - Protonix 6. Encourage incentive spirometer use 7. PT/OT - weightbearing as tolerated with walker and assistance; soft c-collar on at all times. May be removed to check incision Time with Patient: Less than 30
[2022-07-07] MEDS: DEXAMETHASONE SOD PHOSPHATE 4 MG/ML 1 ML VIAL IVP SCH ×5 (00:09→23:50)
[2022-07-07] MEDS: SODIUM CHLORIDE 0.9% 1,000 ML IV SCH ×2 (03:22→11:55)
[2022-07-07] MEDS: HYDROcodone/APAP 5-325MG 1 EACH TAB PO PRN ×3 (09:24→23:51)
[2022-07-07] MEDS: PANTOPRAZOLE 40 MG TABLET PO SCH (09:24)
[2022-07-07] MEDS: GABAPENTIN 100 MG CAP PO SCH ×3 (09:24→21:04)
[2022-07-07] MEDS: CYCLOBENZAPRINE 5 MG TAB PO PRN (09:24)
--- NOTE | 2022-07-07 11:33 | P.PN ---
Subjective Progress Note Date: 07/07/22 Principal diagnosis: Cervical spondylotic myelopathy severe cervical stenosis Poss. demyelinating disease UE/LE weakness Pt s/e. He has been doing fairly well over the weekend and was able to get up with assistance to the bathroom. He states pain in his neck that is sometimes severe but overall doing better with meds. Today he states his RUE has weakness compared to yesterday and before and he has difficulty in lifting his right shoulder now compared to yesterday. He states he does not think he did anything to the shoulder to the neck over the weekend. He states the right arm was actually better than the left arm but now it is worse. Denies any new numbness/tingling. Denies any sesation loss of the RUE. States no bowel or bladder issues. States no vision changes, [place], N, V, F, C, SOB, CP at this time. Objective - Vital Signs Vital signs: Vital Signs Temp 98.3 F 07/07/22 07:58 Pulse 90 07/07/22 07:58 Resp 15 07/07/22 07:58 BP 128/96 07/07/22 07:58 Pulse Ox 95 07/07/22 07:58 FiO2 Intake & Output 07/06/22 07/07/22 07/07/22 18:59 06:59 18:59 Output Total 500 Balance -500 Output: Urine 500 Other: Voiding Method Urinal Incontinent - Exam Physical Exam: -Patient is alert and oriented 3 appears well-nourished well-hydrated is in no acute distress. They do not appear septic. -There is TTP about the incision on the neck, no flucctuence, no hematoma, no drainage -Drian in place 60 cc out -Incision is CDI, no EEE, no drainage -Upper extremities show 4- out of 5 strength in all major muscle groups. Except--RUE: In C5 there is 2/5 in deltoid and bicep. Bicep function is preserved and pt can supinate with 3/5 strength. Brachioradialis preserved and there is 4/5 function. WE/WF shows 4/5 strength w/o deviation from baseline. Tricep shows 4+/5 on the right. Baseline intrinsic muscle function of the hand still. -Lower extremities with 4- out of 5 strength in all major muscle groups No focal changes here, same to pre op except some de-conditioining -There is FROM that is painless of the b/l UE and LE in all major joints. RUE does have some shoulder limitations that are likely chronic in ROM but no dislocation or subluxation at this time. -They are intact to light touch sensation in C5 to T1 and L2 to S1 nerve distribution. Specifically C5 is intact b/l to LT. -DTR 3/4 all upper and lower extremities--still showing some signs of hyperreflexia but better than pre op -Patient has palpable distal pulses all 4 ext -Compartments are soft and compressible. -Patient shows a negative Duran's -Positive Contreras's b/l still but less brisk than pre op -showing 10 beats clonus b/l LE but improved since pre op -Neg babinski b/l Cranial nerves II through XII are grossly intact. - Neurologic Neurologic: Present: CNII-XII intact - Psychiatric Psychiatric: Present: A&O x's 3 (CT of C spine reviewed post op shows hardware in good position with better alignment of neck. No evidnce of early migration. All hardware in safe position. 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 -Activity: Ambulate QID, OOB all meals, up and about, limit lifting bending twisting to less than 5 lbs. Use walker or cane if needed for stability. -Daily PT/OT, increase ambulation strength and balance. -Soft cervical collar at all times -Sling to RUE when up and about to support shoulder and prevent pseudosubluxation. PROM and AROM OK with right shoulder, retraining of muscles RUE with PT -Pain control: Adequate at this time -Meds: reviewed -GI ppx: senna, Miralax -DC wiggins when up and about, bedside commode if needed -DVT PPX: Mech, TEds, SCDs, Cont Heparin -Hygiene: Shower today. Maintain dressing clean and dry. Meticulous cleaning after BMs away from incision site -Drains: Maintain for now. Record output -Encourage IS 10x/hr -Dispo: Pending
--- NOTE | 2022-07-07 12:00 | P.PN ---
Subjective Progress Note Date: 07/07/22 Principal diagnosis: syncope Hospital Course: Patient is a 71-year-old male with BPH who presented with gait instability. Patient was evaluated by neurology and orthopedic spine surgery. He was worked up for demyelinating disease however it was felt that is changes on brain are likely reflective of microvascular ischemia. He was also found to have spinal cord compression. Now s/p surgery. During his hospital stay he developed sinus pauses. He was evaluated by cardiology who recommended avoidance of AV bartolo blocking agents and follow up in the outpatient setting. Imaging: MRI brain with contrast: Extensive white matter signal changes around the ventricles that is likely microvascular ischemia, demyelinating disease not excluded, small 1.5 cm cortical infarct left occipital lobe unchanged MRI cervical spine with contrast: Left paracentral focal disc herniation with moderate anterior thecal sac impression, cord compression and deformity, spinal canal stenosis Cervical and thoracic spine CT. Anterolisthesis of C4 on 5 ML marked degeneration of the uncovertebral joints, moderate degenerative disc disease MRI brain and C-spine: Spondylitic changes in the cervical spine with large area of abnormal signal no cervical 4 at C4 5 could be infarct versus demyelinating disease, no cord mass, left-sided C6 7 neuro foraminal impingement, extensive coalescent increased signal in the periventricular white matter in both cerebral hemispheres representing demyelinating disease or microvascular ischemia EEG: Normal weight/drowsy EEG Carotid Doppler: Moderate narrowing between 50 and 69% of the right internal carotid artery, mild narrowing 50% of the left internal carotid artery Echocardiogram: Technically difficult study, normal left ventricular dimensions and systolic function Repeat C spine CT - post op changes, possibly pneumonia Subjective: Patient seen and examined at bedside. No acute events overnight. He claims that his right arm is weaker compared to before. He denies any chest pain, shortness of breath, abdominal pain. Pertinent positives and negatives as discussed above, a complete review of systems was performed and all other systems are negative. Vitals Signs Reviewed. General: nontoxic, no distress, appears at stated age, thin-appearing Derm: warm, dry Head: atraumatic, normocephalic, symmetric, neck in c-collar with a drain (serosanguineous) Eyes: EOMI, no lid lag, anicteric sclera Mouth: no lip lesion, mucus membranes moist Cardiovascular: S1S2 reg, no murmur Lungs: CTA bilateral, no rhonchi, no rales , no accessory muscle use Abdominal: soft, nontender to palpation, no guarding, no appreciable o rganomegaly Ext: no gross muscle atrophy, no edema, no contractures Neuro: CN II-XI grossly intact Psych: Alert, oriented, appropriate affect Assessment and Plan: Cervical myelopathy with spinal stenosis at C4/5 Abnormal MRI brain- d/w Dr. Snyder likely microvascular changes Ataxia Syncopal episode 3 -Status post surgery -CSF MS pannel negative - outpatient neuro follow-up - ASA -Pain control -Gabapentin -PT/OT -continue with Decadron Macrocytic anemia -RBC folate 817 -Vitamin B12 722 -TSH 1.27 - stable hgb Syncope wtih sinus pauses - cardio recs outpatient follow-up avoid AV bartolo blocking agents - Echo with EF 55-60% Tobacco abuse - cessation Leukocytosis - downtrending -likely reactive and 2/2 steroids -if trending up, will consider abx Acute kidney injury, resolved Hypernatremia, resolved Metabolic acidosis, resolved DVT prophylaxis: SCDs Discussed with: Patient, nursing Anticipated discharge: likely tomorrow Anticipated discharge place: rehab Objective - Vital Signs Vital signs: Vital Signs Temp 98.3 F 07/07/22 07:58 Pulse 90 07/07/22 07:58 Resp 15 07/07/22 07:58 BP 128/96 07/07/22 07:58 Pulse Ox 95 07/07/22 07:58 FiO2 Intake & Output 07/06/22 07/07/22 07/07/22 18:59 06:59 18:59 Output Total 500 Balance -500 Output: Urine 500 Other: Voiding Method Urinal Incontinent - Labs CBC & Chem 7: 07/06/22 11:01 07/05/22 05:33
--- NOTE | 2022-07-07 14:44 | P.PN ---
Subjective Progress Note Date: 07/07/22 Principal diagnosis: 1. 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 UE weakness with paresthesias and hyperreflexia 3. LE weakness with paresthesias and hyperreflexia Patient was seen at bedside this morning lying in semirecumbent position. Patient says he has worked with physical therapy daily. Patient says he is able to sit up in the chair at bedside yesterday with assistance. Patient is still concerned about his right arm and not being able to move it at this time. Patient did seem anxious about recovery process from surgery. Patient says most of the pain is localized to his neck at this time. Patient denies chest pain, fever, shortness breath, nausea, vomiting, change in vision. Patient denies saddle anesthesia. Objective - Vital Signs Vital signs: Vital Signs Temp 98.3 F 07/07/22 07:58 Pulse 90 07/07/22 07:58 Resp 15 07/07/22 07:58 BP 128/96 07/07/22 07:58 Pulse Ox 95 07/07/22 07:58 FiO2 Intake & Output 07/06/22 07/07/22 07/07/22 18:59 06:59 18:59 Output Total 500 Balance -500 Output: Urine 500 Other: Voiding Method Urinal Incontinent - Exam Soft cervical collar is in place and foam tape is present over dressing. drain is present. drain removed. Minimal serosanguineous output. Patient does have some tenderness to palpation along the posterior cervical spine. Nontender to palpation throughout rest exam. Patient does have sensation in the bilateral upper and lower extremities. Patient is a bit hyperreflexive on examining both the upper and lower extremities. Patient does have range of motion of the cervical spine, however it is present with some mild pain. Patient does have some limited range of motion in hip flexion/extension. Patient has no active ROM in RUE on elbow flexion/ext and shoulder forward elev, abduction and int/ext rot ation. Patient does have sensation throughout the right upper extremity. Right upper extremity is lukewarm to touch. Patient does have full passive range of motion in the right upper extremity and elbow flexion/extension and shoulder elevation, abduction, internal/external rotation. motor exam 4-/5 in LUE in all motor groups. 4-/5 in all LE motor groups. 4-/5 in wrist flexion/ext on RUE. Radial pulses intact bilaterally. Cap refill under 3 seconds in his upper extremities digits. Negative Homans bilaterally. - Labs CBC & Chem 7: 07/06/22 11:01 07/05/22 05:33 Labs: Abnormal Lab Results - Last 24 Hours (Table) 07/06/22 Range/Units 11:01 WBC 20.5 H (3.8-10.6) k/uL RBC 3.38 L (4.30-5.90) m/uL Hgb 11.5 L (13.0-17.5) gm/dL Hct 34.8 L (39.0-53.0) % MCV 102.9 H (80.0-100.0) fL Neutrophils # 17.6 H (1.3-7.7) k/uL Monocytes # 1.3 H (0-1.0) k/uL Assessment and Plan Assessment: 1. 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 UE weakness with paresthesias and hyperreflexia 3. LE weakness with paresthesias and hyperreflexia 4. C5 incomplete weakness RUE - Postoperative day #3 status post C2-T1 decompression and fusion Plan: 1. 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 Patient stable at bedside this morning with soft cervical collar present and dressing/drain in place. Drain removed at bedside and dressing changed. Minimal drainage during removal. Incision CDI. Chi well aligned. 4x4's and foam tape placed over incision. Recommend patient to continue with therapy daily. Sling ordered for RUE. Maintain a soft cervical collar. Plan for discharge to [facility], Thursday07/10/2022 2. Appreciate medical management 3. Pain management - Tylenol; gabapentin; [place]; dilaudid 4. DVT prophylaxis - mechanical 5. GI prophylaxis - Protonix 6. Encourage incentive spirometer use 7. PT/OT - weightbearing as tolerated with walker and assistance; soft c-collar on at all times. May be removed to check incision 8. Discharge planning - Discharge to [facility], 07/10/2022 Time with Patient: Less than 30
[2022-07-08] MEDS: DEXAMETHASONE SOD PHOSPHATE 4 MG/ML 1 ML VIAL IVP SCH ×3 (06:01→14:50)
[2022-07-08] MEDS: SODIUM CHLORIDE 0.9% 1,000 ML IV SCH ×2 (06:01→13:58)
[2022-07-08] MEDS: PANTOPRAZOLE 40 MG TABLET PO SCH (08:13)
[2022-07-08] MEDS: GABAPENTIN 100 MG CAP PO SCH ×3 (08:13→21:51)
[2022-07-08] MEDS: HYDROcodone/APAP 5-325MG 1 EACH TAB PO PRN (08:29)
--- NOTE | 2022-07-08 12:30 | P.PN ---
Subjective Patient seen and examined at bedside. Patient denied chest pain shortness of breath nausea vomiting fevers or chills. Patient continues to have upper and lower extremity neuropathy and pain. Patient also admits to back pain. Patient is awaiting rehab. Objective - Vital Signs Vital signs: Vital Signs Temp 97.4 F L 07/08/22 06:50 Pulse 80 07/08/22 06:50 Resp 18 07/08/22 06:50 BP 120/77 07/08/22 06:50 Pulse Ox 94 L 07/08/22 06:50 FiO2 Intake & Output 07/07/22 07/08/22 07/08/22 18:59 06:59 18:59 Intake Total 200 Output Total 20 Balance -20 200 Weight 56.699 kg Intake: Oral 200 Output: Drainage 20 HEMOVAC LOCATED NEAR 20 INCISION Other: Voiding Method Urinal Urinal Urinal Incontinent Diaper Incontinent # Voids 2 - Exam General: [non toxic], [no distress], [older than stated age] Derm: [warm], [dry] Head: [atraumatic], [normocephalic], [symmetric] Eyes: [EOMI], [no lid lag], [anicteric sclera] Mouth: [no lip lesion], [mucus membranes moist] Cardiovascular: [S1S2 reg], [no murmur], [positive posterior tibial pulse bilateral], Lungs: [CTA bilateral], [no rhonchi, no rales] , [no accessory muscle use] Abdominal: [soft], [ nontender to palpation], [no guarding], [no appreciable organomegaly] Ext: [decreased right upper extremity strength ], [no edema], [no contractures] Neuro: decreased right upper extremity strength Psych: [Alert], [oriented], [appropriate affect] - Labs CBC & Chem 7: 07/06/22 11:01 07/05/22 05:33 Assessment and Plan Assessment: Assessment/Plan Cervical myelopathy with spinal stenosis at C4/5 Abnormal MRI brain- d/w Dr. Snyder likely microvascular changes Ataxia Syncopal episode 3 -Status post surgery -CSF MS pannel negative - outpatient neuro follow-up - ASA -Pain control -Gabapentin -PT/OT -continue with Decadron Macrocytic anemia -RBC folate 817 -Vitamin B12 722 -TSH 1.27 - stable hgb Syncope wtih sinus pauses - cardio recs outpatient follow-up avoid AV bartolo blocking agents - Echo with EF 55-60% Tobacco abuse - cessation Leukocytosis - downtrending -likely reactive and 2/2 steroids -if trending up, will consider abx Acute kidney injury, resolved Hypernatremia, resolved Metabolic acidosis, resolved DVT prophylaxis: SCDs Discussed with: Patient, nursing Anticipated discharge: likely today or tomorrow pending insurance auth Anticipated discharge place: rehab
--- NOTE | 2022-07-08 15:33 | P.PN ---
Subjective Progress Note Date: 07/08/22 Principal diagnosis: 1. 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 UE weakness with paresthesias and hyperreflexia 3. LE weakness with paresthesias and hyperreflexia Patient was seen at bedside this morning lying in semirecumbent position. Patient says he has been trying to constantly move his RUE. He says he is still unable to raise his right shoulder or flex/extend his right elbow under his own power. Patient says he was able to sit up in the chair at bedside yesterday with assistance. Patient says most of the pain is localized to his neck at this time. Patient denies chest pain, fever, shortness breath, nausea, vomiting, change in vision. Patient denies saddle anesthesia. Objective - Vital Signs Vital signs: Vital Signs Temp 97.8 F 07/08/22 13:57 Pulse 92 07/08/22 13:57 Resp 22 07/08/22 13:57 BP 128/80 07/08/22 13:57 Pulse Ox 90 L 07/08/22 13:57 FiO2 Intake & Output 07/07/22 07/08/22 07/08/22 18:59 06:59 18:59 Intake Total 200 Output Total 20 Balance -20 200 Weight 56.699 kg Intake: Oral 200 Output: Drainage 20 HEMOVAC LOCATED NEAR 20 INCISION Other: Voiding Method Urinal Urinal Urinal Incontinent Diaper Incontinent # Voids 2 - Exam Soft cervical collar is in place and foam tape is present over dressing. drain is present. drain removed. Minimal serosanguineous output. Patient does have some tenderness to palpation along the posterior cervical spine. Nontender to palpation throughout rest exam. Patient does have sensation in the bilateral upper and lower extremities. Patient is a bit hyperreflexive on examining both the upper and lower extremities. Patient does have range of motion of the cervical spine, however it is present with some mild pain. Patient does have some limited range of motion in hip flexion/extension. Patient has no active ROM in RUE on elbow flexion/ext and shoulder forward elev, abduction and int/ext rotation. Patient does have sensation throughout the right upper extremity. Right upper extremity is lukewarm to touch. Patient does have full passive range of motion in the right upper extremity and elbow flexion/extension and shoulder elevation, abduction, internal/external rotation. motor exam 4-/5 in LUE in all motor groups. 4-/5 in all LE motor groups. 4-/5 in wrist flexion/ext on RUE. Radial pulses intact bilaterally. Cap refill under 3 seconds in his upper extremities digits. Negative Homans bilaterally. - Labs CBC & Chem 7: 07/06/22 11:01 07/05/22 05:33 Assessment and Plan Assessment: 1. 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 UE weakness with paresthesias and hyperreflexia 3. LE weakness with paresthesias and hyperreflexia 4. C5 incomplete weakness RUE - Postoperative day #4 status post C2-T1 decompression and fusion Plan: 1. 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 Patient stable at bedside this morning with soft cervical collar present and dressing in place. Recommend patient to continue with therapy daily. Sling ordered for RUE. Maintain a soft cervical collar. Plan for discharge to [facility], Thursday07/09/2022 2. Appreciate medical management 3. Pain management - Tylenol; gabapentin; [place]; dilaudid 4. DVT prophylaxis - mechanical 5. GI prophylaxis - Protonix 6. Encourage incentive spirometer use 7. PT/OT - weightbearing as tolerated with walker and assistance; soft c-collar on at all times. May be removed to check incision 8. Discharge planning - Discharge to [facility], 07/09/2022 Time with Patient: Less than 30
[2022-07-08] MEDS: HYDROcodone/APAP 10-325MG 1 EACH TAB PO PRN (21:55)
[2022-07-09] MEDS: DEXAMETHASONE SOD PHOSPHATE 4 MG/ML 1 ML VIAL IVP SCH ×2 (03:55→12:57)
[2022-07-09] MEDS: SODIUM CHLORIDE 0.9% 1,000 ML IV SCH (03:56)
[2022-07-09] MEDS: HYDROcodone/APAP 10-325MG 1 EACH TAB PO PRN ×2 (06:11→13:13)
[2022-07-09] MEDS: GABAPENTIN 100 MG CAP PO SCH (07:30)
[2022-07-09] MEDS: PANTOPRAZOLE 40 MG TABLET PO SCH (07:30)
[2022-07-09] MEDS: CYCLOBENZAPRINE 5 MG TAB PO PRN (07:38)
[2022-07-09 09:00] LABS: Basophils # (A) 0.01 X 10*3/uL (0.00-0.10); Basophils % (A) 0.1 %; Eosinophils # (A) 0 X 10*3/uL (0.04-0.35); Eosinophils % (A) 0 %; HCT 33.2 % (39.6-50.0); Immature Grans, Automated 1.2 %; Lymphocytes # (A) 0.52 X 10*3/uL (0.90-5.00); Lymphocytes % (A) 2.9 %; MCH 33.7 pg (27.0-32.0); MCHC 33.1 g/dL (32.0-37.0); MCV 101.8 fL (80.0-97.0); Mean Platelet Volume 10.8 fL (9.5-12.2); Monocytes # (A) 1.52 X 10*3/uL (0.20-1.00); Monocytes % (A) 8.4 %; NRBC Per 100 WBC 0 /100 WBCS (0.0-0.0); Neutrophils # (A) 15.72 X 10*3/uL (1.80-7.70); Neutrophils % (A) 87.4 %; Platelet Count 294 X 10*3/uL (140-440); RBC 3.26 X 10*6/uL (4.40-5.60); RDW 13.6 % (11.5-14.5); WBC 17.99 X 10*3/uL (4.50-10.00)
[2022-07-09 09:06] LABS: African American GFR (CKD) 69.1 (60.0-200.0); Albumin 3.1 g/dL (3.8-4.9); Albumin/Globulin Ratio 1.26 (1.60-3.17); BUN/Creat Ratio 44.08 Ratio (12.00-20.00); Blood Urea Nitrogen 52.9 mg/dL (9.0-27.0); Carbon Dioxide 22.9 mmol/L (20.0-27.5); Globulin 2.5 g/dL (1.6-3.3); Non-African American GFR(CKD) 59.6 (60.0-200.0); Potassium 4.8 mmol/L (3.5-5.5); Total Bilirubin 0.4 mg/dL (0.30-1.20); Total Protein 5.5 g/dL (6.2-8.2)
--- NOTE | 2022-07-09 09:28 | P.PN ---
Subjective Progress Note Date: 07/09/22 Principal diagnosis: 1. 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 UE weakness with paresthesias and hyperreflexia 3. LE weakness with paresthesias and hyperreflexia Patient seen and examined at bedside. Patient is currently resting in bed. He continues to present with the inability to raise his right shoulder or flex/extend his right elbow under his own power. He reports that he has been using his left arm to assist with placing his right arm on the bedside table and to attempt ROM exercises of the right upper extremity. Patient states he has b een using a urinal and getting up to [facility] [place] when needed. He states he did sit in the chair yesterday with assistance from staff. Patient is looking forward to go to rehab to get back on his feet again. Patient denies any fevers/chills, shortness of breath, or chest pain. Objective - Vital Signs Vital signs: Vital Signs Temp 98.6 F 07/09/22 01:08 Pulse 95 07/09/22 01:08 Resp 20 07/09/22 07:42 BP 139/98 07/09/22 01:08 Pulse Ox 91 L 07/09/22 01:08 FiO2 Intake & Output 07/08/22 07/09/22 07/09/22 18:59 06:59 18:59 Intake Total 300 300 Output Total 500 Balance 300 -200 Intake: Oral 300 300 Output: Urine 500 Other: Voiding Method Urinal Urinal Urinal # Voids 4 4 - Exam Physical Examination General: The patient is awake and alert, in no acute distress Skin: Skin is warm and dry with no obvious rashes or lesions. Hairy patches absent, no dorsal skin dimples, no cafe au lait spots, and Eye: Pupils are equal, round and reactive to light, extra-ocular movements are intact; there is normal conjunctiva bilaterally. Neck: The neck is supple, there is no tenderness and ROM intact. Cardiovascular: There is a regular rate and rhythm. No murmur, rub or gallop is appreciated. Respiratory: Lungs are clear to auscultation, respirations are non-labored, breath sounds are equal. Gastrointestinal: Soft, non-distended, non-tender abdomen . Back: There is no tenderness to palpation in the midline, paralumbar, parathoracic or buttocks region. There is no obvious deformity . Musculoskeletal: ROM limited secondary to pain. Patient does have full passive range of motion in the right upper extremity and elbow flexion/extension and shoulder elevation, abduction, internal/external rotation. Motor exam 4-/5 in LUE in all motor groups. 4-/5 in all LE motor groups. 4-/5 in wrist flexion/ext on RUE. Neurological: CN 2-12 intact. Patient is hyperflexic in bilateral upper extremities. Movement and coordination equal and intact. Sensory exam to light touch intact C5-T1 and intact from L2-S1. Reflexes 2/4 in bilateral upper and lower extremities. Negative Hoffmans, babinski, and clonus signs. Psychiatric: Cooperative, appropriate mood & affect, normal judgment. - Labs CBC & Chem 7: 07/09/22 05:56 07/09/22 05:56 Assessment and Plan Assessment: Assessment: 1. 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 UE weakness with paresthesias and hyperreflexia 3. LE weakness with paresthesias and hyperreflexia 4. C5 incomplete weakness RUE - Postoperative day #5 status post C2-T1 decompression and fusion Plan: Plan: 1. Appreciate medical management 2. Pain management - Tylenol; gabapentin; [place]; dilaudid 3. DVT prophylaxis - mechanical 4. GI prophylaxis - Protonix 5. Encourage incentive spirometer use 6. PT/OT - weightbearing as tolerated with walker and assistance; soft c-collar on at all times. May be removed to check incision 7. Discharge planning - Discharge to [facility], 07/09/2022 *I reviewed and discussed this case with my attending Dr. Odonnell, whom has reviewed this chart and films and is in agreement with assessment and plan of care as outlined above. I have personally seen and examined the patient, performed the documentation and the assessment and plan as written. Number of minutes spent on the visit: 20m.
[2022-07-09 11:22] VITALS: BP 147/63; PULSE 97; RESP 18; TEMP 97.4
--- NOTE | 2022-07-09 13:19 | P.DS ---
Providers Date of admission: 06/30/22 11:28 Expected date of discharge: 07/09/22 Attending physician: Steven Call MD Consults: 06/27/22 00:36 Consult Physician Routine Consulting Provider: Joleen Altamirano Consult Reason/Comments: gaiit instabilty Do you want consulting provider notified?: Yes, Notify in am 06/28/22 00:49 Consult Physician Routine Consulting Provider: Jose Odonnell Consult Reason/Comments: Abnormal MRI Cervical spine Do you want consulting provider notified?: Yes 06/30/22 13:38 Consult to Anesthesia Routine Consulting Provider: Anesthesia,Services Consult Reason/Comments: lumbar puncture per neurology Primary care physician: Stated None Hospital Course: Admitting Diagnosis: Syncope Discharge Diagnosis: Cervical myelopathy with spinal stenosis at C4/5 Ataxia Macrocytic anemia Syncope with sinus pauses tobacco abuse SAPPHIRE resolved 71-year-old male with BPH Patient was visiting and neurology office today as he's been dealing with p aresthesia of the hands and feet for over 12 years now is also struggling with gait for about 5 years now as he can't walk without leaning against wall and furniture as he loses balance. He also admits to multiple episodes of syncope over the past month. And today while he was at the neurology office he had another episode of syncope which she can't recall. No reported seizure-like activity loss of bladder or bowel control or biting tongue. Patient denies any associated palpitations or shortness of breath he literally doesn't remember what happened and he felt nothing before or after the episode. EMS was notified and he was brought into the hospital for evaluation. Blood work was done showed mAcrocytosis without anemia, elevated renal function creatinine without baseline, CT of the brain showed no acute pathology Patient denies any recent hospitalization or traveling. He denies any fevers or chills denies any coughing chest pain or trouble breathing denies any abdominal pain nausea vomiting or diarrhea. Patient does admit to heavy smoking denies any illicit drugs or alcohol. Patient also admits to poor appetite but claims that his weight has been stable which she is very thin built and cachectic Clinical Course: Cervical myelopathy with spinal stenosis at C4/5 Abnormal MRI brain- d/w Dr. Snyder likely microvascular changes Ataxia Syncopal episode 3 -Status post surgery -CSF MS pannel negative - outpatient neuro follow-up - ASA -Pain control -Gabapentin -PT/OT -IV steroids transitioned to oral Macrocytic anemia -RBC folate 817 -Vitamin B12 722 -TSH 1.27 - stable hgb Syncope wtih sinus pauses - cardio recs outpatient follow-up avoid AV bartolo blocking agents - Echo with EF 55-60% Tobacco abuse - cessation Leukocytosis - downtrending -likely reactive and 2/2 steroids -if trending up, will consider abx Acute kidney injury, resolved Hypernatremia, resolved Metabolic acidosis, resolved Physical exam: General: [non toxic], [no distress], [appears at stated age] Derm: [warm], [dry] Head: [atraumatic], [normocephalic], [symmetric] Eyes: [EOMI], [no lid lag], [anicteric sclera] Mouth: [no lip lesion], [mucus membranes moist] Cardiovascular: [S1S2 reg], [no murmur], [positive posterior tibial pulse bilateral], Lungs: [CTA bilateral], [no rhonchi, no rales] , [no accessory muscle use] Abdominal: [soft], [ nontender to palpation], [no guarding], [no appreciable organomegaly] Ext: [gross muscle atrophy], [no edema], [no contractures] Neuro: [ CN II-XI grossly intact], ] Psych: [Alert], [oriented], [appropriate affect] Diet regular Activity as tolerated Condition fair Disposition SNF Follow up with PCP within one week Follow-up with [facility] 10 days Patient Condition at Discharge: Fair Plan - Discharge Summary Discharge Rx Participant: Yes New Discharge Prescriptions: New cefaDROXiL [Duricef] 500 mg PO Q12HR 5 Days #10 cap methylPREDNISolone Dose Pack [Medrol Dose Pack] 4 mg PO DIRECTED #21 tab Gabapentin 300 mg PO TID #21 cap HYDROcodone/APAP 5-325MG [[place] 5-325] 1 tab PO Q6HR PRN #24 tab PRN Reason: Pain Cyclobenzaprine [Flexeril] 5 mg PO TID #21 tablet Pantoprazole [Protonix] 40 mg PO AC-BRKFST #30 tab Sennosides-Docusate Sodium [Senokot-S] 2 each PO DAILY PRN #60 tab PRN Reason: Constipation Acetaminophen Tab [Tylenol] 650 mg PO Q6HR PRN tab PRN Reason: Mild Pain Or Fever > 100.5 Discontinued Ibuprofen [Motrin Ib] 600 mg PO BID Discharge Medication List Cyclobenzaprine [Flexeril] 5 mg PO TID #21 tablet 07/08/22 [Rx] Gabapentin 300 mg PO TID #21 cap 07/08/22 [Rx] HYDROcodone/APAP 5-325MG [[place] 5-325] 1 tab PO Q6HR PRN #24 tab 07/08/22 [Rx] cefaDROXiL [Duricef] 500 mg PO Q12HR 5 Days #10 cap 07/08/22 [Rx] Acetaminophen Tab [Tylenol] 650 mg PO Q6HR PRN tab 07/09/22 [Rx] Pantoprazole [Protonix] 40 mg PO AC-BRKFST #30 tab 07/09/22 [Rx] Sennosides-Docusate Sodium [Senokot-S] 2 each PO DAILY PRN #60 tab 07/09/22 [Rx] methylPREDNISolone Dose Pack [Medrol Dose Pack] 4 mg PO DIRECTED #21 tab 07/09/22 [Rx] Follow up Appointment(s)/Referral(s): None,Stated [Primary Care Provider] - 1-2 days Jose Odonnell DO [Doctor of Osteopathic Medicine] - 10 Days Patient Instructions/Handouts: Cervical Spinal Stenosis (ED), Cervical Spinal Stenosis (GEN) Activity/Diet/Wound Care/Special Instructions: Spine Discharge and Recovery Instructions Date of Surgery: 07/04/2022 Diagnosis: 1. 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 UE weakness with paresthesias and hyperreflexia 3. LE weakness with paresthesias and hyperreflexia Procedure: C2-T1 decompression and fusion Medications: See medication list All medication refills should be obtained through your primary care doctor or your clinic spine surgeon. Please discuss prescription refills at your follow up appointment. Do not call the hospital for medication refills. Dressing: Leave your dressing in place for a total of 5 days post operatively. Then you may remove your dressing and leave open to air. Keep the area clean and if not able to keep area clean, then cover with sterile gauze and tape. Showering: You may shower 3 days after your procedure allowing soap and water to run over incision. Do not scrub. Do not soak. Blot dry. Follow up: Please confirm a follow up appointment with your surgeon 3 weeks post operatively. Please make an appointment to follow up with your PCP in 1-2 weeks after surgery for evaluation 3 phase, 3-week plan POST OP WEEKS 1-3 1. Lifting/carrying/pushing/pulling limited to less than 5 pounds. 2. Do not sit for longer than 15 minutes at one time. Get up and walk around. Prolonged sitting is NOT advised. If you lay down, see if you can tolerate laying down on you front (belly side) 3. Walk for periods of 15 minutes = 1 mile but no longer; do it multiple times times each day. 4. Ice your low back after activity. POST OP WEEKS 3-6 1. Lifting limited to less than 20 pounds. 2. Do not sit for longer than 30 minutes at a time. Frequently change positions. Use a sit-to stand workstation or take frequent breaks from sitting if you have returned to work. 3. Walk for 30 minutes each day. If possible, do these three or more times a day POST OP WEEKS 6+ At your 6-week appointment we will give you a physical therapy referral to focus on a core stabilization and strengthening program. You should also work on leg & buttock strengthening, hamstring & quadriceps stretching, and continue a low impact aerobic activity program such as swimming, walking, or riding a stationary bicycle. During the initial 6 weeks after your surgery, you are at the highest risk of re-injuring your spine. You should generally avoid BLTs (bending, lifting and twisting combination motions) and follow the above guidelines to reduce the chance of reinjury. You can anticipate post op appointments in our office at approximately 3 weeks and 6 weeks after your surgery. INCISION CARE: If your incision is not draining you do NOT need to cover it with a dressing. Keep your incision clean, dry and intact. In most cases, we apply skin glue, glendy or sutures to the incision at the time of surgery. This will be like a crust or have the appearance of a scab and will fall off in time on its own. The stitches or glendy need to be removed at 3 weeks post op appointment. You may begin to shower 3 days after surgery (this allows the glue to dewitt well). However, please avoid scrubbing the incision site or peeling off any of the skin glue. This will ensure optimal healing of your incision. Also, during this time avoid soaking the incision area in water - this includes swimming pools, hot tubs or baths. No ointments, lotions or oils on the incision until your surgeon allows. Leave glendy, sutures or glue in place. Neurological dysfunction that comes on suddenly can also be a sign of a stroke. Below some common symptoms of a stroke are listed: B - balance difficulty such as sudden onset walking or leaning to one side - NEW E - eye problem such as sudden double vision or trouble seeing on one side - NEW F - Facial weakness or numbness on one side - NEW A - Arm or leg weakness or numbness on one side - NEW S - Slurred speech or difficulty with word finding - NEW T - Time is BRAIN! Call 911 as soon as you recognize these symptoms Diet: Consume a regular diet rich in vegetables and lean protein such as chicken or fish. You should consume in a ratio of approximately 20% fats|40% carbohydrates|40%protein. Vegetables, sweet potatoes, brown rice or quinoa are examples of good carbohydrates. Chips, white bread, cookies and sweets/sugar are examples of bad carbohydrates. Limit your bad carbs, go wild with good car bs. "Life's Simple 7" Guidelines as per [place] [employer] These will help you reclaim your life after surgery and ginner helper in your recovery, keeping in mind your restrictions. (1) Get Active. Physical activity can help people lose weight, control high blood pressure and cholesterol, feel emotionally better, and sleep better. (2) Control Cholesterol. Avoid a diet high in saturated fat, trans fat, & cholesterol. Limit whole milk & cream, ice cream, butter, egg yolks, processed meats (like sausage and hot dogs), and fatty meats. Choose healthy foods that are low in saturated fat, trans fat and cholesterol which include: Fruits and vegetables, fiber rich grain products (like whole grain pasta and brown rice), lean meat such as chicken, fish, nuts, seeds, and legumes. (3) Eat Better. Eat small portions. Shop at the grocery with a list and do not stray from it. Tips for a healthy diet include: Limit sodium intake to less than 1500mg daily, avoid prepackaged, processed, and fast foods, choose a diet rich in fruits, vegetables, and whole grain, high fiber foods, and limit saturated & cholesterol in your diet. (4) Manage Blood Pressure. If you have high blood pressure, you should have a cuff at home so that you can check your blood pressure regularly. Be sure you have a good cuff. An arm one is generally better than a wrist one. Bring the cuff to a doctor's appointment to validate that the measurements that your cuff are taking are accurate. Take your blood pressure twice daily when you are sitting down and relaxing. Record the numbers in a log and bring this log with you to your doctors' appointments. (5) Lose Weight if your BMI is above 25. A healthy BMI is between 19-25. To calculate Your BMI, you may use a Standard BMI Calculator on the NIH BMI website: <www.nhlbi.nih.gov/guidelines/obesity/BMI/bmicalc.htm>. Weigh oneself daily. If you are overweight, set a goal to lose weight. A pound a week loss if needed is a good target. (6) Reduce Blood Sugar. Limit foods and liquids with "added sugars." (Added sugars include sucrose, fructose, glucose, maltose, dextrose, high fructose corn syrup, corn syrup, concentrated fruit juice and honey). (7) Stop Smoking. If you smoke, quitting smoking is one of the best things that you can do for your health. Smoking increases your risk of heart attack, stroke, and peripheral vascular disease, which is a build-up of plaque in your arteries. Please discard all the cigarettes and lighters in your house. Have a plan for what you will do when you have the urge to smoke. Direct and second- hand smoke shortens your life as well as the lives of your family, friends and others around you. For your health and the health of those around you, please consider quitting! Proper Bending Body Mechanics: Maintain a wide stance with one foot slightly in front of the other. Keep your back straight. Bend utilizing the strength in your hips and knees. Do not bend at the waist. Maintain the lifted object at your waist-level close to your body. Avoid lifting weight that causes immediately pain or pain anywhere in the body afterwards. Smoking/Nicotine If there was ever one thing that you could do to increase your overall health, decrease your risk of cardiovascular problems by about 39% the second you make the choice, it is to STOP SMOKING. Your body's most instant gratification is the second you stop smoking. We have all heard the studies, read the articles but it is true, smoking is extremely bad for your overall health, and moreover it is detrimental to your bone health. Nicotine, IN ANY FORM, kills bone cells, prevents your body from healing fractures, and significantly prolongs healing after surgery. In spine surgery specifically, it increases your risk of not healing your bones to create a fusion and increases your risk of having a revision surgery due to this up to 60%. I know it is hard. I know it feels impossible. But there are ways. Take control of your life. We are here to help you through it. And when you are ready, ask us and we can direct you to help if you desire. Use the START Plan to Quit Smoking (please visit the Helpguide.org website listed below for more information): S = Set a quit date. Choose a date within the next 2 weeks, so you have enough time to prepare without losing your motivation to quit. If you mainly smoke at work, quit on the weekend, so you have a few days to adjust to the change. T = Tell family, friends, and co-workers that you plan to quit. Let your friends and family in on your plan to quit smoking and tell them you need their support and encouragement to stop. Look for a quit thomas who wants to stop smoking as well. You can help each other get through the rough times. A = Anticipate and plan for the challenges you'll face while quitting. Most people who begin smoking again do so within the first 3 months. You can help yourself make it through by preparing ahead for common challenges, such as nicotine withdrawal and cigarette cravings. R = Remove cigarettes and other tobacco products from your home, car, and work. Throw away all your cigarettes (no emergency pack!), lighters, ashtrays, and matches. Wash your clothes and freshen up anything that smells like smoke. S hampoo your car, clean your drapes and carpet, and steam your furniture. T = Talk to your doctor about getting help to quit. Your doctor can prescribe medication to help with withdrawal and suggest other alternatives. If you can't see a doctor, you can get many products over the counter at your local pharmacy or grocery store, including the nicotine patch, nicotine lozenges, and nicotine gum. Resources for Quitting Smoking: <https://www.[place].gov/documents/[facility]/Quit_Tobacco_Resources_for_patients_313 480_7.pdf> Supplementation: Take recommended dosages of Vitamin D and Calcium to help fortify your bones and help them to heal. See your health maintenance packet for dosages and recommended levels. DVT/VTE prophylaxis: You will be given compression stockings from the hospital. Wear these daily for the first two weeks after surgery. You may take them off at night. You may be prescribed a medication to help thin your blood. Take this as directed. If you are not prescribed this medication, early and frequent ambulation has been shown to be the best prophylaxis to deep vein thrombosis and sequelae related to this event. Discharge/Stand Alone Forms: [facility] Instructions Discharge Disposition: TRANSFER TO SNF/ECF
--- NOTE | 2022-07-10 07:59 | P.OP ---
Date of Procedure: 07/04/22 Preoperative Diagnosis: 1. Cervical spondylotic myelopathy 2. UE weakness 3. LE weakness 4. complex medical patient with multiple comorbid conditions Postoperative Diagnosis: 1. Cervical spondylotic myelopathy 2. UE weakness 3. LE weakness 4. complex medical patient with multiple comorbid conditions Procedure(s) Performed: 1. C2-T1 posteriorlateral instrumented fusion (78638, [id number]) 2. Segmental instrumentation C2-T1 (81927) 3. C2-C7 bilateral laminectomy, partial medial facetectomy and foraminotomies (64326, [id number]) 4. Use of intraoperative neuromonitoring Implants: -Sims screw and hermelinod system posterior cervical -MagnatOs -Autograft -Allograft Anesthesia: GETA Surgeon: Jose Odonnell Occupational Therapy Assist #1: Hamilton Ramsey (Was presented and assisted in all aspects of the case from positioning to decompression hardware placement closure and dressing placement) Estimated Blood Loss (ml): 200 IV fluids (ml): 1,300 Urine output (ml): 250 Pathology: none sent Condition: stable Disposition: PACU Indications for Procedure: 71-year-old male who presented with complaints of unsteady gait recent falls more frequent falls weakness in upper extremities and lower extremities as well as neck pain was seen and evaluated in the hospital. He was worked up by medicine and neurology orthopedic surgery spine surgery pulmonology and cardiology. The patient and up having MRIs of his brain and C-spine as well as his thoracic spine area is images showed severe compression within the cervical spine spondylosis as well as stenosis. He is having myelomalacia changes within the cervical spine. Brain scan showed demyelinating process or possible ischemic events that were chronic. There are no acute fractures or traumatic issues with the cervical spine however there was degenerative spondylolisthesis which is contributing to the stenosis as well. The patient exhibited cervical spondylotic myelopathy findings with hyperreflexia upper extremities lateral Domitila's clonus in bilateral lower extremities as well as upper extremities. We discussed different options for the patient was started on Decadron lumbar puncture was performed to look for demyelinating processes and he was extensively worked up by the treatment team. After further discussion with the treatment team as well as the patient was decided that a decompression and fusion of the cervical spine would serve the best for mechanical decompression of the cervical neck due to the severe stenosis in the spondylotic myelopathy of the patient was presenting with. This was discussed extensively with the patient and after much consideration the patient agreed that he would like this to be done. We discussed risks and benefits as outlined in the risk review and he was willing to proceed with the procedure. Description of Procedure: The patient was seen and examined in the preoperative area. All preoperative protocols were followed. Informed consent was obtained risks and benefits of the procedure were discussed at length. Risks including bleeding infection damage to the surrounding tissue and risk of reoperation were discussed with the patient. Risk of anesthesia up to and including was a discussed with the patient. These are outlined in the risk review. They were willing to accept these risks and all of the risks of surgery. The patient was given a weight- based dose of antibiotics in the form of2 g Ancef. The patient was seen and evaluated by the anesthesia team who deemed them fit for surgery. The site was marked, the patient was willing to proceed with the procedure. The patient was transferred to the operative suite by the Department of anesthesia. They were then drifted off to sleep by the department anesthesia and GETA was performed. The patient tolerated this well. [Terrell catheter was placed by nursing staff, atraumatically]. Sharma head clamp was placed in optimal position and secured.Once confirmation of lines and ventilation the patient was transferred to a prone Tony table with Sharma hogshead liner. Carefully. All bony prominences including wrists, elbows, axilla, chest, hips, and thighs, and feet were padded very well. Special attention was paid to the genitalia and these were padded accordingly. SCDs were placed on bilateral lower extremities and were connected. Arms were well padded and placed tucked at his side well-padded thumbs down. Once in position, again we confirmed good ventilation capabilities and that lines were running appropriately. The patient's posterior cervical spine was then exposed. 1010s were placed outlining the incision site. Standard alcohol was used to clean the incision site and allowed to dry. C-arm was used to biomark the patient and confirm level for incision which was marked with a skin marker. Operative briefing was performed with all teams and everyone in agreement to proceed. The patient was then prepped and draped in a normal sterile fashion. Timeout was then performed and all parties were in agreement with the procedure to be performed. midline skin incision was made over the previously bowel marked area and dissection taken down over the spinous processes of C2 through T2. Subperiosteal dissection was then taken out over the lamina of C2 through T2 is well defined the lateral masses at each level facet joints as well as the transverse process of T1. We dissected out C2 to allow for visualization for placement of C2 screws. [place] 4 was used for blunt dissection over the posterior arch of C2 into the pedicle region and used to palpate the medial border of the pedicle. This was then held in position and under lateral fluoroscopic guidance the lookback coordinator hole was made in the C2 pedicle. This was followed by sequential drilling of 2 mm of the time until the desired length was achieved under lateral fluoroscopy. Once this was achieved the screw was selected and placed and had good purchase. We then repeated this on the contr alateral side without any issues. We then proceeded with placement of lateral mass screws a high-speed bur was used to make a lookback coordinator hole followed by a drill we then palpated the holes for a good bottom and all holes with the bottom. Screws were then placed in the lateral masses from C3 through C6. We then turned our attention to the thoracic spine at T1 lookback coordinator hole was made in the pedicle and under AP fluoroscopy a pedicle finder was advanced into the pedicle. We then tapped this and placed a screw that was measured into this. AP and lateral imaging confirmed good placement of hardware. We then sized and selected rods these rods were then bent to shape and placed set screws were placed and final tightened and the position. We then decorticated all the facet joints with a high-speed bur. We then performed bilateral laminectomy partial medial facetectomy and foraminotomy at C2 through C7 using high-speed bur and Kerrison rongeurs. Motors were run before and after decompression and medial articular pressure was maintained at 80 mmHg throughout motors were stable foreign after with good motor output. SSEPs also remained stable with no EMG spikes. Once decompression was accomplished we thoroughly irrigated the wound with 3 L of antibiotic irrigation followed by 3 L of gentamicin irrigation followed by 3 L of normal sterile saline. We then placed Surgicel over the dura we packed autograft allograft and Vitoss in the posterior lateral gutters bilaterally. We then placed a cross-link. This was secured and final tightened. All screws were final tightened. We then placed 2 g of vancomycin deep within the wound a deep drain was placed in a proceeded with closure. The fascia was closed with #1 PDS in a [id number] fashion was followed by 0 PDS simple fashion in the deep subcu tissue 2-0 Vicryl, superficial subcu tissue and glendy in the skin. The wound edges approximated very well. The wound was then cleaned and dressed sterilely with operative foam dressing drain sponge and Tegaderm. Drain was secured into position and had good output. The patient was transferred back to their hospital bed atraumatically. [Drain continued to hold suction and were in good position]. Patient was then awakened and extubated by the department of anesthesia having tolerated the procedure very well with no complications. They were transferred to the postoperative care unit in stable condition.
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
== END 2022-07-09 13:01 | DRG 472 ==
LOC: EC 15:16 → 4SSUR 20:11 → OBSVTOIN 06-30 11:28
PROVIDERS: ADMIT Internal Medicine; ATTEND Internal Medicine
PROC: 009U3ZX Drainage of Spinal Canal, Percutaneous Approach, Diagnostic (ICD-10-PCS; 2022-07-01)
PROC: 0RG2071 Fusion of 2 or more Cervical Vertebral Joints with Autologous Tissue Substitute, Posterior Approach, Posterior Column, Open Approach (ICD-10-PCS; principal; 2022-07-04 15:15)
PROC: 0RG4071 Fusion of Cervicothoracic Vertebral Joint with Autologous Tissue Substitute, Posterior Approach, Posterior Column, Open Approach (ICD-10-PCS; principal; 2022-07-04 15:15)
PROC: 4A11X4G Monitoring of Peripheral Nervous Electrical Activity, Intraoperative, External Approach (ICD-10-PCS; principal; 2022-07-04 15:15)
PROC: 00NW0ZZ Release Cervical Spinal Cord, Open Approach (ICD-10-PCS; principal; 2022-07-04 15:15)
DX: M47.12 Other spondylosis with myelopathy, cervical region (principal); E44.0 Moderate protein-calorie malnutrition; R64 Cachexia; N17.9 Acute kidney failure, unspecified; E87.0 Hyperosmolality and hypernatremia; E87.1 Hypo-osmolality and hyponatremia; E87.20 Acidosis, unspecified; Z68.1 Body mass index [BMI] 19.9 or less, adult; G95.89 Other specified diseases of spinal cord; M50.021 Cervical disc disorder at C4-C5 level with myelopathy; G37.9 Demyelinating disease of central nervous system, unspecified; R55 Syncope and collapse; M43.12 Spondylolisthesis, cervical region; M48.02 Spinal stenosis, cervical region; G62.9 Polyneuropathy, unspecified; I44.0 Atrioventricular block, first degree; T38.0X5A Adverse effect of glucocorticoids and synthetic analogues, initial encounter; D72.829 Elevated white blood cell count, unspecified; D53.9 Nutritional anemia, unspecified; I49.5 Sick sinus syndrome; H70.92 Unspecified mastoiditis, left ear; J44.9 Chronic obstructive pulmonary disease, unspecified; E86.0 Dehydration; M62.549 Muscle wasting and atrophy, not elsewhere classified, unspecified hand; F17.210 Nicotine dependence, cigarettes, uncomplicated; N40.0 Benign prostatic hyperplasia without lower urinary tract symptoms; F19.11 Other psychoactive substance abuse, in remission; Z77.098 Contact with and (suspected) exposure to other hazardous, chiefly nonmedicinal, chemicals; R29.6 Repeated falls; Z86.73 Personal history of transient ischemic attack (TIA), and cerebral infarction without residual deficits; Z79.899 Other long term (current) drug therapy; Z71.6 Tobacco abuse counseling; Z91.81 History of falling; Z86.13 Personal history of malaria; V43.93 Unspecified car occupant injured in collision with pick-up truck in traffic accident; Z86.19 Personal history of other infectious and parasitic diseases
CPT/HCPCS: 36415; 62270; 70450; 70551; 70552; 71046; 72040; 72100; 72125; 72128; 72141; 72142; 80048; 80053; 80320; 81003; 82040; 82042; 82140; 82306; 82607; 82746; 82747; 82784; 82945; 83036; 83605; 83735; 83916; 84100; 84157; 84443; 84484; 85025; 85027; 85610; 85730; 86618; 86850; 86900; 86901; 89050; 93005; 93306; 93880; 95816; 96361; 96365; 96366; 96375; 99152; 99285

== ENCOUNTER 2022-07-22 14:33 | Emergency (ER) | payer MEDICARE ==
[2022-07-22] MEDS ORDERED: SODIUM CHLORIDE 0.9% 1,000 ML IV ONE (15:05)
--- NOTE | 2022-07-22 15:30 | ED ---
General Adult HPI - General Chief complaint: Extremity Problem,Nontraumatic Stated complaint: infection Time Seen by Provider: 07/22/22 14:40 Source: patient, EMS, RN notes reviewed, old records reviewed Mode of arrival: EMS Limitations: physical limitation - History of Present Illness Initial comments: This is a 71-year-old male who presents emergency Department with a past history of neck surgery on June 30. Patient comes in today because it was noted that his little right forearm was swollen and mildly edematous. Patient denies any pain there. Patient denies any new complaints. Patient denies any fever chills or cough. Patient denies any chest pain or palpitations. Patient denies any difficulty breathing. Patient's abdominal pain patient denies nausea vomiting diarrhea. Patient states he doesn't eat or drink as much as she probably should. - Related Data Home Medications Medication Instructions Recorded Confirmed Cyclobenzaprine [Flexeril] 5 mg PO TID@0900,1300,2100 07/22/22 07/22/22 Gabapentin 300 mg PO TID@0900,1300,2100 07/22/22 07/22/22 Lactose-Reduced Food [Ensure Plus] 1 can PO TID@0900,1300,2100 07/22/22 07/22/22 Lactulose [Constulose] 10 gm PO BID 07/22/22 07/22/22 Omeprazole [PriLOSEC] 20 mg PO DAILY 07/22/22 07/22/22 Sennosides-Docusate Sodium 2 tab PO DAILY PRN 07/22/22 07/22/22 [Senokot-S] Previous Rx's Medication Instructions Recorded HYDROcodone/APAP 5-325MG [[facility] 1 tab PO Q6HR PRN #24 tab 07/08/22 5-325] Acetaminophen Tab [Tylenol] 650 mg PO Q6HR PRN tab 07/09/22 Allergies Allergy/AdvReac Type Severity Reaction Status Date / Time No Known Allergies Allergy Verified 07/22/22 16:09 Review of Systems ROS Statement: Those systems with pertinent positive or pertinent negative responses have been documented in the HPI. ROS Other: All systems not noted in ROS Statement are negative. Past Medical History Past Medical History: No Reported History Additional Past Medical History / Comment(s): recently went to neurologist and had syncopal episode. pt states he has been numb all over, neck pain, and weakness and unable to walk. states started years ago but recently went to doctor. possible exposure to agent orange History of Any Multi-Drug Resistant Organisms: None Reported Past Surgical History: No Surgical Hx Reported Past Psychological History: No Psychological Hx Reported Smoking Status: Current every day smoker Past Alcohol Use History: None Reported, Daily Past Drug Use History: None Reported - Past Family History family Additional Family Medical History / Comment(s): no reported CAD, OR CANCER General Exam - General Exam Comments Initial Comments: GENERAL: Patient is well-developed and well-nourished. Patient is nontoxic and well- hydrated and is in no acute distress. ENT: Neck is soft and supple. No significant lymphadenopathy is noted. Oropharynx is clear. Dry mucous membranes. Neck has full range of motion without eliciting any pain. EYES: The sclera were anicteric and conjunctiva were pink and moist. Extraocular movements were intact and pupils were equal round and reactive to light. Eyelids were unremarkable. PULMONARY: Unlabored respirations. Good breath sounds bilaterally. No audible rales rhonchi or wheezing was noted. CARDIOVASCULAR: There is a regular rate and rhythm without any murmurs gallops or rubs. ABDOMEN: Patient's abdomen is mildly tender in the suprapubic region SKIN: Skin is clear with no lesions or rashes and otherwise unremarkable. NEUROLOGIC: Patient is alert and oriented x3. Cranial nerves II through XII are grossly intact. Motor and sensory are also intact. Normal speech, volume and content. Symmetrical smile. MUSCULOSKELETAL: Normal extremities with adequate strength and full range of motion. Forearm of the right arm is swollen and mildly edematous LYMPHATICS: No significant lymphadenopathy is noted PSYCHIATRIC: Normal psychiatric evaluation. Limitations: physical limitation Course Vital Signs 07/22/22 07/22/22 14:39 15:20 Temperature 99.6 F 99.8 F H Pulse Rate 106 H 104 H Respiratory 16 18 Rate Blood Pressure 104/74 O2 Sat by Pulse 96 95 Oximetry Medical Decision Making - Medical Decision Making EKG was interpreted by me. EKG shows sinus tachycardia with occasional PVCs at 113 bpm WV interval 154 QRS is 84 QT interval 335 QTC is 42. Patient's EKG shows no ST segment elevation or depression. Arm swelling shows no acute abnormality. I interpreted the chest x-ray shows atelectasis onthe right and slight pleural effusion. Patient however does not have a cough denies any fever patient denies any shortness of breath. Patient received a liter of normal saline. Because of urinary retention patient was given Terrell catheter. Patient claims that his arm is swollen because they left a blood pressure cuff o n his arm too long. - Lab Data Result diagrams: 07/22/22 15:17 07/22/22 15:17 Lab Results 07/22/22 07/22/22 07/22/22 Range/Units 15:17 15:17 15:40 WBC 9.0 (3.8-10.6) k/uL RBC 3.11 L (4.30-5.90) m/uL Hgb 10.4 L (13.0-17.5) gm/dL Hct 32.4 L (39.0-53.0) % MCV 104.2 H (80.0-100.0) fL MCH 33.5 (25.0-35.0) pg MCHC 32.2 (31.0-37.0) g/dL RDW 12.4 (11.5-15.5) % Plt Count 446 D (150-450) k/uL MPV 9.1 Neutrophils % 84 % Lymphocytes % 9 % Monocytes % 4 % Eosinophils % 0 % Basophils % 0 % Neutrophils # 7.6 (1.3-7.7) k/uL Lymphocytes # 0.8 L (1.0-4.8) k/uL Monocytes # 0.4 (0-1.0) k/uL Eosinophils # 0.0 (0-0.7) k/uL Basophils # 0.0 (0-0.2) k/uL Hypochromasia Moderate Macrocytosis Slight Sodium 144 (137-145) mmol/L Potassium 4.8 (3.5-5.1) mmol/L Chloride 110 H (98-107) mmol/L Carbon Dioxide 23 (22-30) mmol/L Anion Gap 11 mmol/L BUN 28 H (9-20) mg/dL Creatinine 1.04 (0.66-1.25) mg/dL Est GFR (CKD-EPI)AfAm 82 (>60 ml/min/1.73 sqM) Est GFR (CKD-EPI)NonAf 71 (>60 ml/min/1.73 sqM) Glucose 110 H (74-99) mg/dL Plasma Lactic Acid Jeremie (0.7-2.0) mmol/L Calcium 8.4 (8.4-10.2) mg/dL Total Bilirubin 0.6 (0.2-1.3) mg/dL AST 47 (17-59) U/L ALT 51 H (4-49) U/L Alkaline Phosphatase 156 H (38-126) U/L Total Protein 6.1 L (6.3-8.2) g/dL Albumin 2.7 L (3.5-5.0) g/dL Urine Color Yellow Urine Appearance Clear (Clear) Urine pH 6.0 (5.0-8.0) Ur Specific [place] 1.021 (1.001-1.035) Urine Protein 1+ H (Negative) Urine Glucose (UA) Negative (Negative) Urine Ketones Negative (Negative) Urine Blood Negative (Negative) Urine Nitrite Negative (Negative) Urine Bilirubin Negative (Negative) Urine Urobilinogen 2.0 (<2.0) mg/dL Ur Leukocyte Esterase Negative (Negative) Urine RBC 1 (0-5) /hpf Urine WBC 3 (0-5) /hpf Urine Mucus Rare H (None) /hpf 07/22/22 Range/Units 17:10 WBC (3.8-10.6) k/uL RBC (4.30-5.90) m/uL Hgb (13.0-17.5) gm/dL Hct (39.0-53.0) % MCV (80.0-100.0) fL MCH (25.0-35.0) pg MCHC (31.0-37.0) g/dL RDW (11.5-15.5) % Plt Count (150-450) k/uL MPV Neutrophils % % Lymphocytes % % Monocytes % % Eosinophils % % Basophils % % Neutrophils # (1.3-7.7) k/uL Lymphocytes # (1.0-4.8) k/uL Monocytes # (0-1.0) k/uL Eosinophils # (0-0.7) k/uL Basophils # (0-0.2) k/uL Hypochromasia Macrocytosis Sodium (137-145) mmol/L Potassium (3.5-5.1) mmol/L Chloride (98-107) mmol/L Carbon Dioxide (22-30) mmol/L Anion Gap mmol/L BUN (9-20) mg/dL Creatinine (0.66-1.25) mg/dL Est GFR (CKD-EPI)AfAm (>60 ml/min/1.73 sqM) Est GFR (CKD-EPI)NonAf (>60 ml/min/1.73 sqM) Glucose (74-99) mg/dL Plasma Lactic Acid Jeremie 1.9 (0.7-2.0) mmol/L Calcium (8.4-10.2) mg/dL Total Bilirubin (0.2-1.3) mg/dL AST (17-59) U/L ALT (4-49) U/L Alkaline Phosphatase (38-126) U/L Total Protein (6.3-8.2) g/dL Albumin (3.5-5.0) g/dL Urine Color Urine Appearance (Clear) Urine pH (5.0-8.0) Ur Specific [place] (1.001-1.035) Urine Protein (Negative) Urine Glucose (UA) (Negative) Urine Ketones (Negative) Urine Blood (Negative) Urine Nitrite (Negative) Urine Bilirubin (Negative) Urine Urobilinogen (<2.0) mg/dL Ur Leukocyte Esterase (Negative) Urine RBC (0-5) /hpf Urine WBC (0-5) /hpf Urine Mucus (None) /hpf Disposition Clinical Impression: Edema of right upper arm, Urinary retention Disposition: HOME SELF-CARE Condition: Good Instructions (If sedation given, give patient instructions): Urinary Retention in Men (ED), Edema (ED) Is patient prescribed a controlled substance at d/c from ED?: No Referrals: None,Stated [Primary Care Provider] - 1-2 days Time of Disposition: 17:51
[2022-07-22 15:37] LABS: Basophils % (A) 0 %; Eosinophils % (A) 0 %; HCT 32.4 % (39.0-53.0); HGB 10.4 gm/dL (13.0-17.5); Hypochromasia Moderate; Lymphocytes # (A) 0.8 k/uL (1.0-4.8); Lymphocytes % (A) 9 %; MCH 33.5 pg (25.0-35.0); MCHC 32.2 g/dL (31.0-37.0); MCV 104.2 fL (80.0-100.0); Macrocytosis Slight; Mean Platelet Volume 9.1; Monocytes # (A) 0.4 k/uL (0-1.0); Monocytes % (A) 4 %; Neutrophils # (A) 7.6 k/uL (1.3-7.7); Neutrophils % (A) 84 %; RBC 3.11 m/uL (4.30-5.90); RDW 12.4 % (11.5-15.5)
[2022-07-22 15:49] LABS: Albumin 2.7 g/dL (3.5-5.0); Calcium 8.4 mg/dL (8.4-10.2); Potassium 4.8 mmol/L (3.5-5.1); Total Bilirubin 0.6 mg/dL (0.2-1.3); Total Protein 6.1 g/dL (6.3-8.2)
[2022-07-22 16:05] LABS: Platelet Count 446 k/uL (150-450)
--- NOTE | 2022-07-22 16:08 | US ---
EXAMINATION TYPE: US venous doppler duplex UE RT DATE OF EXAM: 07/22/2022 COMPARISON: NONE CLINICAL HISTORY: Right arm swelling. SIDE PERFORMED: Right Right Arm: Negative for DVT Unable to visualize basilic and cephalic veins. Grayscale, color doppler, spectral doppler imaging performed of the deep veins of the right upper ext remity. There is normal flow, compressibility and vascular waveforms. IMPRESSION: No ultrasound evidence for acute DVT in the right upper extremity. Superficial veins coul d not be assessed by technologist.
[2022-07-22 16:24] LABS: Appearance,Urine Clear (Clear); Bilirubin,Urine Negative (Negative); Blood,Urine Negative (Negative); Color,Urine Yellow; Glucose,Urine (UA) Negative (Negative); Ketones,Urine Negative (Negative); Leukocyte Esterase,Urine Negative (Negative); Mucus,Urine Rare /hpf; Nitrite,Urine Negative (Negative); Protein,Urine 1+ (Negative); RBC,Urine 1 /hpf (0-5); Specific Gravity,Urine 1.021 (1.001-1.035); WBC,Urine 3 /hpf (0-5)
--- NOTE | 2022-07-22 16:35 | XR ---
EXAMINATION TYPE: XR chest 2V DATE OF EXAM: 07/22/2022 COMPARISON: Chest x-ray June 26, 2022 HISTORY: Difficulty in breathing. TECHNIQUE: Frontal and lateral views of the chest are obtained. FINDINGS: There is background Chronic emphysematous change with new small left pleural effusion and dense medial left basilar opacity. New patchy right basilar opacity. The cardiac silhouette size is stable and within normal limits. Dextroconvex scoliosis centered in the mid to lower thoracic spine i s redemonstrated. New surgical change to the cervical spine is partially imaged with posterior overly ing vertical skin glendy partially imaged. IMPRESSION: New small left pleural effusion. Dense medial left basilar consolidation and/or atelecta sis. New patchy right lower lung acute infiltrate and/or atelectasis. Progress study advised.
[2022-07-22 19:24] VITALS: PULSE 78; TEMP 98.2
[2022-07-22 19:36] VITALS: BP 104/78; RESP 16
== END 2022-07-22 19:36 | disposition home or self-care (01) ==
LOC: EC 14:33
DX: R22.31 Localized swelling, mass and lump, right upper limb (principal); R33.9 Retention of urine, unspecified; F17.200 Nicotine dependence, unspecified, uncomplicated
CPT/HCPCS: 36415; 51798; 71046; 80053; 81001; 83605; 85025; 87040; 96360; 96361; 99284

== ENCOUNTER 2022-07-24 09:57 | Inpatient (IN) | payer MEDICARE ==
--- NOTE | 2022-07-24 10:18 | XR ---
EXAMINATION TYPE: XR chest 1V portable DATE OF EXAM: 07/24/2022 COMPARISON: 07/22/2022 INDICATION: Fever TECHNIQUE: Single frontal view of the chest is obtained. FINDINGS: The heart size is normal. The pulmonary vasculature is normal. There is a right lower lobe infiltrate. Correlate for pneumonia. Retrocardiac infiltrate silhouetting the diaphragm may be present. Correlate for atelectasis and pneumonia. Endotracheal tube tip is 3.0 centimeters above the mikayla. Postsurgical changes are in the cervical r egion IMPRESSION: 1. Bibasilar infiltrates. Correlate for pneumonia and atelectasis. Findings are worsening.
[2022-07-24] MEDS: SODIUM CHLORIDE 0.9% 500 ML 500 ML IV SCH ×2 (10:32→12:37)
[2022-07-24 10:36] LABS: ABG Base Excess -25.8 mmol/L; ABG PCO2 48 mmHg (35-45); ABG PO2 146 mmHg (83-108); ABG TCO2 10 mmol/L (19-24); Allen Test Performed? Yes
[2022-07-24 10:39] LABS: ABG HCO3 8 mmol/L (21-25); ABG PH 6.84 (7.35-7.45)
--- NOTE | 2022-07-24 10:47 | ED ---
General Adult HPI - General Chief complaint: Altered Mental Status Stated complaint: AMS Time Seen by Provider: 07/24/22 09:57 Source: patient, RN notes reviewed, old records reviewed Mode of arrival: ambulatory Limitations: no limitations - History of Present Illness Initial comments: This is a 71-year-old male who presents emergency Department from a prison he was given his medication about 5 minutes later the staff found him unresponsive. When EMS arrived the patient was having agonal breathing. EMS intubated the patient and patient was also hypotensive that he the patient's fluid. Patient was found to have a sugar of 32 and they gave him 1 amp of D50. According to EMS somebody noted that he had one episode of emesis and it was dark At this point time there is no further history available. - Related Data Home Medications Medication Instructions Recorded Confirmed Cyclobenzaprine [Flexeril] 5 mg PO TID@0900,1300,2100 07/22/22 07/24/22 Gabapentin 300 mg PO TID@0900,1300,2100 07/22/22 07/24/22 Lactose-Reduced Food [Ensure Plus] 1 can PO TID@0900,1300,209907/22/22 07/24/22 Lactulose [Constulose] 10 gm PO BID@0900,2100 07/22/22 07/24/22 Omeprazole [PriLOSEC] 20 mg PO DAILY 07/22/22 07/24/22 Sennosides-Docusate Sodium 2 tab PO DAILY PRN 07/22/22 07/24/22 [Senokot-S] Doxycycline Hyclate 100 mg PO BID@0900,2100 07/24/22 07/24/22 methylPREDNISolone [Medrol Dose See Taper PO DIRECTED 07/24/22 07/24/22 Pack] Previous Rx's Medication Instructions Recorded HYDROcodone/APAP 5-325MG [[place] 1 tab PO Q6HR PRN #24 tab 07/08/22 5-325] Acetaminophen Tab [Tylenol] 650 mg PO Q6HR PRN tab 07/09/22 Allergies Allergy/AdvReac Type Severity Reaction Status Date / Time No Known Allergies Allergy Verified 07/24/22 12:46 Review of Systems ROS Statement: Those systems with pertinent positive or pertinent negative responses have been documented in the HPI. ROS Other: All systems not noted in ROS Statement are negative. Past Medical History Past Medical History: No Reported History Additional Past Medical History / Comment(s): recently went to neurologist and had syncopal episode. pt states he has been numb all over, neck pain, and weakness and unable to walk. states started years ago but recently went to doctor. possible exposure to agent orange History of Any Multi-Drug Resistant Organisms: None Reported Past Surgical History: No Surgical Hx Reported Past Psychological History: No Psychological Hx Reported Smoking Status: Current every day smoker Past Alcohol Use History: None Reported, Daily Past Drug Use History: None Reported - Past Family History family Additional Family Medical History / Comment(s): no reported CAD, OR CANCER General Exam - General Exam Comments Initial Comments: GENERAL: Patient is well-developed and well-nourished. Patient is nontoxic and well-hydr ated. ENT: Neck is soft and supple. No significant lymphadenopathy is noted. Oropharynx is clear. Moist mucous membranes. Neck has full range of motion without eliciting any pain. EYES: The sclera were anicteric and conjunctiva were pink and moist. Extraocular movements were intact and pupils were equal round and reactive to light. Eyelids were unremarkable. PULMONARY: Unlabored respirations. Good breath sounds bilaterally. No audible rales rhonchi or wheezing was noted. CARDIOVASCULAR: Patient is tachycardic at about 115 beats a minute ABDOMEN: Abdomen was mildly distended SKIN: Skin is clear with no lesions or rashes and otherwise unremarkable. NEUROLOGIC: Unresponsive. MUSCULOSKELETAL: Patient was not moving any of his extremities. LYMPHATICS: No significant lymphadenopathy is noted PSYCHIATRIC: Unable to assess Limitations: no limitations Course Vital Signs 07/24/22 07/24/22 07/24/22 09:59 10:02 10:04 Temperature 98.2 F Pulse Rate 108 H Respiratory 20 Rate Blood Pressure 123/71 O2 Sat by Pulse 100 Oximetry Fraction of 100 100 Inspired Oxygen (FIO2) 07/24/22 07/24/22 07/24/22 10:33 10:44 11:08 Temperature 97.7 F Pulse Rate 118 H Respiratory 20 Rate Blood Pressure 99/68 O2 Sat by Pulse 98 Oximetry Fraction of 90 90 Inspired Oxygen (FIO2) 07/24/22 07/24/22 07/24/22 11:14 12:00 13:44 Temperature 96 F L Pulse Rate 122 H 113 H 101 H Respiratory 18 29 H 30 H Rate Blood Pressure 160/88 137/74 107/64 O2 Sat by Pulse 92 L 96 95 Oximetry Fraction of Inspired Oxygen (FIO2) 07/24/22 14:50 Temperature Pulse Rate 99 Respiratory 30 H Rate Blood Pressure 94/60 O2 Sat by Pulse 95 Oximetry Fraction of Inspired Oxygen (FIO2) Procedures - Sepsis Sepsis Focused Exam #1 Time Sepsis Criteria Met: 13:37 Sepsis Focused Exam Date: 07/24/22 Sepsis Focused Exam Time: 14:00 Sepsis Focused Exam Complete: Yes Vital Signs & RN Notes Reviewed: Yes Capillary Refill: < 2 Seconds: Fingers Peripheral Pulses: Normal: Radial (R) Skin Color: Normal for Patient Respiratory Exam: normal lung sounds Cardiovascular Exam: tachycardia (At 105 beats a minute) Medical Decision Making - Medical Decision Making I interpreted the EKG. EKG shows sinus tachycardia with occasional PAC at 110 bpm SD interval is 192 QRS is 86 QT interval 11/21/1989 QTC is 44 per patient's EKG shows no ST segment elevation or depression. I read the CT of the C-spine. I reviewed CT of the cervical spine shows no abscess formation no osseous abnormality I read the CT of the brain. There is no acute abnormality noted. There is no bleed. I read the CT of the abdomen and pelvis. There is dilated small bowels consistent with small bowel structures. Radiology mention that there was no pneumatosis intestinalis. I read the CT of the chest. CT of the chest showed possible infiltrate in the right. I read the chest x-ray shows infiltrate on the right. ET tube was in good placement. I read the chest x-ray is shows poor placement of the NG tube. NG tube will be replaced. The fluid from the NG was coffee ground in nature. Patient received 1500 mL of fluid in the emergency department. Patient was diagnosed with pneumonia at 1:30. Patient's lactic acid was called us at 1:[address] Hamm was contacted he came down and saw the patient personally Dr. Hamm will be taking the patient to the OR - Lab Data Result diagrams: 07/24/22 10:24 07/24/22 10:24 Lab Results 07/24/22 07/24/22 07/24/22 Range/Units 10:24 10:24 10:24 WBC 12.0 H (3.8-10.6) k/uL RBC 2.76 L (4.30-5.90) m/uL Hgb 9.3 L (13.0-17.5) gm/dL Hct 31.8 L (39.0-53.0) % MCV 115.1 H D (80.0-100.0) fL MCH 33.7 (25.0-35.0) pg MCHC 29.3 L (31.0-37.0) g/dL RDW 12.8 (11.5-15.5) % Plt Count 317 (150-450) k/uL MPV 10.0 Neutrophils % Not Reportable Neutrophils % (Manual) 64 % Band Neuts % (Manual) 11 % Lymphocytes % Not Reportable Lymphocytes % (Manual) 12 % Monocytes % Not Reportable Monocytes % (Manual) 5 % Eosinophils % Not Reportable Basophils % Not Reportable Metamyelocytes % 6 % Myelocytes % 4 % Neutrophils # Not Reportable Neutrophils # (Manual) 9.00 H (1.3-7.7) k/uL Lymphocytes # Not Reportable Lymphocytes # (Manual) 1.44 (1.0-4.8) k/uL Monocytes # Not Reportable Monocytes # (Manual) 0.60 (0-1.0) k/uL Eosinophils # Not Reportable Basophils # Not Reportable Metamyelocytes # (Man) 0.72 H (0) k/uL Myelocytes # (Manual) 0.48 H (0) k/uL Nucleated RBCs 2 H (0-0) /100 WBC Manual Slide Review Performed Hypochromasia Marked Poikilocytosis (manual Present Macrocytosis Marked A PT 16.8 H (9.0-12.0) sec INR 1.6 H (<1.2) APTT 24.4 (22.0-30.0) sec Sample Site ABG pH (7.35-7.45) ABG pCO2 (35-45) mmHg ABG pO2 (83-108) mmHg ABG HCO3 (21-25) mmol/L ABG Total CO2 (19-24) mmol/L ABG O2 Saturation (94-97) % ABG Base Excess mmol/L Juancarlos Test FiO2 % Sodium (137-145) mmol/L Potassium (3.5-5.1) mmol/L Chloride (98-107) mmol/L Carbon Dioxide (22-30) mmol/L Anion Gap mmol/L BUN (9-20) mg/dL Creatinine (0.66-1.25) mg/dL Est GFR (CKD-EPI)AfAm (>60 ml/min/1.73 sqM) Est GFR (CKD-EPI)NonAf (>60 ml/min/1.73 sqM) Glucose (74-99) mg/dL POC Glucose (mg/dL) (70-110) mg/dL POC Glu Dust Handler ID Plasma Lactic Acid Jeremie (0.7-2.0) mmol/L Calcium (8.4-10.2) mg/dL Total Bilirubin (0.2-1.3) mg/dL AST (17-59) U/L ALT (4-49) U/L Alkaline Phosphatase (38-126) U/L Troponin I (0.000-0.034) ng/mL Total Protein (6.3-8.2) g/dL Albumin (3.5-5.0) g/dL Urine Color Urine Appearance (Clear) Urine pH (5.0-8.0) Ur Specific [place] (1.001-1.035) Urine Protein (Negative) Urine Glucose (UA) (Negative) Urine Ketones (Negative) Urine Blood (Negative) Urine Nitrite (Negative) Urine Bilirubin (Negative) Urine Urobilinogen (<2.0) mg/dL Ur Leukocyte Esterase (Negative) Urine RBC (0-5) /hpf Urine WBC (0-5) /hpf Ur Squamous Epith Cells (0-4) /hpf Urine Bacteria (None) /hpf Urine Mucus (None) /hpf Stool Occult Blood Negative (Negative) Coronavirus (PCR) (Not Detectd) 07/24/22 07/24/22 07/24/22 Range/Units 10:24 10:24 10:24 WBC (3.8-10.6) k/uL RBC (4.30-5.90) m/uL Hgb (13.0-17.5) gm/dL Hct (39.0-53.0) % MCV (80.0-100.0) fL MCH (25.0-35.0) pg MCHC (31.0-37.0) g/dL RDW (11.5-15.5) % Plt Count (150-450) k/uL MPV Neutrophils % Neutrophils % (Manual) % Band Neuts % (Manual) % Lymphocytes % Lymphocytes % (Manual) % Monocytes % Monocytes % (Manual) % Eosinophils % Basophils % Metamyelocytes % % Myelocytes % % Neutrophils # Neutrophils # (Manual) (1.3-7.7) k/uL Lymphocytes # Lymphocytes # (Manual) (1.0-4.8) k/uL Monocytes # Monocytes # (Manual) (0-1.0) k/uL Eosinophils # Basophils # Metamyelocytes # (Man) (0) k/uL Myelocytes # (Manual) (0) k/uL Nucleated RBCs (0-0) /100 WBC Manual Slide Review Hypochromasia Poikilocytosis (manual Macrocytosis PT (9.0-12.0) sec INR (<1.2) APTT (22.0-30.0) sec Sample Site ABG pH (7.35-7.45) ABG pCO2 (35-45) mmHg ABG pO2 (83-108) mmHg ABG HCO3 (21-25) mmol/L ABG Total CO2 (19-24) mmol/L ABG O2 Saturation (94-97) % ABG Base Excess mmol/L Juancarlos Test FiO2 % Sodium 146 H (137-145) mmol/L Potassium 5.6 H (3.5-5.1) mmol/L Chloride 114 H (98-107) mmol/L Carbon Dioxide 11 L (22-30) mmol/L Anion Gap 21 mmol/L BUN 27 H (9-20) mg/dL Creatinine 1.72 H (0.66-1.25) mg/dL Est GFR (CKD-EPI)AfAm 45 (>60 ml/min/1.73 sqM) Est GFR (CKD-EPI)NonAf 39 (>60 ml/min/1.73 sqM) Glucose 139 H (74-99) mg/dL POC Glucose (mg/dL) (70-110) mg/dL POC Glu Dust Handler ID Plasma Lactic Acid Jeremie 15.0 H* (0.7-2.0) mmol/L Calcium 8.8 (8.4-10.2) mg/dL Total Bilirubin 1.0 (0.2-1.3) mg/dL AST 3754 H (17-59) U/L ALT 1506 H (4-49) U/L Alkaline Phosphatase 140 H (38-126) U/L Troponin I (0.000-0.034) ng/mL Total Protein 5.8 L (6.3-8.2) g/dL Albumin 2.6 L (3.5-5.0) g/dL Urine Color Yellow Urine Appearance Cloudy (Clear) Urine pH 5.5 (5.0-8.0) Ur Specific [place] 1.022 (1.001-1.035) Urine Protein 1+ H (Negative) Urine Glucose (UA) Negative (Negative) Urine Ketones Negative (Negative) Urine Blood Negative (Negative) Urine Nitrite Negative (Negative) Urine Bilirubin Negative (Negative) Urine Urobilinogen 2.0 (<2.0) mg/dL Ur Leukocyte Esterase Trace H (Negative) Urine RBC 1 (0-5) /hpf Urine WBC 17 H (0-5) /hpf Ur Squamous Epith Cells <1 (0-4) /hpf Urine Bacteria Rare H (None) /hpf Urine Mucus Occasional H (None) /hpf Stool Occult Blood (Negative) Coronavirus (PCR) (Not Detectd) 07/24/22 07/24/22 07/24/22 Range/Units 10:24 10:34 12:31 WBC (3.8-10.6) k/uL RBC (4.30-5.90) m/uL Hgb (13.0-17.5) gm/dL Hct (39.0-53.0) % MCV (80.0-100.0) fL MCH (25.0-35.0) pg MCHC (31.0-37.0) g/dL RDW (11.5-15.5) % Plt Count (150-450) k/uL MPV Neutrophils % Neutrophils % (Manual) % Band Neuts % (Manual) % Lymphocytes % Lymphocytes % (Manual) % Monocytes % Monocytes % (Manual) % Eosinophils % Basophils % Metamyelocytes % % Myelocytes % % Neutrophils # Neutrophils # (Manual) (1.3-7.7) k/uL Lymphocytes # Lymphocytes # (Manual) (1.0-4.8) k/uL Monocytes # Monocytes # (Manual) (0-1.0) k/uL Eosinophils # Basophils # Metamyelocytes # (Man) (0) k/uL Myelocytes # (Manual) (0) k/uL Nucleated RBCs (0-0) /100 WBC Manual Slide Review Hypochromasia Poikilocytosis (manual Macrocytosis PT (9.0-12.0) sec INR (<1.2) APTT (22.0-30.0) sec Sample Site Right Brachial ABG pH 6.84 L* (7.35-7.45) ABG pCO2 48 H (35-45) mmHg ABG pO2 146 H (83-108) mmHg ABG HCO3 8 L* (21-25) mmol/L ABG Total CO2 10 L (19-24) mmol/L ABG O2 Saturation 96.0 (94-97) % ABG Base Excess -25.8 mmol/L Juancarlos Test Yes FiO2 100 % Sodium (137-145) mmol/L Potassium (3.5-5.1) mmol/L Chloride (98-107) mmol/L Carbon Dioxide (22-30) mmol/L Anion Gap mmol/L BUN (9-20) mg/dL Creatinine (0.66-1.25) mg/dL Est GFR (CKD-EPI)AfAm (>60 ml/min/1.73 sqM) Est GFR (CKD-EPI)NonAf (>60 ml/min/1.73 sqM) Glucose (74-99) mg/dL POC Glucose (mg/dL) (70-110) mg/dL POC Glu Dust Handler ID Plasma Lactic Acid Jeremie (0.7-2.0) mmol/L Calcium (8.4-10.2) mg/dL Total Bilirubin (0.2-1.3) mg/dL AST (17-59) U/L ALT (4-49) U/L Alkaline Phosphatase (38-126) U/L Troponin I 0.046 H* (0.000-0.034) ng/mL Total Protein (6.3-8.2) g/dL Albumin (3.5-5.0) g/dL Urine Color Urine Appearance (Clear) Urine pH (5.0-8.0) Ur Specific [place] (1.001-1.035) Urine Protein (Negative) Urine Glucose (UA) (Negative) Urine Ketones (Negative) Urine Blood (Negative) Urine Nitrite (Negative) Urine Bilirubin (Negative) Urine Urobilinogen (<2.0) mg/dL Ur Leukocyte Esterase (Negative) Urine RBC (0-5) /hpf Urine WBC (0-5) /hpf Ur Squamous Epith Cells (0-4) /hpf Urine Bacteria (None) /hpf Urine Mucus (None) /hpf Stool Occult Blood (Negative) Coronavirus (PCR) Detected A (Not Detectd) 07/24/22 07/24/22 07/24/22 Range/Units 12:48 12:49 12:49 WBC (3.8-10.6) k/uL RBC (4.30-5.90) m/uL Hgb (13.0-17.5) gm/dL Hct (39.0-53.0) % MCV (80.0-100.0) fL MCH (25.0-35.0) pg MCHC (31.0-37.0) g/dL RDW (11.5-15.5) % Plt Count (150-450) k/uL MPV Neutrophils % Neutrophils % (Manual) % Band Neuts % (Manual) % Lymphocytes % Lymphocytes % (Manual) % Monocytes % Monocytes % (Manual) % Eosinophils % Basophils % Metamyelocytes % % Myelocytes % % Neutrophils # Neutrophils # (Manual) (1.3-7.7) k/uL Lymphocytes # Lymphocytes # (Manual) (1.0-4.8) k/uL Monocytes # Monocytes # (Manual) (0-1.0) k/uL Eosinophils # Basophils # Metamyelocytes # (Man) (0) k/uL Myelocytes # (Manual) (0) k/uL Nucleated RBCs (0-0) /100 WBC Manual Slide Review Hypochromasia Poikilocytosis (manual Macrocytosis PT (9.0-12.0) sec INR (<1.2) APTT (22.0-30.0) sec Sample Site ABG pH (7.35-7.45) ABG pCO2 (35-45) mmHg ABG pO2 (83-108) mmHg ABG HCO3 (21-25) mmol/L ABG Total CO2 (19-24) mmol/L ABG O2 Saturation (94-97) % ABG Base Excess mmol/L Juancarlos Test FiO2 % Sodium (137-145) mmol/L Potassium (3.5-5.1) mmol/L Chloride (98-107) mmol/L Carbon Dioxide (22-30) mmol/L Anion Gap mmol/L BUN (9-20) mg/dL Creatinine (0.66-1.25) mg/dL Est GFR (CKD-EPI)AfAm (>60 ml/min/1.73 sqM) Est GFR (CKD-EPI)NonAf (>60 ml/min/1.73 sqM) Glucose (74-99) mg/dL POC Glucose (mg/dL) 35 L 56 L 56 L (70-110) mg/dL POC Glu Dust Handler ID Willing, Kasey Willing, Kasey Willing, Kasey Plasma Lactic Acid Jeremie (0.7-2.0) mmol/L Calcium (8.4-10.2) mg/dL Total Bilirubin (0.2-1.3) mg/dL AST (17-59) U/L ALT (4-49) U/L Alkaline Phosphatase (38-126) U/L Troponin I (0.000-0.034) ng/mL Total Protein (6.3-8.2) g/dL Albumin (3.5-5.0) g/dL Urine Color Urine Appearance (Clear) Urine pH (5.0-8.0) Ur Specific [place] (1.001-1.035) Urine Protein (Negative) Urine Glucose (UA) (Negative) Urine Ketones (Negative) Urine Blood (Negative) Urine Nitrite (Negative) Urine Bilirubin (Negative) Urine Urobilinogen (<2.0) mg/dL Ur Leukocyte Esterase (Negative) Urine RBC (0-5) /hpf Urine WBC (0-5) /hpf Ur Squamous Epith Cells (0-4) /hpf Urine Bacteria (None) /hpf Urine Mucus (None) /hpf Stool Occult Blood (Negative) Coronavirus (PCR) (Not Detectd) 07/24/22 Range/Units 13:52 WBC (3.8-10.6) k/uL RBC (4.30-5.90) m/uL Hgb (13.0-17.5) gm/dL Hct (39.0-53.0) % MCV (80.0-100.0) fL MCH (25.0-35.0) pg MCHC (31.0-37.0) g/dL RDW (11.5-15.5) % Plt Count (150-450) k/uL MPV Neutrophils % Neutrophils % (Manual) % Band Neuts % (Manual) % Lymphocytes % Lymphocytes % (Manual) % Monocytes % Monocytes % (Manual) % Eosinophils % Basophils % Metamyelocytes % % Myelocytes % % Neutrophils # Neutrophils # (Manual) (1.3-7.7) k/uL Lymphocytes # Lymphocytes # (Manual) (1.0-4.8) k/uL Monocytes # Monocytes # (Manual) (0-1.0) k/uL Eosinophils # Basophils # Metamyelocytes # (Man) (0) k/uL Myelocytes # (Manual) (0) k/uL Nucleated RBCs (0-0) /100 WBC Manual Slide Review Hypochromasia Poikilocytosis (manual Macrocytosis PT (9.0-12.0) sec INR (<1.2) APTT (22.0-30.0) sec Sample Site ABG pH (7.35-7.45) ABG pCO2 (35-45) mmHg ABG pO2 (83-108) mmHg ABG HCO3 (21-25) mmol/L ABG Total CO2 (19-24) mmol/L ABG O2 Saturation (94-97) % ABG Base Excess mmol/L Juancarlos Test FiO2 % Sodium (137-145) mmol/L Potassium (3.5-5.1) mmol/L Chloride (98-107) mmol/L Carbon Dioxide (22-30) mmol/L Anion Gap mmol/L BUN (9-20) mg/dL Creatinine (0.66-1.25) mg/dL Est GFR (CKD-EPI)AfAm (>60 ml/min/1.73 sqM) Est GFR (CKD-EPI)NonAf (>60 ml/min/1.73 sqM) Glucose (74-99) mg/dL POC Glucose (mg/dL) 153 H (70-110) mg/dL POC Glu Dust Handler ID Marine, Nick Plasma Lactic Acid Jeremie (0.7-2.0) mmol/L Calcium (8.4-10.2) mg/dL Total Bilirubin (0.2-1.3) mg/dL AST (17-59) U/L ALT (4-49) U/L Alkaline Phosphatase (38-126) U/L Troponin I (0.000-0.034) ng/mL Total Protein (6.3-8.2) g/dL Albumin (3.5-5.0) g/dL Urine Color Urine Appearance (Clear) Urine pH (5.0-8.0) Ur Specific [place] (1.001-1.035) Urine Protein (Negative) Urine Glucose (UA) (Negative) Urine Ketones (Negative) Urine Blood (Negative) Urine Nitrite (Negative) Urine Bilirubin (Negative) Urine Urobilinogen (<2.0) mg/dL Ur Leukocyte Esterase (Negative) Urine RBC (0-5) /hpf Urine WBC (0-5) /hpf Ur Squamous Epith Cells (0-4) /hpf Urine Bacteria (None) /hpf Urine Mucus (None) /hpf Stool Occult Blood (Negative) Coronavirus (PCR) (Not Detectd) Critical Care Time Critical Care Time: Yes Total Critical Care Time: 45 Disposition Clinical Impression: Small bowel obstruction, Pneumonia, Pneumatosis intestinalis, Sepsis, COVID-19, Anemia, Transaminitis, Renal insufficiency Disposition: ADMITTED IP TO THIS HOSP Referrals: None,Stated [Primary Care Provider] - 1-2 days Time of Disposition: 13:59
[2022-07-24] MEDS ORDERED: SODIUM BICARB 8.4% 50 ML SYR (1 MEQ/ML) IV STA (10:49)
[2022-07-24 10:52] LABS: Appearance,Urine Cloudy (Clear); Bacteria,Urine Rare /hpf; Bilirubin,Urine Negative (Negative); Blood,Urine Negative (Negative); Color,Urine Yellow; Glucose,Urine (UA) Negative (Negative); Ketones,Urine Negative (Negative); Leukocyte Esterase,Urine Trace (Negative); Mucus,Urine Occasional /hpf; Nitrite,Urine Negative (Negative); PH, Urine 5.5 (5.0-8.0); Protein,Urine 1+ (Negative); RBC,Urine 1 /hpf (0-5); Specific Gravity,Urine 1.022 (1.001-1.035); Squamous Epithelial Cell,Urine <1 /hpf (0-4); WBC,Urine 17 /hpf (0-5)
[2022-07-24 10:57] LABS: HCT 31.8 % (39.0-53.0); HGB 9.3 gm/dL (13.0-17.5); Hypochromasia Marked; MCH 33.7 pg (25.0-35.0); MCHC 29.3 g/dL (31.0-37.0); Macrocytosis Marked; Platelet Count 317 k/uL (150-450); RBC 2.76 m/uL (4.30-5.90); RDW 12.8 % (11.5-15.5)
[2022-07-24 10:58] LABS: MCV 115.1 fL (80.0-100.0)
[2022-07-24 11:34] LABS: Albumin 2.6 g/dL (3.5-5.0); Calcium 8.8 mg/dL (8.4-10.2); Total Protein 5.8 g/dL (6.3-8.2)
[2022-07-24 11:37] LABS: Potassium 5.6 mmol/L (3.5-5.1)
[2022-07-24 11:56] LABS: INR 1.6 (<1.2); Partial Thromboplastin Time 24.4 sec (22.0-30.0); Prothrombin Time 16.8 sec (9.0-12.0)
[2022-07-24] MEDS ORDERED: PIPERACILLIN-TAZOBACTAM 3.375 GM in SODIUM CHLORIDE 0.9% 100 ML IVPB STA (12:05)
[2022-07-24 12:14] LABS: Band Neutrophils % 11 %; Lymphocytes # (M) 1.44 k/uL (1.0-4.8); Metamyelocytes # (M) 0.72 k/uL (0); Metamyelocytes % 6 %; Myelocytes # (M) 0.48 k/uL (0); Myelocytes % 4 %; Neutrophils % (M) 64 %; Nucleated Red Blood Cells 2 /100 WBC (0-0); Total Cells Counted 200
[2022-07-24 12:15] LABS: Poikilocytosis (M) Present
--- NOTE | 2022-07-24 12:17 | CT ---
EXAMINATION TYPE: CT brain wo con DATE OF EXAM: 07/24/2022 COMPARISON: 06/26/2022 INDICATION: Unresponsive DLP: 1121 mGycm, Automated exposure control for dose reduction was used. CONTRAST: None CT of the brain is performed utilizing 3 mm thick sections through the posterior fossa and 3 mm thick sections through the remaining calvarium. Study is performed within 24 hours of arrival to the hosp [facility]. No abnormal hyperdensity is present to suggest an acute intracranial hemorrhage. No mass lesion is evident. No acute infarcts are evident. Patchy periventricular white matter hypodensity is present, likely on the basis of chronic white matter changes. An old lacunar infarct is likely within the right beckett r adiata and left caudate head. These were present previously. Ventricles and sulci are somewhat prominent for the patient age. Small air-fluid levels within right maxillary sinus. Correlate for acute sinusitis. Remaining paranas al sinuses and mastoid air cells are clear. IMPRESSIONS: 1. Chronic appearing periventricular white matter ischemic type changes. Old lacunar infarcts are p resent. Some mild age-related atrophy is present. Follow-up MRI can be performed as clinically indica korey.
--- NOTE | 2022-07-24 12:25 | CT ---
CT CHEST FOR PULMONARY EMBOLISM. EXAMINATION TYPE: CT chest angio for PE DATE OF EXAM: 07/24/2022 INDICATION: elevated d-dimer CT DLP: 256.2 mGycm, Automated exposure control for dose reduction was used. CONTRAST: Patient injected with 70 mL of Isovue 370. COMPARISON: None TECHNIQUE: CT of the chest is performed on a spiral scan at 2 mm thick sections. Study is performed with intravenous contrast timed for evaluation for pulmonary embolism. This will limit additional po rtions of the evaluation. 3-D MIP images reconstructed by the technologist are reviewed on the compu ter in the coronal and sagittal planes. FINDINGS: Portion of the thyroid visualized is normal. No persistent filling defects are evident to suggest an acute pulmonary embolism. No mediastinal or hilar adenopathy enlarged by CT criteria is evident. The ascending aorta diameter at the level of the main pulmonary artery is 3.0 cm. The main pulmonary artery diameter at the bifur cation is 2.5 cm. Some compressive atelectasis is likely present within the posterior left lung. Focal infiltrate may be in the aerated left baser. Some pleural thickening may be along the posterior right lung margin. Spiculated density medially within the posterior lateral right lung measuring 0.9 cm. Series 401 image 97. Infiltrate is present to the right mid lung. There is a spiculated density with air bronchograms in the right upper lung field periphery measuring 2.2 x 1.6 cm. Series 401 image 54. Correlate for primary metastatic neoplasm. There is a band of soft tissue thickening through the right apex measuring 4.5 x 1.7 cm. Esophagus is dilated to the gastroesophageal junction. The stomach is distended with fluid. Liver is heterogenous. Underlying masses should be considered. Metastasis should be considered. IMPRESSIONS: 1. No acute pulmonary embolism. 2. Scattered soft tissue densities within right lung are nonspecific. Primary metastatic neoplasm sushma uld be considered. 3. There are additional lung findings which could be compatible with areas of pneumonitis and infecti on. 4. Fluid-filled esophagus. Reflux or stricture at the gastroesophageal junction should be considered. Additional workup can be performed when the patient is stable.
--- NOTE | 2022-07-24 12:35 | CT ---
EXAMINATION TYPE: CT abdomen pelvis w con DATE OF EXAM: 07/24/2022 COMPARISON: None INDICATION: distention DLP: 624.6 mGycm, Automated exposure control for dose reduction was used. CONTRAST: 100 mL of Isovue 300. Study performed without Oral Contrast TECHNIQUE: Axial images were obtained from above the diaphragm to the pubic rami in the axial plane a t 5 mm thick sections. Reconstructed images are reviewed on the computer in the coronal plane. FINDINGS: Limited CT sections are obtained the lung bases. Please see complete CT chest for PE in separate rep ort. CT ABDOMEN: Liver: Heterogeneity is present through the liver. An infiltrative process should be considered. Cons ider metastasis. Spleen: Spleen is not well opacified following contrast. Consider splenic infarct Pancreas: Atrophic Adrenal glands: The adrenal glands are normal. Gallbladder: Normal Kidneys: No masses are evident. No hydronephrosis is present. No cysts are present. There are wedge like deformities during the early phase of contrast. This remains present within the posterior latera l mid left kidney and posterior lateral superior pole right kidney on delayed images with more homoge nous enhancement elsewhere. Consider ischemic changes. Aorta: Vascular calcification is within the aorta. Inferior vena cava: Normal. CT PELVIS: Large fecal bolus is at the rectum. Catheters within the rectum. There are multiple dilated small bow el loops containing fluid. Some pneumatosis intestinalis within loops of bowel in the right upper partha drant are present. Stomach is distended with fluid Appendix: Not identified. No dilated tubular structure inflammatory changes identified. Urinary bladder: Decompressed with Terrell catheter Genitourinary structures: Prostate is normal Osseous structures: No suspicious lytic or sclerotic lesions. Facet changes are within the lumbar spi ne. Scoliosis is present. IMPRESSIONS: 1. Dilated small bowel loops and colon with some pneumatosis intestinalis in the right upper quadran t. Consider some bowel infarct within the differential. Small bowel obstruction could be considered. There is a large fecal bolus at the rectum and colonic obstruction is also considered. 2. Significant contrast within the spleen is not identified. Consider splenic infarct. 3. Mild subsegmental infarcts within the kidneys are not excluded. 4. Infiltrative process within the liver. Consider metastasis within the differential
--- NOTE | 2022-07-24 12:47 | XR ---
EXAMINATION TYPE: XR chest 1V confirm line [facility] DATE OF EXAM: 07/24/2022 COMPARISON: Radiograph earlier today HISTORY: 71-year-old male NG tube placement TECHNIQUE: Single frontal view of the chest is obtained. FINDINGS: ET tube tip at or just below the level of the medial clavicular heads. Appears to have been pulled ba ck slightly in the interval. The NG tube is short. Sidehole near the thoracic inlet. The tip is at th e upper third shaft level. Heart upper limits of normal in size. Multifocal patchy interstitial opaci ties persist, right greater than left. No pleural effusion. IMPRESSION: 1. ET tube pulled back slightly in the interval. The tip is at or just below the medial clavicular he ads. 2. NG tube is short. Tip is at the upper third chest level. Appropriate repositioning recommended. 3. Bilateral patchy infiltrates redemonstrated, right greater left.
[2022-07-24 12:49] LABS: Glucose,Whole Blood 35 mg/dL (70-110)
[2022-07-24 12:51] LABS: Glucose,Whole Blood 56 mg/dL (70-110)
[2022-07-24] MEDS ORDERED: DEXTROSE 50% SYRINGE 50 ML IVP STA (12:53)
--- NOTE | 2022-07-24 13:12 | CT ---
EXAMINATION TYPE: CT cervical spine w con DATE OF EXAM: 07/24/2022 COMPARISON: 07/05/2022 HISTORY: post op CT DLP: 268.4 mGycm CONTRAST: Performed with IV Contrast, patient injected with 100 mL of Isovue 300. CT of the cervical spine is performed in the axial plane at 2 mm thick sections. Reconstructed image s in the coronal, and sagittal plane are reviewed on the computer. No acute fractures are evident. No suspicious enhancement is evident. No abscess formation is identif ied by CT. Minimal retrolisthesis of C6 on C7 is present. Vertebral body alignment is otherwise unremarkable. There is narrowing of the C6-7 disc height Vertebral body heights are preserved. No spinal canal stenosis is evident Left foraminal stenosis from joint hypertrophy is present C5-6. Bilateral foraminal stenosis present C4-5 and C3-4. IMPRESSIONS: 1. No acute osseous abnormality cervical spine. Extensive postsurgical changes are present. 2. Degenerative disc changes and minimal retrolisthesis of C6 on C7 3. Uncovertebral joint hypertrophy with foraminal narrowing upper cervical spine
[2022-07-24] MEDS ORDERED: SODIUM CHLORIDE 0.9% 500 ML 500 ML IV ONE (13:52)
[2022-07-24 13:53] LABS: Glucose,Whole Blood 153 mg/dL (70-110)
--- NOTE | 2022-07-24 15:14 | P.GSHP ---
History of Present Illness H&P Date: 07/24/22 Chief Complaint: Ischemic bowel 71-year-old male transferred from rehab today critically ill. Patient was intubated per EMS on their arrival. He apparently had altered mental status changes and that was apparently the reason EMS was called. Patient had hypoglycemia and an episode of dark emesis. Here in the hospital the patient has undergone preliminary workup by the ER staff including CT brain chest abdomen and pelvis. Blood work demonstrates significant metabolic acidosis with elevated lactic acid 15 and pH 6.8. Patient's liver enzymes are markedly elevated consistent with shock liver. Systolic blood pressure currently in the 90s after 1.5 L of saline. White blood cell count is elevated with bandemia. Covid PCR is positive. CAT scan shows numerous abnormalities most significant appears to be small bowel dilation with small bowel pneumatosis. Patient has atypical vascular enhancement of the liver kidneys and spleen. There are wedge shaped defects in the kidneys suspicious for possible embolic disease. The patient's is present at the bedside. She states that he was recently told in the last 1-2 months that he has pancreatic cancer. He apparently has not followed through with a oncologist yet. Patient is full code. Since arrival patient has been resuscitated thus far with 1.5 L of saline. Oral gastric tube was placed with 1.5 L ceron to brown colored output Terrell catheter was placed. - Review of Systems ROS unobtainable: Reports: due to endotracheal tube Past Medical History Past Medical History: No Reported History Additional Past Medical History / Comment(s): recently went to neurologist and had syncopal episode. pt states he has been numb all over, neck pain, and weakness and unable to walk. states started years ago but recently went to doctor. possible exposure to agent orange History of Any Multi-Drug Resistant Organisms: None Reported Past Surgical History: No Surgical Hx Reported Past Psychological History: No Psychological Hx Reported Smoking Status: Current every day smoker Past Alcohol Use History: None Reported, Daily Past Drug Use History: None Reported - Past Family History family Additional Family Medical History / Comment(s): no reported CAD, OR CANCER Medications and Allergies Home Medications Medication Instructions Recorded Confirmed Type HYDROcodone/APAP 5-325MG [Jackson 1 tab PO Q6HR PRN #24 tab 07/08/22 07/24/22 Rx 5-325] Acetaminophen Tab [Tylenol] 650 mg PO Q6HR PRN tab 07/09/22 07/24/22 Rx Cyclobenzaprine [Flexeril] 5 mg PO TID@0900,1300,209907/22/22 07/24/22 History Gabapentin 300 mg PO TID@0900,1300,209907/22/22 07/24/22 History Lactose-Reduced Food [Ensure Plus] 1 can PO TID@0900,1300,209907/22/22 07/24/22 History Lactulose [Constulose] 10 gm PO BID@0900,209907/22/22 07/24/22 History Omeprazole [PriLOSEC] 20 mg PO DAILY 07/22/22 07/24/22 History Sennosides-Docusate Sodium 2 tab PO DAILY PRN 07/22/22 07/24/22 History [Senokot-S] Doxycycline Hyclate 100 mg PO BID@0900,209907/24/22 07/24/22 History methylPREDNISolone [Medrol Dose See Taper PO DIRECTED 07/24/22 07/24/22 History Pack] Allergies Allergy/AdvReac Type Severity Reaction Status Date / Time No Known Allergies Allergy Verified 07/24/22 12:46 Surgical - Exam Vital Signs Temp Pulse Resp BP Pulse Ox 98.2 F 108 H 20 123/71 100 07/24/22 09:59 07/24/22 09:59 07/24/22 09:59 07/24/22 09:59 07/24/22 09:59 Physical exam: General: Malnourished-appearing male appears pale intubated HEENT: Normocephalic, sclerae nonicteric, soft c-collar in place Abdomen: Mildly distended, no appreciable tenderness on propofol sedation Extremities: No edema Neuro: Intubated Results - Labs 07/24/22 10:24 07/24/22 10:24 Abnormal Lab Results - Last 24 Hours (Table) 07/24/22 07/24/22 07/24/22 Range/Units 10:24 10:24 10:24 WBC 12.0 H (3.8-10.6) k/uL RBC 2.76 L (4.30-5.90) m/uL Hgb 9.3 L (13.0-17.5) gm/dL Hct 31.8 L (39.0-53.0) % MCV 115.1 H D (80.0-100.0) fL MCHC 29.3 L (31.0-37.0) g/dL Neutrophils # (Manual) 9.00 H (1.3-7.7) k/uL Metamyelocytes # (Man) 0.72 H (0) k/uL Myelocytes # (Manual) 0.48 H (0) k/uL Nucleated RBCs 2 H (0-0) /100 WBC Macrocytosis Marked A PT 16.8 H (9.0-12.0) sec INR 1.6 H (<1.2) ABG pH (7.35-7.45) ABG pCO2 (35-45) mmHg ABG pO2 (83-108) mmHg ABG HCO3 (21-25) mmol/L ABG Total CO2 (19-24) mmol/L Sodium (137-145) mmol/L Potassium (3.5-5.1) mmol/L Chloride (98-107) mmol/L Carbon Dioxide (22-30) mmol/L BUN (9-20) mg/dL Creatinine (0.66-1.25) mg/dL Glucose (74-99) mg/dL POC Glucose (mg/dL) (70-110) mg/dL Plasma Lactic Acid Jeremie (0.7-2.0) mmol/L AST (17-59) U/L ALT (4-49) U/L Alkaline Phosphatase (38-126) U/L Troponin I (0.000-0.034) ng/mL Total Protein (6.3-8.2) g/dL Albumin (3.5-5.0) g/dL Urine Protein 1+ H (Negative) Ur Leukocyte Esterase Trace H (Negative) Urine WBC 17 H (0-5) /hpf Urine Bacteria Rare H (None) /hpf Urine Mucus Occasional H (None) /hpf Coronavirus (PCR) (Not Detectd) 07/24/22 07/24/22 07/24/22 Range/Units 10:24 10:24 10:24 WBC (3.8-10.6) k/uL RBC (4.30-5.90) m/uL Hgb (13.0-17.5) gm/dL Hct (39.0-53.0) % MCV (80.0-100.0) fL MCHC (31.0-37.0) g/dL Neutrophils # (Manual) (1.3-7.7) k/uL Metamyelocytes # (Man) (0) k/uL Myelocytes # (Manual) (0) k/uL Nucleated RBCs (0-0) /100 WBC Macrocytosis PT (9.0-12.0) sec INR (<1.2) ABG pH (7.35-7.45) ABG pCO2 (35-45) mmHg ABG pO2 (83-108) mmHg ABG HCO3 (21-25) mmol/L ABG Total CO2 (19-24) mmol/L Sodium 146 H (137-145) mmol/L Potassium 5.6 H (3.5-5.1) mmol/L Chloride 114 H (98-107) mmol/L Carbon Dioxide 11 L (22-30) mmol/L BUN 27 H (9-20) mg/dL Creatinine 1.72 H (0.66-1.25) mg/dL Glucose 139 H (74-99) mg/dL POC Glucose (mg/dL) (70-110) mg/dL Plasma Lactic Acid Jeremie 15.0 H* (0.7-2.0) mmol/L AST 3754 H (17-59) U/L ALT 1506 H (4-49) U/L Alkaline Phosphatase 140 H (38-126) U/L Troponin I 0.046 H* (0.000-0.034) ng/mL Total Protein 5.8 L (6.3-8.2) g/dL Albumin 2.6 L (3.5-5.0) g/dL Urine Protein (Negative) Ur Leukocyte Esterase (Negative) Urine WBC (0-5) /hpf Urine Bacteria (None) /hpf Urine Mucus (None) /hpf Coronavirus (PCR) (Not Detectd) 07/24/22 07/24/22 07/24/22 Range/Units 10:34 12:31 12:48 WBC (3.8-10.6) k/uL RBC (4.30-5.90) m/uL Hgb (13.0-17.5) gm/dL Hct (39.0-53.0) % MCV (80.0-100.0) fL MCHC (31.0-37.0) g/dL Neutrophils # (Manual) (1.3-7.7) k/uL Metamyelocytes # (Man) (0) k/uL Myelocytes # (Manual) (0) k/uL Nucleated RBCs (0-0) /100 WBC Macrocytosis PT (9.0-12.0) sec INR (<1.2) ABG pH 6.84 L* (7.35-7.45) ABG pCO2 48 H (35-45) mmHg ABG pO2 146 H (83-108) mmHg ABG HCO3 8 L* (21-25) mmol/L ABG Total CO2 10 L (19-24) mmol/L Sodium (137-145) mmol/L Potassium (3.5-5.1) mmol/L Chloride (98-107) mmol/L Carbon Dioxide (22-30) mmol/L BUN (9-20) mg/dL Creatinine (0.66-1.25) mg/dL Glucose (74-99) mg/dL POC Glucose (mg/dL) 35 L (70-110) mg/dL Plasma Lactic Acid Jeremie (0.7-2.0) mmol/L AST (17-59) U/L ALT (4-49) U/L Alkaline Phosphatase (38-126) U/L Troponin I (0.000-0.034) ng/mL Total Protein (6.3-8.2) g/dL Albumin (3.5-5.0) g/dL Urine Protein (Negative) Ur Leukocyte Esterase (Negative) Urine WBC (0-5) /hpf Urine Bacteria (None) /hpf Urine Mucus (None) /hpf Coronavirus (PCR) Detected A (Not Detectd) 07/24/22 07/24/22 07/24/22 Range/Units 12:49 12:49 13:52 WBC (3.8-10.6) k/uL RBC (4.30-5.90) m/uL Hgb (13.0-17.5) gm/dL Hct (39.0-53.0) % MCV (80.0-100.0) fL MCHC (31.0-37.0) g/dL Neutrophils # (Manual) (1.3-7.7) k/uL Metamyelocytes # (Man) (0) k/uL Myelocytes # (Manual) (0) k/uL Nucleated RBCs (0-0) /100 WBC Macrocytosis PT (9.0-12.0) sec INR (<1.2) ABG pH (7.35-7.45) ABG pCO2 (35-45) mmHg ABG pO2 (83-108) mmHg ABG HCO3 (21-25) mmol/L ABG Total CO2 (19-24) mmol/L Sodium (137-145) mmol/L Potassium (3.5-5.1) mmol/L Chloride (98-107) mmol/L Carbon Dioxide (22-30) mmol/L BUN (9-20) mg/dL Creatinine (0.66-1.25) mg/dL Glucose (74-99) mg/dL POC Glucose (mg/dL) 56 L 56 L 153 H (70-110) mg/dL Plasma Lactic Acid Jeremie (0.7-2.0) mmol/L AST (17-59) U/L ALT (4-49) U/L Alkaline Phosphatase (38-126) U/L Troponin I (0.000-0.034) ng/mL Total Protein (6.3-8.2) g/dL Albumin (3.5-5.0) g/dL Urine Protein (Negative) Ur Leukocyte Esterase (Negative) Urine WBC (0-5) /hpf Urine Bacteria (None) /hpf Urine Mucus (None) /hpf Coronavirus (PCR) (Not Detectd) Diabetes panel 07/24/22 Range/Units 10:24 Sodium 146 H (137-145) mmol/L Potassium 5.6 H (3.5-5.1) mmol/L Chloride 114 H (98-107) mmol/L Carbon Dioxide 11 L (22-30) mmol/L BUN 27 H (9-20) mg/dL Creatinine 1.72 H (0.66-1.25) mg/dL Glucose 139 H (74-99) mg/dL Calcium 8.8 (8.4-10.2) mg/dL AST 3754 H (17-59) U/L ALT 1506 H (4-49) U/L Alkaline Phosphatase 140 H (38-126) U/L Total Protein 5.8 L (6.3-8.2) g/dL Albumin 2.6 L (3.5-5.0) g/dL Calcium panel 07/24/22 Range/Units 10:24 Calcium 8.8 (8.4-10.2) mg/dL Albumin 2.6 L (3.5-5.0) g/dL Pituitary panel 07/24/22 Range/Units 10:24 Sodium 146 H (137-145) mmol/L Potassium 5.6 H (3.5-5.1) mmol/L Chloride 114 H (98-107) mmol/L Carbon Dioxide 11 L (22-30) mmol/L BUN 27 H (9-20) mg/dL Creatinine 1.72 H (0.66-1.25) mg/dL Glucose 139 H (74-99) mg/dL Calcium 8.8 (8.4-10.2) mg/dL Adrenal panel 07/24/22 Range/Units 10:24 Sodium 146 H (137-145) mmol/L Potassium 5.6 H (3.5-5.1) mmol/L Chloride 114 H (98-107) mmol/L Carbon Dioxide 11 L (22-30) mmol/L BUN 27 H (9-20) mg/dL Creatinine 1.72 H (0.66-1.25) mg/dL Glucose 139 H (74-99) mg/dL Calcium 8.8 (8.4-10.2) mg/dL Total Bilirubin 1.0 (0.2-1.3) mg/dL AST 3754 H (17-59) U/L ALT 1506 H (4-49) U/L Alkaline Phosphatase 140 H (38-126) U/L Total Protein 5.8 L (6.3-8.2) g/dL Albumin 2.6 L (3.5-5.0) g/dL Assessment and Plan (1) Pneumatosis intestinalis Narrative/Plan: 71-year-old male with septic picture and significant metabolic acidosis. Patient with CAT scan findings suggesting pneumatosis intestinalis. We'll proceed with exploratory laparotomy at this time. Case reviewed with intensive care service and ER at length. We discussed the risks with the patient's . She would like us to proceed with surgery and is not interested at this point and comfort measures. Risks of bleeding, infection, operative findings incompatible with life, possible need for bowel resection and/or ostomy, leak, abscess, hernia, respiratory failure, all reviewed. She understands wishes to proceed. Current Visit: Yes Status: Acute Code(s): K63.89 - OTHER SPECIFIED DISEASES OF INTESTINE SNOMED Code(s): 67004420
[2022-07-24 16:40] VITALS: TEMP 93.9
[2022-07-24 16:43] LABS: Glucose,Whole Blood 74 mg/dL (70-110)
[2022-07-24] MEDS ORDERED: DEXTROSE 5% IN WATER 1,000 ML with SODIUM BICARB (1 MEQ/ML) 150 ML IV SCH ×4 (16:45)
[2022-07-24] MEDS ORDERED: NOREPINEPHRINE 8 MG in SODIUM CHLORIDE 0.9% 250 ML IV SCH ×4 (16:45)
[2022-07-24] MEDS ORDERED: SODIUM CHLORIDE 0.9% 1,000 ML BAG ONE (17:15)
[2022-07-24] MEDS ORDERED: ROCURONIUM 10 MG/ML (5 ML VIAL) IV ONE (17:15)
[2022-07-24] MEDS ORDERED: SODIUM CHLORIDE 0.9% 1,000 ML IV ONE (17:15)
[2022-07-24] MEDS ORDERED: SODIUM CHLORIDE 0.9% 50 ML with ceFAZolin 2,000 MG IV ONE ×2 (18:00)
[2022-07-24] MEDS ORDERED: PIPERACILLIN-TAZOBACTAM 3.375 GM in SODIUM CHLORIDE 0.9% 100 ML IVPB SCH (18:00)
[2022-07-24] MEDS ORDERED: MORPHINE SULFATE 2 MG/ML SYRINGE IVP PRN (18:32)
--- NOTE | 2022-07-24 18:37 | P.OP ---
Date of Procedure: 07/24/22 Procedure(s) Performed: PREOPERATIVE DIAGNOSIS: Ischemic bowel POSTOPERATIVE DIAGNOSIS: Same PROCEDURE: exploratory laparotomy with fecal disimpaction SURGEON: Noris EBL: 10 mL ANESTHESIA: general COMPLICATIONS: None OPERATIVE PROCEDURE: patient placed in the operative table in the left decubitus position. The patient's fecal bolus was manually disimpacted. The patient was then placed supine. The abdomen was prepped and draped in usual sterile fashion after anesthesia obtained a right jugular central venous line and a right radial artery line. A midline incision was made using the scalpel. Entrance into the peritoneal cavity occurred bluntly. The fascia was opened using electrocautery. The patient's small bowel was inspected. The patient's small bowel was ischemic all the way from the ligament of Treitz to the ileocecal valve. The right colon was also ischemic appearing. The transverse colon and sigmoid colon had a more viable appearance. The superior mesenteric artery was palpated given the significant calcifications. I could not palpate a pulse in the superior mesenteric artery distal or proximal to the dense calcification. Given the operative findings and our discussion with the patient's preoperatively no further intervention took place. The abdomen was closed by reapproximating the fascia using a running double-stranded PDS suture. Skin was closed with glendy. Sterile dressing applied. DISPOSITION: Operative findings discussed with the patient's in the recovery room after the procedure was completed. CODE STATUS changed to no code at this time. Patient's family will have an opportunity to visit with them and then the patient will likely be made comfort measures at that point given the extent of small bowel ischemia. Patient's is agreeable at this time.
--- NOTE | 2022-07-24 18:40 | P.ANPRN ---
Procedure Note - Anesthesia - Invasive Line Right Central Line Time Out Performed: Yes Date of Procedure: 07/24/22 Location of Patient: OR Preparation: Sterile Prep, Sterile Dressing Ultrasound Used: Yes Purpose - Visualization and Identification of Vasculature: Yes Image Stored and Saved: Yes Narrative: Central line placement per sterile protocol utilized. Informed consent obtained from his . Central line placement per sterile protocol utilized. Right Internal jugular vein cannulated under aseptic p recautions. After cleaning with iodine based prep and draping, Ultrasound used to locate the vein and selginger technique used within introducer needle catheter combination . Ultrasound used to confirm the guidewire placement in the vein. 7Fr triple-lumen central venous catheter inserted under aseptic precautions. Sutured in place and dressed with Biopatch and Tegaderm. .
[2022-07-24 18:41] LABS: Glucose,Whole Blood 146 mg/dL (70-110)
[2022-07-24 19:03] LABS: Hypochromasia Marked; MCH 31.5 pg (25.0-35.0); MCHC 25.9 g/dL (31.0-37.0); Mean Platelet Volume 10.5; Platelet Count 95 k/uL (150-450); RBC 1.46 m/uL (4.30-5.90); RDW 13.3 % (11.5-15.5)
[2022-07-24 19:04] VITALS: BP 136/51; RESP 12
[2022-07-24 19:08] LABS: INR 3.8 (<1.2); Prothrombin Time 37.8 sec (9.0-12.0)
[2022-07-24 19:23] LABS: Macrocytosis Marked
[2022-07-24 19:25] LABS: MCV 121.4 fL (80.0-100.0)
[2022-07-24 19:26] LABS: ABG Oxygen Saturation 99.7 % (94-97); ABG PCO2 46 mmHg (35-45); ABG PO2 316 mmHg (83-108); ABG TCO2 10 mmol/L (19-24); Allen Test Performed? Yes
[2022-07-24 19:26] LABS: HCT 17.7 % (39.0-53.0); HGB 4.6 gm/dL (13.0-17.5)
[2022-07-24 19:29] LABS: ABG HCO3 8 mmol/L (21-25); ABG PH 6.87 (7.35-7.45)
[2022-07-24 19:40] LABS: African American GFR (CKD) 40 (>60 ml/min/1.73 sqM); Albumin 1.3 g/dL (3.5-5.0); Alkaline Phosphatase 165 U/L (38-126); Anion Gap 21 mmol/L; Blood Urea Nitrogen 23 mg/dL (9-20); Calcium 6.6 mg/dL (8.4-10.2); Carbon Dioxide 10 mmol/L (22-30); Chloride 117 mmol/L (98-107); Glucose 150 mg/dL (74-99); Magnesium 2.4 mg/dL (1.6-2.3); Non-African American GFR(CKD) 34 (>60 ml/min/1.73 sqM); Potassium 5.7 mmol/L (3.5-5.1); Sodium 148 mmol/L (137-145); Total Bilirubin 0.8 mg/dL (0.2-1.3); Total Protein 3.2 g/dL (6.3-8.2)
--- NOTE | 2022-07-24 19:41 | XR ---
EXAMINATION TYPE: XR chest 1V portable DATE OF EXAM: 07/24/2022 COMPARISON: 07/24/2022 7 hours ago HISTORY: Single view TECHNIQUE: . Single view FINDINGS: Heart is enlarged. There is some pulmonary vascular congestion and pulmonary interstitial edema. Ther e is nasogastric tube in the stomach. There is multilevel cervical spine fusion surgery. There is end otracheal tube 4 cm from the mikayla. There is right jugular catheter with tip in the superior vena ca va. There is mild blunting of the left costophrenic angle IMPRESSION: There is pulmonary edema that could be heart failure or RDS and not significantly differe nt than earlier today.
[2022-07-24 19:44] LABS: Band Neutrophils % 21 %; Large Platelets Present; Lymphocytes # (M) 1.72 k/uL (1.0-4.8); Metamyelocytes # (M) 0.88 k/uL (0); Metamyelocytes % 20 %; Monocytes # (M) 0.13 k/uL (0-1.0); Myelocytes # (M) 0.26 k/uL (0); Myelocytes % 6 %; Neutrophils % (M) 11 %; Nucleated Red Blood Cells 37 /100 WBC (0-0); Promyelocytes # (M) 0.09 k/uL (0); Promyelocytes % 2 %; Total Cells Counted 200; WBC 4.4 k/uL (3.8-10.6)
[2022-07-24 19:45] LABS: Polychromasia Present
[2022-07-24 20:12] LABS: Phosphorus 10.9 mg/dL (2.5-4.5)
[2022-07-24 20:13] LABS: ALT 6050 U/L (4-49)
[2022-07-24 20:28] LABS: AST >15000 U/L (17-59)
[2022-07-24] MEDS ORDERED: ONDANSETRON 4 MG/2 ML VIAL IVP PRN (20:56)
[2022-07-24] MEDS ORDERED: ATROPINE OPHTH SOLN 1% 5ML BTL SUBLINGUAL PRN (20:56)
[2022-07-24] MEDS ORDERED: LORazepam 1 MG/0.5 ML VIAL IV PRN (20:56)
[2022-07-24] MEDS ORDERED: HALOPERIDOL LACTATE 5 MG/ML 1 ML VIAL IM PRN (20:56)
[2022-07-24] MEDS ORDERED: ARTIFICIAL TEARS-HYPROMELLOSE DROPS 15 ML BTL BOTH EYES PRN (20:56)
[2022-07-24] MEDS ORDERED: MORPHINE SULFATE (100 MG/2 ML) 100 MG in SODIUM CHLORIDE 0.9% 100 ML IV SCH (21:00)
[2022-07-25 00:08] VITALS: PULSE 88
--- NOTE | 2022-07-25 02:23 | P.CONS ---
Past Medical History Past Medical History: Prostate Disorder Additional Past Medical History / Comment(s): recently went to neurologist and had syncopal episode. pt states he has been numb all over, neck pain, and weakness and unable to walk. states started years ago but recently went to doctor. possible exposure to agent orange History of Any Multi-Drug Resistant Organisms: None Reported Past Surgical History: No Surgical Hx Reported Past Psychological History: No Psychological Hx Reported Smoking Status: Current every day smoker Past Alcohol Use History: None Reported, Daily Past Drug Use History: None Reported - Past Family History family Additional Family Medical History / Comment(s): no reported CAD, OR CANCER Medications and Allergies Home Medications Medication Instructions Recorded Confirmed Type HYDROcodone/APAP 5-325MG [[place] 1 tab PO Q6HR PRN #24 tab 07/08/22 07/24/22 Rx 5-325] Acetaminophen Tab [Tylenol] 650 mg PO Q6HR PRN tab 07/09/22 07/24/22 Rx Cyclobenzaprine [Flexeril] 5 mg PO TID@0900,1300,209907/22/22 07/24/22 History Gabapentin 300 mg PO TID@0900,1300,2100 07/22/22 07/24/22 History Lactose-Reduced Food [Ensure Plus] 1 can PO TID@0900,1300,209907/22/22 07/24/22 History Lactulose [Constulose] 10 gm PO BID@0900,2100 07/22/22 07/24/22 History Omeprazole [PriLOSEC] 20 mg PO DAILY 07/22/22 07/24/22 History Sennosides-Docusate Sodium 2 tab PO DAILY PRN 07/22/22 07/24/22 History [Senokot-S] Doxycycline Hyclate 100 mg PO BID@0900,2100 07/24/22 07/24/22 History methylPREDNISolone [Medrol Dose See Taper PO DIRECTED 07/24/22 07/24/22 History Pack] Allergies Allergy/AdvReac Type Severity Reaction Status Date / Time No Known Allergies Allergy Verified 07/24/22 12:46 Physical Exam Vitals: Vital Signs Temp Pulse Resp BP Pulse Ox FiO2 07/24/22 19:00 73 12 07/24/22 18:45 73 12 136/51 07/24/22 18:33 100 07/24/22 17:10 90 28 H 97/60 92 L 07/24/22 16:53 90 28 H 94/58 92 L 07/24/22 16:39 93.9 F L 92 18 94/61 07/24/22 16:26 995.8 F H 93 33 H 89/61 90 L 07/24/22 16:00 100 30 H 90/60 90 L 07/24/22 15:21 90 07/24/22 15:00 100 30 H 95/60 95 07/24/22 14:50 99 30 H 94/60 95 07/24/22 13:44 96 F L 101 H 30 H 107/64 95 07/24/22 12:00 113 H 29 H 137/74 96 07/24/22 11:14 122 H 18 160/88 92 L 07/24/22 11:08 90 07/24/22 10:44 90 07/24/22 10:33 97.7 F 118 H 20 99/68 98 07/24/22 10:04 100 07/24/22 10:02 100 07/24/22 09:59 98.2 F 108 H 20 123/71 100 Intake and Output 07/24/22 07/24/22 07/24/22 06:59 14:59 22:59 Intake Total 162.840 Output Total 20 Balance 142.840 Intake: IV 150 Intake, IV Titration 12.840 Amount Norepinephrine 8 mg In 12.840 Sodium Chloride 0.9% 250 ml @ 0.03 MCG/KG/MIN 2. 896 mls/hr IV .Q24H [facility] Rx#:[id number] Output: Urine 10 Estimated Blood Loss 10 Other: Weight 49.895 kg 49.895 kg ABP, PAP, CO, CI - Last 8 Hours Arterial Blood Pressure 131/57 Arterial Blood Pressure 128/53 Results CBC & Chem 7: 07/24/22 18:50 07/24/22 18:50 Labs: Abnormal Lab Results - Last 24 Hours (Table) 07/24/22 07/24/22 07/24/22 Range/Units 10:24 10:24 10:24 WBC 12.0 H (3.8-10.6) k/uL RBC 2.76 L (4.30-5.90) m/uL Hgb 9.3 L (13.0-17.5) gm/dL Hct 31.8 L (39.0-53.0) % MCV 115.1 H D (80.0-100.0) fL MCHC 29.3 L (31.0-37.0) g/dL Plt Count (150-450) k/uL Neutrophils # (Manual) 9.00 H (1.3-7.7) k/uL Metamyelocytes # (Man) 0.72 H (0) k/uL Myelocytes # (Manual) 0.48 H (0) k/uL Promyelocytes # (Man) (0) k/uL Nucleated RBCs 2 H (0-0) /100 WBC Macrocytosis Marked A PT 16.8 H (9.0-12.0) sec INR 1.6 H (<1.2) ABG pH (7.35-7.45) ABG pCO2 (35-45) mmHg ABG pO2 (83-108) mmHg ABG HCO3 (21-25) mmol/L ABG Total CO2 (19-24) mmol/L ABG O2 Saturation (94-97) % ABG Lactic Acid (0.5-1.6) mmol/L Sodium (137-145) mmol/L Potassium (3.5-5.1) mmol/L Chloride (98-107) mmol/L Carbon Dioxide (22-30) mmol/L BUN (9-20) mg/dL Creatinine (0.66-1.25) mg/dL Glucose (74-99) mg/dL POC Glucose (mg/dL) (70-110) mg/dL Plasma Lactic Acid Jeremie (0.7-2.0) mmol/L Calcium (8.4-10.2) mg/dL Phosphorus (2.5-4.5) mg/dL Magnesium (1.6-2.3) mg/dL AST (17-59) U/L ALT (4-49) U/L Alkaline Phosphatase (38-126) U/L Troponin I (0.000-0.034) ng/mL Total Protein (6.3-8.2) g/dL Albumin (3.5-5.0) g/dL Urine Protein 1+ H (Negative) Ur Leukocyte Esterase Trace H (Negative) Urine WBC 17 H (0-5) /hpf Urine Bacteria Rare H (None) /hpf Urine Mucus Occasional H (None) /hpf Coronavirus (PCR) (Not Detectd) Crossmatch 07/24/22 07/24/22 07/24/22 Range/Units 10:24 10:24 10:24 WBC (3.8-10.6) k/uL RBC (4.30-5.90) m/uL Hgb (13.0-17.5) gm/dL Hct (39.0-53.0) % MCV (80.0-100.0) fL MCHC (31.0-37.0) g/dL Plt Count (150-450) k/uL Neutrophils # (Manual) (1.3-7.7) k/uL Metamyelocytes # (Man) (0) k/uL Myelocytes # (Manual) (0) k/uL Promyelocytes # (Man) (0) k/uL Nucleated RBCs (0-0) /100 WBC Macrocytosis PT (9.0-12.0) sec INR (<1.2) ABG pH (7.35-7.45) ABG pCO2 (35-45) mmHg ABG pO2 (83-108) mmHg ABG HCO3 (21-25) mmol/L ABG Total CO2 (19-24) mmol/L ABG O2 Saturation (94-97) % ABG Lactic Acid (0.5-1.6) mmol/L Sodium 146 H (137-145) mmol/L Potassium 5.6 H (3.5-5.1) mmol/L Chloride 114 H (98-107) mmol/L Carbon Dioxide 11 L (22-30) mmol/L BUN 27 H (9-20) mg/dL Creatinine 1.72 H (0.66-1.25) mg/dL Glucose 139 H (74-99) mg/dL POC Glucose (mg/dL) (70-110) mg/dL Plasma Lactic Acid Jeremie 15.0 H* (0.7-2.0) mmol/L Calcium (8.4-10.2) mg/dL Phosphorus (2.5-4.5) mg/dL Magnesium (1.6-2.3) mg/dL AST 3754 H (17-59) U/L ALT 1506 H (4-49) U/L Alkaline Phosphatase 140 H (38-126) U/L Troponin I 0.046 H* (0.000-0.034) ng/mL Total Protein 5.8 L (6.3-8.2) g/dL Albumin 2.6 L (3.5-5.0) g/dL Urine Protein (Negative) Ur Leukocyte Esterase (Negative) Urine WBC (0-5) /hpf Urine Bacteria (None) /hpf Urine Mucus (None) /hpf Coronavirus (PCR) (Not Detectd) Crossmatch 07/24/22 07/24/22 07/24/22 Range/Units 10:34 12:31 12:48 WBC (3.8-10.6) k/uL RBC (4.30-5.90) m/uL Hgb (13.0-17.5) gm/dL Hct (39.0-53.0) % MCV (80.0-100.0) fL MCHC (31.0-37.0) g/dL Plt Count (150-450) k/uL Neutrophils # (Manual) (1.3-7.7) k/uL Metamyelocytes # (Man) (0) k/uL Myelocytes # (Manual) (0) k/uL Promyelocytes # (Man) (0) k/uL Nucleated RBCs (0-0) /100 WBC Macrocytosis PT (9.0-12.0) sec INR (<1.2) ABG pH 6.84 L* (7.35-7.45) ABG pCO2 48 H (35-45) mmHg ABG pO2 146 H (83-108) mmHg ABG HCO3 8 L* (21-25) mmol/L ABG Total CO2 10 L (19-24) mmol/L ABG O2 Saturation (94-97) % ABG Lactic Acid (0.5-1.6) mmol/L Sodium (137-145) mmol/L Potassium (3.5-5.1) mmol/L Chloride (98-107) mmol/L Carbon Dioxide (22-30) mmol/L BUN (9-20) mg/dL Creatinine (0.66-1.25) mg/dL Glucose (74-99) mg/dL POC Glucose (mg/dL) 35 L (70-110) mg/dL Plasma Lactic Acid Jeremie (0.7-2.0) mmol/L Calcium (8.4-10.2) mg/dL Phosphorus (2.5-4.5) mg/dL Magnesium (1.6-2.3) mg/dL AST (17-59) U/L ALT (4-49) U/L Alkaline Phosphatase (38-126) U/L Troponin I (0.000-0.034) ng/mL Total Protein (6.3-8.2) g/dL Albumin (3.5-5.0) g/dL Urine Protein (Negative) Ur Leukocyte Esterase (Negative) Urine WBC (0-5) /hpf Urine Bacteria (None) /hpf Urine Mucus (None) /hpf Coronavirus (PCR) Detected A (Not Detectd) Crossmatch 07/24/22 07/24/22 07/24/22 Range/Units 12:49 12:49 13:00 WBC (3.8-10.6) k/uL RBC (4.30-5.90) m/uL Hgb (13.0-17.5) gm/dL Hct (39.0-53.0) % MCV (80.0-100.0) fL MCHC (31.0-37.0) g/dL Plt Count (150-450) k/uL Neutrophils # (Manual) (1.3-7.7) k/uL Metamyelocytes # (Man) (0) k/uL Myelocytes # (Manual) (0) k/uL Promyelocytes # (Man) (0) k/uL Nucleated RBCs (0-0) /100 WBC Macrocytosis PT (9.0-12.0) sec INR (<1.2) ABG pH (7.35-7.45) ABG pCO2 (35-45) mmHg ABG pO2 (83-108) mmHg ABG HCO3 (21-25) mmol/L ABG Total CO2 (19-24) mmol/L ABG O2 Saturation (94-97) % ABG Lactic Acid (0.5-1.6) mmol/L Sodium (137-145) mmol/L Potassium (3.5-5.1) mmol/L Chloride (98-107) mmol/L Carbon Dioxide (22-30) mmol/L BUN (9-20) mg/dL Creatinine (0.66-1.25) mg/dL Glucose (74-99) mg/dL POC Glucose (mg/dL) 56 L 56 L (70-110) mg/dL Plasma Lactic Acid Jeremie (0.7-2.0) mmol/L Calcium (8.4-10.2) mg/dL Phosphorus (2.5-4.5) mg/dL Magnesium (1.6-2.3) mg/dL AST (17-59) U/L ALT (4-49) U/L Alkaline Phosphatase (38-126) U/L Troponin I (0.000-0.034) ng/mL Total Protein (6.3-8.2) g/dL Albumin (3.5-5.0) g/dL Urine Protein (Negative) Ur Leukocyte Esterase (Negative) Urine WBC (0-5) /hpf Urine Bacteria (None) /hpf Urine Mucus (None) /hpf Coronavirus (PCR) (Not Detectd) Crossmatch See Detail 07/24/22 07/24/22 07/24/22 Range/Units 13:52 18:40 18:50 WBC (3.8-10.6) k/uL RBC 1.46 L (4.30-5.90) m/uL Hgb 4.6 L* D (13.0-17.5) gm/dL Hct 17.7 L* (39.0-53.0) % MCV 121.4 H D (80.0-100.0) fL MCHC 25.9 L (31.0-37.0) g/dL Plt Count 95 L D (150-450) k/uL Neutrophils # (Manual) (1.3-7.7) k/uL Metamyelocytes # (Man) 0.88 H (0) k/uL Myelocytes # (Manual) 0.26 H (0) k/uL Promyelocytes # (Man) 0.09 H (0) k/uL Nucleated RBCs 37 H (0-0) /100 WBC Macrocytosis Marked A PT (9.0-12.0) sec INR (<1.2) ABG pH (7.35-7.45) ABG pCO2 (35-45) mmHg ABG pO2 (83-108) mmHg ABG HCO3 (21-25) mmol/L ABG Total CO2 (19-24) mmol/L ABG O2 Saturation (94-97) % ABG Lactic Acid (0.5-1.6) mmol/L Sodium (137-145) mmol/L Potassium (3.5-5.1) mmol/L Chloride (98-107) mmol/L Carbon Dioxide (22-30) mmol/L BUN (9-20) mg/dL Creatinine (0.66-1.25) mg/dL Glucose (74-99) mg/dL POC Glucose (mg/dL) 153 H 146 H (70-110) mg/dL Plasma Lactic Acid Jeremie (0.7-2.0) mmol/L Calcium (8.4-10.2) mg/dL Phosphorus (2.5-4.5) mg/dL Magnesium (1.6-2.3) mg/dL AST (17-59) U/L ALT (4-49) U/L Alkaline Phosphatase (38-126) U/L Troponin I (0.000-0.034) ng/mL Total Protein (6.3-8.2) g/dL Albumin (3.5-5.0) g/dL Urine Protein (Negative) Ur Leukocyte Esterase (Negative) Urine WBC (0-5) /hpf Urine Bacteria (None) /hpf Urine Mucus (None) /hpf Coronavirus (PCR) (Not Detectd) Crossmatch 07/24/22 07/24/22 07/24/22 Range/Units 18:50 18:50 18:50 WBC (3.8-10.6) k/uL RBC (4.30-5.90) m/uL Hgb (13.0-17.5) gm/dL Hct (39.0-53.0) % MCV (80.0-100.0) fL MCHC (31.0-37.0) g/dL Plt Count (150-450) k/uL Neutrophils # (Manual) (1.3-7.7) k/uL Metamyelocytes # (Man) (0) k/uL Myelocytes # (Manual) (0) k/uL Promyelocytes # (Man) (0) k/uL Nucleated RBCs (0-0) /100 WBC Macrocytosis PT 37.8 H (9.0-12.0) sec INR 3.8 H (<1.2) ABG pH (7.35-7.45) ABG pCO2 (35-45) mmHg ABG pO2 (83-108) mmHg ABG HCO3 (21-25) mmol/L ABG Total CO2 (19-24) mmol/L ABG O2 Saturation (94-97) % ABG Lactic Acid 16.5 H* (0.5-1.6) mmol/L Sodium 148 H (137-145) mmol/L Potassium 5.7 H (3.5-5.1) mmol/L Chloride 117 H (98-107) mmol/L Carbon Dioxide 10 L (22-30) mmol/L BUN 23 H (9-20) mg/dL Creatinine 1.89 H (0.66-1.25) mg/dL Glucose 150 H (74-99) mg/dL POC Glucose (mg/dL) (70-110) mg/dL Plasma Lactic Acid Jeremie (0.7-2.0) mmol/L Calcium 6.6 L (8.4-10.2) mg/dL Phosphorus 10.9 H* (2.5-4.5) mg/dL Magnesium 2.4 H (1.6-2.3) mg/dL AST >85328 H (17-59) U/L ALT 6050 H (4-49) U/L Alkaline Phosphatase 165 H (38-126) U/L Troponin I (0.000-0.034) ng/mL Total Protein 3.2 L (6.3-8.2) g/dL Albumin 1.3 L (3.5-5.0) g/dL Urine Protein (Negative) Ur Leukocyte Esterase (Negative) Urine WBC (0-5) /hpf Urine Bacteria (None) /hpf Urine Mucus (None) /hpf Coronavirus (PCR) (Not Detectd) Crossmatch 07/24/22 Range/Units 19:21 WBC (3.8-10.6) k/uL RBC (4.30-5.90) m/uL Hgb (13.0-17.5) gm/dL Hct (39.0-53.0) % MCV (80.0-100.0) fL MCHC (31.0-37.0) g/dL Plt Count (150-450) k/uL Neutrophils # (Manual) (1.3-7.7) k/uL Metamyelocytes # (Man) (0) k/uL Myelocytes # (Manual) (0) k/uL Promyelocytes # (Man) (0) k/uL Nucleated RBCs (0-0) /100 WBC Macrocytosis PT (9.0-12.0) sec INR (<1.2) ABG pH 6.87 L* (7.35-7.45) ABG pCO2 46 H (35-45) mmHg ABG pO2 316 H (83-108) mmHg ABG HCO3 8 L* (21-25) mmol/L ABG Total CO2 10 L (19-24) mmol/L ABG O2 Saturation 99.7 H (94-97) % ABG Lactic Acid (0.5-1.6) mmol/L Sodium (137-145) mmol/L Potassium (3.5-5.1) mmol/L Chloride (98-107) mmol/L Carbon Dioxide (22-30) mmol/L BUN (9-20) mg/dL Creatinine (0.66-1.25) mg/dL Glucose (74-99) mg/dL POC Glucose (mg/dL) (70-110) mg/dL Plasma Lactic Acid Jeremie (0.7-2.0) mmol/L Calcium (8.4-10.2) mg/dL Phosphorus (2.5-4.5) mg/dL Magnesium (1.6-2.3) mg/dL AST (17-59) U/L ALT (4-49) U/L Alkaline Phosphatase (38-126) U/L Troponin I (0.000-0.034) ng/mL Total Protein (6.3-8.2) g/dL Albumin (3.5-5.0) g/dL Urine Protein (Negative) Ur Leukocyte Esterase (Negative) Urine WBC (0-5) /hpf Urine Bacteria (None) /hpf Urine Mucus (None) /hpf Coronavirus (PCR) (Not Detectd) Crossmatch Microbiology - Last 24 Hours (Table) 07/24/22 10:24 Urine Culture - Preliminary Urine,Voided Assessment and Plan Assessment: patient was made comfort care by family , and shortly after, before getting a chance to fully evaluate
--- NOTE | 2022-07-25 16:33 | P.DS ---
Providers Date of admission: 07/24/22 18:15 Expected date of discharge: 07/25/22 Attending physician: Michael Hamm Consults: 07/24/22 15:11 Consult Physician Urgent Consulting Provider: Santiago Kamara Consult Reason/Comments: Pneumatosis intestinalis, anemia, transaminitis, pneumonia, renal insuffici Do you want consulting provider notified?: Yes 07/24/22 15:12 Consult Physician Urgent Consulting Provider: David Snyder Consult Reason/Comments: Critical care management Do you want consulting provider notified?: Yes Primary care physician: Stated None - Discharge Diagnosis(es) (1) Pneumatosis intestinalis Patient presented to the ER intubated by EMS. Patient was critically ill and on CAT scan found to have pneumatosis. Discussion with the family led to the decision to proceed with exploratory laparotomy. The patient was found to have diffuse ischemic small bowel. The abdomen was closed and he was sent back to the ICU. The patient was initially no code but then made Comfort Care that evening and the patient . Status: Acute Plan - Discharge Summary New Discharge Prescriptions: No Action Lactose-Reduced Food [Ensure Plus] 1 can PO TID@0900,1300,2100 Cyclobenzaprine [Flexeril] 5 mg PO TID@0900,1300,2100 Omeprazole [PriLOSEC] 20 mg PO DAILY Doxycycline Hyclate 100 mg PO BID@0900,2099 HYDROcodone/APAP 5-325MG [[place] 5-325] 1 tab PO Q6HR PRN #24 tab PRN Reason: Pain Acetaminophen Tab [Tylenol] 650 mg PO Q6HR PRN tab PRN Reason: Mild Pain Or Fever > 100.5 Sennosides-Docusate Sodium [Senokot-S] 2 tab PO DAILY PRN PRN Reason: Constipation Gabapentin 300 mg PO TID@0900,1300,2100 Lactulose [Constulose] 10 gm PO BID@0900,2100 methylPREDNISolone [Medrol Dose Pack] See Taper PO DIRECTED Discharge Medication List HYDROcodone/APAP 5-325MG [[place] 5-325] 1 tab PO Q6HR PRN #24 tab 07/08/22 [Rx] Acetaminophen Tab [Tylenol] 650 mg PO Q6HR PRN tab 07/09/22 [Rx] Cyclobenzaprine [Flexeril] 5 mg PO TID@0900,1300,2100 22 [History] Gabapentin 300 mg PO TID@899,1299,209907/22/22 [History] Lactose-Reduced Food [Ensure Plus] 1 can PO TID@00,1299,209907/22/22 [History] Lactulose [Constulose] 10 gm PO BID@899,209907/22/22 [History] Omeprazole [PriLOSEC] 20 mg PO DAILY 07/22/22 [History] Sennosides-Docusate Sodium [Senokot-S] 2 tab PO DAILY PRN 07/22/22 [History] Doxycycline Hyclate 100 mg PO BID@899,209907/24/22 [History] methylPREDNISolone [Medrol Dose Pack] See Taper PO DIRECTED 07/24/22 [History] Follow up Appointment(s)/Referral(s): None,Stated [Primary Care Provider] - 1-2 days Discharge Disposition: - Preliminary Cause of Preliminary Cause of : Septic shock from ischemic bowel
== END 2022-07-24 21:36 | disposition expired | DRG 853 ==
LOC: EC 09:57 → 2SICU 18:15
PROVIDERS: ADMIT Surgery; ATTEND Surgery
PROC: 5A1935Z Respiratory Ventilation, Less than 24 Consecutive Hours (ICD-10-PCS; 2022-07-24)
PROC: 0D9670Z Drainage of Stomach with Drainage Device, Via Natural or Artificial Opening (ICD-10-PCS; 2022-07-24)
PROC: 02HV33Z Insertion of Infusion Device into Superior Vena Cava, Percutaneous Approach (ICD-10-PCS; 2022-07-24)
PROC: 0DJ00ZZ Inspection of Upper Intestinal Tract, Open Approach (ICD-10-PCS; principal; 2022-07-24 14:00)
PROC: 0DJD0ZZ Inspection of Lower Intestinal Tract, Open Approach (ICD-10-PCS; principal; 2022-07-24 14:00)
DX: A41.9 Sepsis, unspecified organism (principal); J18.9 Pneumonia, unspecified organism; K72.00 Acute and subacute hepatic failure without coma; R65.21 Severe sepsis with septic shock; U07.1 COVID-19; K55.9 Vascular disorder of intestine, unspecified; E87.20 Acidosis, unspecified; C25.9 Malignant neoplasm of pancreas, unspecified; D63.0 Anemia in neoplastic disease; K63.89 Other specified diseases of intestine; Z51.5 Encounter for palliative care; E16.2 Hypoglycemia, unspecified; B95.1 Streptococcus, group B, as the cause of diseases classified elsewhere; F17.210 Nicotine dependence, cigarettes, uncomplicated; R26.2 Difficulty in walking, not elsewhere classified; R53.1 Weakness; R00.0 Tachycardia, unspecified; K56.41 Fecal impaction; Z66 Do not resuscitate; Z20.822 Contact with and (suspected) exposure to COVID-19; Z79.891 Long term (current) use of opiate analgesic; Z79.899 Other long term (current) drug therapy; Z28.310 Unvaccinated for COVID-19
CPT/HCPCS: 36415; 36600; 70450; 71045; 71275; 72126; 74177; 80053; 81001; 82272; 82805; 83605; 83735; 84100; 84484; 85025; 85610; 85730; 86850; 86900; 86901; 86920; 87040; 87086; 87635; 93005; 96365; 96367; 96375; 99291